=== PATIENT | male | born 1950 | race Caucasian/White ===

== ENCOUNTER 2018-09-20 21:56 | Inpatient (IN) | payer MEDICARE ==
[2018-09-20] MEDS ORDERED: Amoxicillin/Potassium Clav 500 MG TAB PO SCH (23:00)
[2018-09-21 05:20] LABS: #Basophils 0.1 thou/uL (0.0-0.2); #Eosinphils 0.2 thou/uL (0.0-0.7); #Lymphocytes 0.9 thou/uL (1.20-3.40); #Monocytes 0.8 thou/uL (0.11-0.59); #Neutrophils 5.7 thou/uL (1.40-6.50); %Basophils 1.1 % (0.0-1.0); %Eosinophils 2.2 % (0.0-10.0); %Lymphocytes 11.4 % (21.0-51.0); %Monocytes 10.7 % (0.0-10.0); %Neutrophils 74.6 % (42.0-75.0); Hemoglobin 10.6 g/dL (14.0-18.0); Mean Corpuscular HGB CONC 33.2 g/dL (32.0-36.0); Mean Corpuscular Hemoglobin 30.6 pg (27.0-31.0); Mean Corpuscular Volume 92.2 fL (78.0-98.0); Mean Platelet Volume 7.6 fL (7.4-10.4); Platelet Count 254 thou/uL (130-400); RBC Distribution Width 12.2 % (11.5-14.5); Red Blood Cell (RBC) Count 3.46 mill/uL (4.70-6.10); White Blood Cell (WBC) Count 7.6 thou/uL (4.8-10.8)
[2018-09-21 05:40] LABS: ALT (SGPT) 16 U/L (8-55); AST (SGOT) 21 U/L (5-34); Albumin 2.5 g/dL (3.4-4.8); Alkaline Phosphatase 82 U/L (40-150); Anion Gap 9 mmol/L (10-20); BUN (Urea Nitrogen) 5 mg/dL (8.4-25.7); Bilirubin, Total 0.6 mg/dL (0.2-1.2); Calc. Creatinine Clearance 105 mL/min (70-130); Calcium 8.5 mg/dL (7.8-10.44); Carbon Dioxide 27 mmol/L (23-31); Chloride 102 mmol/L (98-107); Estimated GFR-MDRD Greater than 90; Glucose 81 mg/dL (80-115); Potassium 3.6 mmol/L (3.5-5.1); Protein, Total 5.5 g/dL (5.8-8.1); Sodium 134 mmol/L (136-145)
[2018-09-21] MEDS: Amoxicillin/Potassium Clav 500 MG TAB PO SCH ×2 (08:55→21:02)
[2018-09-21] MEDS: Enoxaparin Sodium 40 MG/0.4 ML SYRINGE SC SCH (08:56)
[2018-09-21] MEDS: Thiamine 100 MG TAB PO SCH (08:56)
[2018-09-21] MEDS: Folic Acid 1 MG TAB PO SCH (08:56)
[2018-09-21] MEDS ORDERED: Prevnar 13-Val Conj/PF 0.5 ML SYRINGE IM ONE ×2 (09:00→12:00)
--- NOTE | 2018-09-21 18:13 | PRG ---
DATE OF SERVICE: 09/21/2018 SUBJECTIVE: The patient is sitting up, eating supper, eating poorly. Has eaten breakfast very well, up to 25% of lunch and supper. States he cannot eat much more. Denying any nausea or vomiting. He has been working with therapy, feels unstable, but is cooperating. However, he is having hallucinat ions, seeing mine wirer outside his window, but with no agitation and according to nurses he did not s leep well, but did not try and climb out of bed. OBJECTIVE: VITAL SIGNS: Shows his temperature is 98, pulse 69, respirations 16, O2 sats 97% on room air, blood pressure 152/85. HEENT: Pupils are equal, round, and react to light and accommodation. Sclerae are anicteric. Conju nctivae pale. Oral mucous membranes well hydrated. NECK: Supple. There are no nodes or masses. JVP is not elevated. LUNGS: Clear. CARDIAC: Regular rhythm. ABDOMEN: Soft, nontender. SKIN AND EXTREMITIES: Display no edema, clubbing, cyanosis. NEUROLOGIC: Cranial nerves intact. Deep tendon reflex 2+ and equal. There is diffusely decreased s trength, but no decreased sensation. There is no tremor. LABORATORY DATA: Shows white count 7600, hematocrit 31, hemoglobin 10, sodium 134, potassium 3.6, ch loride 102, bicarbonate 27, BUN 5, creatinine 0.6, albumin 2.5, protein 5.5, calcium 8.5, glucose 81, AST 21 and ALT 16. ASSESSMENT AND PLAN: 1. A 68-year-old white male with history of alcohol abuse and some hallucinations, but no severe wit hdrawal being monitored closely. Librium ordered as needed for agitation. 2. Aspiration pneumonia, resolving with Augmentin. 3. Severe deconditioning, improving slowly with therapy. 4. Significant malnutrition with low albumin and decreased oral intake and we will stress the patien t have dietary consult.
--- NOTE | 2018-09-21 19:05 | PRG ---
DATE OF SERVICE: 09/20/2018 HISTORY OF PRESENT ILLNESS: The patient is a 68-year-old white male, never before seen by myself who presented to [facility] on 09/14 after being found down on the floor unrespon lissa. He was found to have hypoxic respiratory failure, aspiration pneumonia requiring intubation, w as also found to be in shock requiring IV fluids and shock protocol. He responded to IV fluids intub ation, broad spectrum antibiotics and improved. He did have a prolonged QT, but this was found to be due to long-term alcohol abuse, no acute cardiac pathology. Cardiac enzymes returned negative. Blo od cultures returned negative. He awakened and responded, was extubated. Did have problems with con fusion with no agitation, not requiring any alcohol withdrawal therapy. He still refused to eat; how ever, was very weak and did have some problem with hallucinations confabulation, but with no agitatio n. He was started on PT and was cooperating very poorly and was felt not to be able to be discharged home. There was a problem with family and discharge planning, but apparently sister has agreed to chalo rasheed medical decisions for him as he is incompetent at this time. He will therefore be accepted to [facility] for PT, OT. On admission, he was taken thiamine 100 mg daily, folic acid 1 mg da carlos, Pepcid 20 every 12 hours, Lovenox 40 daily, Augmentin 500 q.12 hours for 7 days for possible asp iration pneumonia and Tylenol as needed. ALLERGIES: He has no known allergies. FAMILY MEDICAL HISTORY: Noncontributory. PAST MEDICAL HISTORY: Essentially negative obtained from the family. REVIEW OF SYSTEMS: HEENT: Denies any headaches, dizziness, change in vision or hearing, hoarseness or dysphagia. Pulmonary: Denies cough, sputum production, pneumonia, asthma, tuberculosis. Cardiov ascular: Denies chest pain, orthopnea, paroxysmal nocturnal dyspnea or edema. Gastrointestinal: He denies nausea, vomiting, diarrhea, constipation. He is having decreased appetite. Genitourinary: Denies dysuria, hematuria, nocturia. Musculoskeletal: He has some mild stiffness in joints and extr emities. Neurologic: Denies localized numbness, weakness in arms or extremities. PHYSICAL EXAMINATION: GENERAL: The patient is a thin middle-aged white male, appears in no acute distress, oriented x2 per son and place, but unable to give significant history. VITAL SIGNS: Show a temperature of 97.8, pulse 72, respirations 20, O2 sats 96% on room air, blood p ressure 128/78. HEENT: Pupils are equal, round, and react to light and accommodation. Sclerae are anicteric, Conjun ctivae pale. Oral mucous membranes well hydrated. NECK: Supple, no nodes or masses. JVP is not elevated. LUNGS: Clear, decreased breath sounds, no rales or rhonchi. CARDIAC: Shows regular rhythm. No gallops or murmurs. ABDOMEN: Soft, nontender with no masses or organomegaly. EXTREMITIES: Display no edema, clubbing, cyanosis. NEUROLOGICAL: Intact. No focal findings, but does appear to have problems with recent memory and so me confabulation . ASSESSMENT AND PLAN: A 68-year-old white male with a history of alcohol abuse, possibly had alcohol intoxication, subsequent aspiration pneumonia requiring admission to the hospital for septic shock, i ntubation, sepsis protocol has improved, but still not eating well. Still very weak and is therefore admitted to the [facility] for PT, OT, and monitoring of his nutrition. He is on ora l Augmentin at this time for his resolving aspiration pneumonia appears to be in no respiratory distr ess. He is having some mild confusion and we monitor closely for withdrawal. Discharge planning abebe l be started on admission.
[2018-09-21] MEDS: Acetaminophen 325 MG TAB PO PRN (21:02)
[2018-09-22] MEDS: Enoxaparin Sodium 40 MG/0.4 ML SYRINGE SC SCH (08:36)
[2018-09-22] MEDS: Folic Acid 1 MG TAB PO SCH (08:36)
[2018-09-22] MEDS: Amoxicillin/Potassium Clav 500 MG TAB PO SCH ×2 (08:36→21:02)
[2018-09-22] MEDS: Thiamine 100 MG TAB PO SCH (08:36)
--- NOTE | 2018-09-22 16:02 | PRG ---
DATE OF SERVICE: 09/22/2018 SUBJECTIVE: Mr. Eldridge is resting in bed comfortably. He is confused. He states that he has not seen me in a long time, and he has never seen me in the past. He also states that people keep bring ing him sweets every 30 minutes and I discussed with nursing and that is not happening. He is not blandon ving any tremors. He is not agitated. I did start him on some Librium p.r.n., although he is about 2 weeks out. OBJECTIVE: VITAL SIGNS: He is afebrile, heart rate 67, respirations 16, oxygen saturation 99% on room air, bloo d pressure 114/73. CARDIOVASCULAR: S1, S2 plus. RESPIRATORY SYSTEM: Normal vesicular breath sounds. ABDOMEN: Soft, nontender, bowel sounds heard in all quadrants. EXTREMITIES: Without cyanosis or clubbing. CENTRAL NERVOUS SYSTEM: Significant malnutrition and deconditioning. LABORATORY VALUES: White count of 7.6, H and H are 10.6 and 31.9. Sodium 134, potassium 3.6, BUN an d creatinine are 5 and 0.64. IMPRESSION: 1. Resolving aspiration pneumonitis. 2. Significant protein calorie malnutrition. 3. History of alcohol abuse. 4. Significant deconditioning. PLAN: 1. Nutritional support. 2. Complete Augmentin for a total of 10 days. 3. Monitor respiratory status. 4. Monitor for any signs or symptoms of alcohol withdrawal. 5. Librium p.r.n. 6. PT, OT evaluate and treat. 7. Routine laboratory values. 8. No family at bedside.
[2018-09-22] MEDS: Acetaminophen 325 MG TAB PO PRN (21:02)
[2018-09-22] MEDS: chlordiazePOXIDE HCl 25 MG CAP PO PRN (21:02)
[2018-09-23] MEDS: Folic Acid 1 MG TAB PO SCH (08:03)
[2018-09-23] MEDS: Amoxicillin/Potassium Clav 500 MG TAB PO SCH ×2 (08:03→20:23)
[2018-09-23] MEDS: Thiamine 100 MG TAB PO SCH (08:03)
[2018-09-23] MEDS: Enoxaparin Sodium 40 MG/0.4 ML SYRINGE SC SCH (08:03)
--- NOTE | 2018-09-23 15:31 | PRG ---
DATE OF SERVICE: 09/23/2018 SUBJECTIVE: Mr. Eldridge is still confused, but he is apparently eating better. No real symptoms s uggestive of alcohol withdrawal. No family at bedside. OBJECTIVE: VITAL SIGNS: He is afebrile, heart rate 63, respirations 18, oxygen saturation 99% on room air, bloo d pressure 139/78. CARDIOVASCULAR SYSTEM: S1 and S2 plus. RESPIRATORY SYSTEM: Normal vesicular breath sounds. ABDOMEN: Soft, nontender, bowel sounds heard in all quadrants. EXTREMITIES: Without cyanosis or clubbing. IMPRESSION: 1. Resolving aspiration pneumonitis. 2. History of alcohol abuse. 3. Protein-calorie malnutrition. 4. Deconditioning. PLAN: 1. Continue Augmentin. 2. Nutritional support. 3. DVT and stress ulcer prophylaxis. 4. Decubitus precautions. 5. Routine laboratory values.
[2018-09-23] MEDS: Acetaminophen 325 MG TAB PO PRN (20:23)
[2018-09-23] MEDS: chlordiazePOXIDE HCl 25 MG CAP PO PRN (23:21)
[2018-09-24] MEDS: Enoxaparin Sodium 40 MG/0.4 ML SYRINGE SC SCH (08:36)
[2018-09-24] MEDS: Folic Acid 1 MG TAB PO SCH (08:37)
[2018-09-24] MEDS: Thiamine 100 MG TAB PO SCH (08:37)
[2018-09-24] MEDS: Amoxicillin/Potassium Clav 500 MG TAB PO SCH ×2 (08:37→20:26)
[2018-09-24] MEDS: Acetaminophen 325 MG TAB PO PRN (20:25)
[2018-09-24] MEDS: chlordiazePOXIDE HCl 25 MG CAP PO PRN (21:34)
--- NOTE | 2018-09-25 07:31 | PRG ---
DATE OF SERVICE: 09/24/2018 SUBJECTIVE: The patient lying in the bed, sleeping, difficult to arouse, but does awaken and is aaron d at this time, but appears to be lethargic. OBJECTIVE: Vital signs show a blood pressure of 134/85, temperature is 98.6, pulse 84, respirations 18, O2 sats 99% on room air. Physical Therapy states that the patient is max assist on transfers, blandon ving difficulty with cognition and cooperation and may require 24-hour assistance and physical assist ance at discharge. ASSESSMENT: 1. Severe deconditioning and physically also cognitive deficits possibly related to long-term ETOH a buse 2. Resolving aspiration pneumonia with no evidence of dysphagia. 3. Severe protein calorie malnutrition, improving in the hospital with increased feeding. PLAN: Finish Augmentin for aspiration pneumonia. Continue PT, OT. Continue stress ulcer and DVT pr ophylaxis. Continue nutritional support. Consult case management for discharge planning.
[2018-09-25] MEDS: Acetaminophen 325 MG TAB PO PRN (08:21)
[2018-09-25] MEDS: Enoxaparin Sodium 40 MG/0.4 ML SYRINGE SC SCH (08:21)
[2018-09-25] MEDS: Amoxicillin/Potassium Clav 500 MG TAB PO SCH ×2 (08:21→20:26)
[2018-09-25] MEDS: Thiamine 100 MG TAB PO SCH (08:21)
[2018-09-25] MEDS: Folic Acid 1 MG TAB PO SCH (08:21)
[2018-09-25] MEDS: chlordiazePOXIDE HCl 25 MG CAP PO PRN (20:26)
[2018-09-26] MEDS: Amoxicillin/Potassium Clav 500 MG TAB PO SCH ×2 (08:06→20:36)
[2018-09-26] MEDS: Thiamine 100 MG TAB PO SCH (08:07)
[2018-09-26] MEDS: Folic Acid 1 MG TAB PO SCH (08:07)
[2018-09-26] MEDS: Enoxaparin Sodium 40 MG/0.4 ML SYRINGE SC SCH (08:07)
--- NOTE | 2018-09-26 18:12 | PRG ---
DATE OF SERVICE: 09/26/2018 SUBJECTIVE: The patient is lying in bed, awake and alert, fairly lucid. He states he is not against going to the skilled nursing. He has not been cooperating with therapy. OBJECTIVE: VITAL SIGNS: Blood pressure 132/73, O2 sats 98% on room air, temperature 98.7. ASSESSMENT: 1. 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 Resolving aspiration pneumonia. 3. Severe deconditioning. 4. Malnutrition, improving with good appetite. PLAN: 1. Discussed with PT, OT tomorrow. 2. Discussed with case management.
--- NOTE | 2018-09-26 18:47 | PRG ---
DATE OF SERVICE: 09/25/2018 SUBJECTIVE: The patient feels well, lying in the bed, but very confused and not cooperating well wit h therapy. OBJECTIVE: VITAL SIGNS: Temperature is 98.7, O2 sats 95% on room air, blood pressure 132/73. LUNGS: Clear. CARDIAC: Regular rhythm. ABDOMEN: Soft and nontender. The patient only activity, going to the bathroom with assistance, but not really cooperating with the rapy. Complains of burning pain in the feet. ASSESSMENT: 1. Possible Wernicke's encephalopathy causing confusion, nystagmus, and neuropathy. 2. Severe deconditioning with poor cooperation with physical therapy. 3. Resolved aspiration pneumonia. PLAN: 1. Continue PT and OT. 2. Discussed with physical therapy. 3. Consider alf placement.
[2018-09-26] MEDS: Acetaminophen 325 MG TAB PO PRN (20:36)
[2018-09-26] MEDS: chlordiazePOXIDE HCl 25 MG CAP PO PRN (20:36)
[2018-09-27] MEDS: Amoxicillin/Potassium Clav 500 MG TAB PO SCH ×2 (08:35→20:37)
[2018-09-27] MEDS: Folic Acid 1 MG TAB PO SCH (08:35)
[2018-09-27] MEDS: Acetaminophen 325 MG TAB PO PRN ×2 (08:35→16:31)
[2018-09-27] MEDS: Thiamine 100 MG TAB PO SCH (08:35)
[2018-09-27] MEDS: Enoxaparin Sodium 40 MG/0.4 ML SYRINGE SC SCH (08:35)
--- NOTE | 2018-09-28 07:41 | PRG ---
DATE OF SERVICE: 09/27/2018 SUBJECTIVE: The patient has been more sedated for the last several days. The nurses feels his Libri um can be decreased. He is not having any agitation. He is cooperating poorly with physical therapy . OBJECTIVE: VITAL SIGNS: Temperature 98.6, pulse 96, respirations 20, O2 sats 98% on room air, blood pressure 13 7/81. The patient is eating 40-100% of meals, getting stronger; however, still having ataxia, dizziness, an d neuropathy. He could not ambulate last visit secondary to the ataxia, we will discuss with PT. ASSESSMENT: 1. Wernicke's encephalopathy, persistent limiting therapy with cognitive and physical ability. 2. Severe deconditioning, poor cooperation, improving with therapy. 3. Resolved aspiration pneumonia on Augmentin until 09/29/2018.
[2018-09-28] MEDS: Folic Acid 1 MG TAB PO SCH (08:21)
[2018-09-28] MEDS: Thiamine 100 MG TAB PO SCH (08:21)
[2018-09-28] MEDS: Amoxicillin/Potassium Clav 500 MG TAB PO SCH ×2 (08:21→20:48)
[2018-09-28] MEDS: Acetaminophen 325 MG TAB PO PRN ×2 (08:48→19:34)
--- NOTE | 2018-09-28 13:50 | DIS ---
DATE OF ADMISSION: 09/21/2018 DATE OF TRANSFER: 09/28/2018 to [facility]. FINAL DIAGNOSES: 1. Wernicke-Korsakoff syndrome with encephalopathy and ataxia. 2. Severe deconditioning, poor cooperation with therapy. 3. Resolved aspiration pneumonia. HOSPITAL COURSE: The patient is a 68-year-old white male, never before seen by myself [facility] being found down on the floor with hypoxic respiratory failure, aspiration pneumonia, septic shock, responded to aggressive treatment with IV fluids, intubation, broad spectrum antibioti cs and improved daily, but was cooperating very poorly with PT and OT secondary to his weakness and a lso his mental status as he had problems with hallucination and confabulation. He was therefore velez sferred to [facility] on 09/20/2018 on thiamine, folic acid, and finishing Augmentin thera py for his aspiration pneumonia. He still had some hallucinations and confabulations on admission, b ut he was in no distress; however, he was unable to cooperate with therapy because of significant goldie corina and confusion and inability to follow directions and slowly progressed with this therapy until it was felt that he had reached maximum hospital benefit and was safe to be transferred to the [facility] for continued therapy. It is felt that he most likely is going to require long-te care. His aspiration pneumonia completely resolved. His laboratory on admission showed a white c ount 7600, hematocrit 31, hemoglobin 10, sodium 134, potassium 3.6, chloride 102, bicarbonate 27, BUN 5, creatinine 0.64, total protein 5.5, albumin 2.5. He will be followed by myself at the custodial. He will continue on the medications of folic acid 1 mg daily, thiamine 100 mg daily, Tylenol as neede d, handheld nebulizer with albuterol as needed, famotidine 20 twice daily. His Librium has been disc ontinued because of sedation and no significant agitation and his antibiotics have finished. His prognosis is poor and most likely this is chronic symptoms.
--- NOTE | 2018-09-29 08:26 | PRG ---
DATE OF SERVICE: 09/29/2018 DATE OF ADMISSION: 09/20/2018 HISTORY OF PRESENT ILLNESS: Mr. Eldridge is a 68-year-old white male admitted to Dr. Ruggiero after he presented to [facility] with being unresponsive. He was found to have hypoxic respirato ry failure, aspiration pneumonia requiring intubation, shock requiring IV fluids and shock protocol, Wernicke/Korsakoff syndrome and generalized weakness. The patient was stabilized and transferred to [facility] for physical therapy and occupational therapy and to finish his Augmentin for his aspiration pneumonia. Unfortunately, the patient has been unable to participate well with physical therapy and occupational therapy. He was supposed to be transferred yesterday to long-term care at the correction, but adam arently, his sister were resistant to sign the papers because then they were liable for his bills. A PS has become involved and hopefully we will be able to place this patient to where he can get some w ell needed care. PHYSICAL EXAMINATION: VITAL SIGNS: This morning reveal blood pressure 148/88, pulse 97-99, respirations 20, O2 sat 99% on room air, T-max 99.7. GENERAL: This is a well-developed, well-nourished, very thin, white haired, bearded male that was aw wili upon my walking in. Absolutely confused and oriented to self, not place, time or situation. Jerry ps mumbling that he does not like the idiots here, then keep walking around his room and he needs to get out of here. HEENT: Reveals normocephalic, nontraumatic cranium. The pupils are equally round. Nose and throat are dry. NECK: Supple, without mass, nodes or bruits. LUNGS: Chest is clear to auscultation. No rales, rhonchi, wheezes or cough is heard. HEART: Reveals a regular rate and rhythm without murmurs, gallops or rubs. ABDOMEN: Scaphoid, soft, nontender, without organomegaly, normal bowel sounds are noted. No rebound or guarding is noted. : Deferred. EXTREMITIES: Reveal no clubbing, cyanosis or edema. The patient is very thin and has some muscle wa sting. ASSESSMENT: 1. Wernicke-Korsakoff syndrome with encephalopathy and ataxia. 2. Severe deconditioning and weakness. 3. Poor cooperation and unable to follow commands. 4. Resolved aspiration pneumonia. PLAN: 1. The patient has been referred to Adult Protective Services for further evaluation and help in christine cement. 2. We will continue the patient here until he can be placed. 3. Patient will be continued to be followed by Dr. Ruggiero when he returns on Monday night.
[2018-09-29] MEDS: Amoxicillin/Potassium Clav 500 MG TAB PO SCH ×2 (08:47→20:25)
[2018-09-29] MEDS: Thiamine 100 MG TAB PO SCH (08:47)
[2018-09-29] MEDS: Folic Acid 1 MG TAB PO SCH (08:47)
[2018-09-29] MEDS: Acetaminophen 325 MG TAB PO PRN (09:59)
--- NOTE | 2018-09-30 07:09 | PRG ---
DATE OF SERVICE: 09/30/2018. SUBJECTIVE: Mr. Eldridge is a 68-year-old alcoholic white male that was brought to [facility] after being found on the ground unresponsive. He was found to have hypoxic respiratory failure, aspiration pneumonia requiring intubation, shock requiring IV fluids and shock protocol. He is noted to have Wernicke-Korsakoff syndrome and generalized weakness. He was transferred to [facility] after being stabilized for occupational therapy and physical therapy. He is also here to finish his Augmentin for his aspiration pneumonia. The patient has been unable to participate with therapy, because of his Wernicke-Korsakoff syndrome a nd his inability to follow commands. He is also significantly demented and confused. Adult [facility] has been called and is involved in finding placement for him, because his family members refused to take responsibility for him. PHYSICAL EXAMINATION: VITAL SIGNS: Today reveal blood pressure at 139/88, pulse 97, respirations 18, O2 sat 96%-97% on pamela m air, T-max 97.6. GENERAL: This is a well-developed, well-nourished, very thin white male resting, but awake, so that he makes all types of comments as soon as he walked into the room. Last night, the nurses reported t hat he said he was from another plan and he was only going to be here for a couple of months. He als o said that he was going to go play a round of tennis this morning. Generally, this is a well-develo ped, well-nourished, thin, bearded white male in no apparent distress. Absolutely confused and orien angelica only to self. HEENT: Reveals normocephalic, nontraumatic cranium. Pupils equal, round, and reactive. Extraocular movements intact. Nose and throat are moist this morning. NECK: Supple, without mass, nodes, bruits. LUNGS: Chest is clear to auscultation. No rales, no rhonchi, no wheezes are noted. No cough is not ed. HEART: Reveals a regular rate and rhythm without murmurs, gallops or rubs, although it is very dista nt. ABDOMEN: Soft, scaphoid, nontender, without organomegaly. Normal bowel sounds are noted in all 4 qu adrants. No rebound or guarding is noted. GENITOURINARY: Deferred. EXTREMITIES: Reveal no clubbing, cyanosis or edema, just generalized weakness. The patient is very thin, has muscle wasting. IMPRESSION: 1. Wernicke-Korsakoff syndrome with encephalopathy and ataxia. 2. Severe deconditioning and weakness. 3. Poor cooperation, unable to follow commands. 4. Resolved aspiration pneumonia. PLAN: 1. Patient has been referred to Adult Protective Services for placement. 2. Continue supportive care here. 3. Dr. Ruggiero will continue to follow the patient and will return compensation and benefits analyst tonight after 9:00.
[2018-09-30] MEDS: Acetaminophen 325 MG TAB PO PRN (09:06)
[2018-09-30] MEDS: Folic Acid 1 MG TAB PO SCH (09:06)
[2018-09-30] MEDS: Thiamine 100 MG TAB PO SCH (09:06)
[2018-10-01 05:43] LABS: #Basophils 0.1 thou/uL (0.0-0.2); #Eosinphils 0.2 thou/uL (0.0-0.7); #Lymphocytes 1.4 thou/uL (1.20-3.40); #Monocytes 0.9 thou/uL (0.11-0.59); #Neutrophils 4.2 thou/uL (1.40-6.50); %Basophils 1.1 % (0.0-1.0); %Lymphocytes 20.9 % (21.0-51.0); %Monocytes 12.6 % (0.0-10.0); %Neutrophils 62.5 % (42.0-75.0); Hemoglobin 9.9 g/dL (14.0-18.0); Mean Corpuscular HGB CONC 31.4 g/dL (32.0-36.0); Mean Corpuscular Hemoglobin 29.9 pg (27.0-31.0); Mean Corpuscular Volume 95.2 fL (78.0-98.0); Mean Platelet Volume 6.2 fL (7.4-10.4); Platelet Count 241 thou/uL (130-400); RBC Distribution Width 13.8 % (11.5-14.5); Red Blood Cell (RBC) Count 3.31 mill/uL (4.70-6.10); White Blood Cell (WBC) Count 6.8 thou/uL (4.8-10.8)
[2018-10-01 05:55] LABS: ALT (SGPT) 21 U/L (8-55); AST (SGOT) 25 U/L (5-34); Alkaline Phosphatase 141 U/L (40-150); Anion Gap 12 mmol/L (10-20); BUN (Urea Nitrogen) 19 mg/dL (8.4-25.7); Bilirubin, Total 0.2 mg/dL (0.2-1.2); Calc. Creatinine Clearance 101 mL/min (70-130); Carbon Dioxide 23 mmol/L (23-31); Chloride 109 mmol/L (98-107); Estimated GFR-MDRD Greater than 90; Globulin 3.1 g/dL (2.4-3.5); Glucose 112 mg/dL (80-115); Protein, Total 6.1 g/dL (5.8-8.1); Sodium 140 mmol/L (136-145)
[2018-10-01] MEDS: Thiamine 100 MG TAB PO SCH (08:50)
[2018-10-01] MEDS: Folic Acid 1 MG TAB PO SCH (08:50)
[2018-10-02] MEDS: Folic Acid 1 MG TAB PO SCH (08:28)
[2018-10-02] MEDS: Thiamine 100 MG TAB PO SCH (08:29)
[2018-10-03] MEDS: Folic Acid 1 MG TAB PO SCH (08:55)
[2018-10-03] MEDS: Thiamine 100 MG TAB PO SCH (08:55)
--- NOTE | 2018-10-03 19:33 | PRG ---
DATE OF SERVICE: 10/03/2018 SUBJECTIVE: The patient feels well, lying in bed, resting and is asking for Francois cigarettes now, b ecoming slightly agitated, but still confused and unwilling to cooperate, but in no distress. OBJECTIVE: VITAL SIGNS: Temperature 97.8, pulse 96, respirations 18, O2 sats 94% on room air, blood pressure is 135/84. ASSESSMENT: 1. Stable Wernicke's encephalopathy with no improvement 2. Nicotine abuse, requesting cigarettes. 3. Severe deconditioning. 4. Improved nutrition with good appetite. PLAN: Start nicotine patch. [facility] Apparently, they may [facility] the patient the family accepts.
--- NOTE | 2018-10-03 20:13 | PRG ---
DATE OF SERVICE: 10/01/2018 SUBJECTIVE: The patient is waiting discharge to custodial and has reached maximum hospital benefi t from PT secondary to cognitive deficits. Apparently, sister has not agreed to sign him in and ther efore the patient is here awaiting Adult Protective Services. OBJECTIVE: VITAL SIGNS: Temperature is 97.4, pulse 86, respirations 16, O2 sats 99% on room air, blood pressure is . LUNGS: Clear. CARDIAC: Showed regular rhythm. ABDOMEN: Soft and nontender. SKIN AND EXTREMITIES: Showed no edema, clubbing or cyanosis. Physical therapy states that the patient has been discontinued from therapy. ASSESSMENT: 1. Wernicke's encephalopathy with cognitive deficits limiting therapy, unable to progress and awaiti ng custodial placement. 2. Severe deconditioning and weakness, stable. 3. Resolved aspiration pneumonia. PLAN: Await results of Adult Protective Services. Continue supportive care.
--- NOTE | 2018-10-03 20:13 | PRG ---
DATE OF SERVICE: 10/02/2018 SUBJECTIVE: The patient feels well, lying in bed, in no distress. Apparently, however, Adult Protec tive Services felt that they did not want to take on his case [facility] care. OBJECTIVE: VITAL SIGNS: Blood pressure 134/91, O2 sats 94% on room air, pulse 99. LUNGS: Clear. CARDIAC: Shows regular rhythm. ABDOMEN: Soft and nontender. ASSESSMENT: Persistent Wernicke's encephalopathy and persistent deconditioning secondary to refusal to cooperate. PLAN: Possible referral to ethics committee for discharge planning.
[2018-10-04] MEDS: Folic Acid 1 MG TAB PO SCH (09:18)
[2018-10-04] MEDS: Nicotine 21 MG PATCH TD SCH (09:18)
[2018-10-04] MEDS: Thiamine 100 MG TAB PO SCH (09:18)
[2018-10-05] MEDS: Folic Acid 1 MG TAB PO SCH (08:03)
[2018-10-05] MEDS: Nicotine 21 MG PATCH TD SCH (08:04)
[2018-10-05] MEDS: Thiamine 100 MG TAB PO SCH (08:05)
[2018-10-06] MEDS: Nicotine 21 MG PATCH TD SCH (08:35)
[2018-10-06] MEDS: Folic Acid 1 MG TAB PO SCH (08:35)
[2018-10-06] MEDS: Thiamine 100 MG TAB PO SCH (08:35)
[2018-10-06] MEDS: Acetaminophen 325 MG TAB PO PRN ×2 (14:46→20:42)
--- NOTE | 2018-10-06 19:15 | PRG ---
DATE OF SERVICE: 10/06/2018 SUBJECTIVE: Mr. Eldridge is doing the same. He is pleasantly confused. No family at bedside. Dis cussed with nursing and no concerns. Apparently, [facility] are [facility]. OBJECTIVE: VITAL SIGNS: He is afebrile, heart rate is 100, respirations are 18, oxygen saturation is 97% on pamela m air, blood pressure 124/77. CARDIOVASCULAR: S1, S2 . RESPIRATORY SYSTEM: Normal vesicular breath sounds. ABDOMEN: Soft, nontender, bowel sounds heard in all quadrants. EXTREMITIES: Without cyanosis or clubbing. Peripheral pulses are palpable. IMPRESSION: 1. Wernicke's encephalopathy from significant alcohol abuse. 2. Resolved aspiration pneumonitis. 3. Protein calorie malnutrition. 4. Deconditioning. PLAN: 1. Continue nutritional support. 2. DVT and stress ulcer prophylaxis. 3. Decubitus precautions. 4. Routine laboratory values. 5. Placement.
[2018-10-07] MEDS: Thiamine 100 MG TAB PO SCH (08:47)
[2018-10-07] MEDS: Folic Acid 1 MG TAB PO SCH (08:47)
[2018-10-07] MEDS: Nicotine 21 MG PATCH TD SCH (08:47)
[2018-10-08] MEDS: Folic Acid 1 MG TAB PO SCH ×2 (09:10→09:11)
[2018-10-08] MEDS: Nicotine 21 MG PATCH TD SCH (09:10)
[2018-10-08] MEDS: Thiamine 100 MG TAB PO SCH ×2 (09:10→09:39)
[2018-10-08] MEDS ORDERED: cloNIDine 0.1 MG TAB PO SCH (13:45)
[2018-10-08] MEDS: cloNIDine 0.1mg/24 Hour PATCH TD SCH (17:59)
[2018-10-09] MEDS: Thiamine 100 MG TAB PO SCH (08:15)
[2018-10-09] MEDS: Folic Acid 1 MG TAB PO SCH (08:15)
[2018-10-09] MEDS: Nicotine 21 MG PATCH TD SCH (08:15)
[2018-10-09] MEDS: Acetaminophen 325 MG TAB PO PRN ×3 (08:15→23:54)
[2018-10-10] MEDS: Nicotine 21 MG PATCH TD SCH (08:23)
[2018-10-10] MEDS: Folic Acid 1 MG TAB PO SCH (08:23)
[2018-10-10] MEDS: Thiamine 100 MG TAB PO SCH (08:23)
--- NOTE | 2018-10-10 18:35 | PRG ---
DATE OF SERVICE: 10/05/2018 SUBJECTIVE: The patient feels well with no complaints, eating well. No nausea, vomiting, diarrhea, chest pain, shortness of breath. OBJECTIVE: GENERAL: Case management is working on [facility] versus a possible transfer to the [facility] if can be arranged here or locally, ethics committee in [place]. Case management is working also. VITAL SIGNS: Temperature is 98, pulse 82, respirations 20, O2 sats 98% on room air, blood pressure 1 45/91. LUNGS: Clear. CARDIAC: Shows regular rhythm. ABDOMEN: Soft and nontender. ASSESSMENT: Acute encephalopathy, stable, improving nutrition and strength, but persistent cognitive deficits, placement problem. PLAN: Continue to follow with case management and discharge when facility available.
--- NOTE | 2018-10-10 18:37 | PRG ---
DATE OF SERVICE: 10/04/2018 SUBJECTIVE: Patient is awake and alert, in no distress, but confused and confabulating. OBJECTIVE: VITAL SIGNS: Show temperature is 98.3, pulse 106, respirations 20, O2 sats 97% on room air, blood pr essure 132/75. GENERAL: Therapy has discontinued working with the patient as he is cognitively unable to follow dir ections. He is eating well, 50-100% of meals. LUNGS: Clear. CARDIAC: Shows regular rhythm. ABDOMEN: Soft and nontender. SKIN AND EXTREMITIES: Display no edema, clubbing, cyanosis. manager family is working on transfer to the [facility] long-term, but apparently, this is still being proce ssed and will be transferred when this is available. ASSESSMENT AND PLAN: 1. Acute encephalopathy with inability to maintain ADLs. 2. Deconditioning, minimal improvement with therapy secondary to cognitive deficits. 3. Good oral intake and appetite.
--- NOTE | 2018-10-10 18:45 | PRG ---
DATE OF SERVICE: 10/09/2018 SUBJECTIVE: The patient feels well, sitting up in the bed, cheerful, able to go to the bathroom with assistance. Has not fallen. Eating very well. OBJECTIVE: VITAL SIGNS: Temperature is 98.7, pulse 90, respirations 19, O2 sat is 98% on room air, blood pressu re 133/75. ASSESSMENT: Resolving deconditioning, was still very weak, improving nutrition, persistent confusion , encephalopathy secondary to Wernicke. PLAN: Await decision from ethics committee and arrange for letter to be sent to his bank documenting his incoherence and inability to maintain his financial condition.
--- NOTE | 2018-10-10 19:05 | PRG ---
DATE OF SERVICE: 10/10/2018 SUBJECTIVE: The patient feels well, sitting up in the bed, no complaints, resting, eating well today . OBJECTIVE: VITAL SIGNS: Blood pressure was 162/92, temperature is 98, pulse 87, respirations 18, O2 sat is 98% on room air. LUNGS: Clear. CARDIAC: Regular rhythm. ABDOMEN: Soft and nontender. SKIN AND EXTREMITIES: Display no edema, clubbing, cyanosis. NEUROLOGIC: Shows no focal findings, only diffuse weakness and diffuse confusion and only oriented t o person. ASSESSMENT: 1. Wernicke's encephalopathy, stable. 2. Improving nutrition. 3. Slowly improving conditioning. PLAN: Await decision of care home as well as patient and weather. Guardianship can be obta ined by case management.
--- NOTE | 2018-10-10 19:08 | PRG ---
DATE OF SERVICE: 10/08/2018 SUBJECTIVE: The patient feels well, lying in bed, no complaints, alert, and cheerful, but very confu sed. Ethics committee apparently is attempting to have the patient's declared incompetent and therefore [facility] able to draft from his checking in order to have him admitted to the [facility]. OBJECTIVE: VITAL SIGNS: Blood pressure is 149/103, temperature is 98.3, pulse 95, respirations 20, O2 saturatio n is 95%. LUNGS: Clear. CARDIAC: Showed regular rhythm. ABDOMEN: Soft, nontender. SKIN AND EXTREMITIES: Display no edema, clubbing, cyanosis. NEUROLOGICAL: Intact except for confusion, ambulation, but generalized weakness, no focal findings. The patient is eating 50%-100% of meals. ASSESSMENT: Stable Wernicke's encephalopathy with no Korsakoff psychosis, slowly improving appetite and strength, but persistent inability to maintain ADLs. PLAN: Follow with the ethics committee and case management about discharge planning. Continue to mo nitor closely for nutritional improvement.
[2018-10-11 05:30] LABS: #Basophils 0.1 thou/uL (0.0-0.2); #Eosinphils 0.2 thou/uL (0.0-0.7); #Lymphocytes 1.5 thou/uL (1.20-3.40); %Basophils 0.9 % (0.0-1.0); %Eosinophils 3.1 % (0.0-10.0); %Lymphocytes 19.4 % (21.0-51.0); %Monocytes 12.2 % (0.0-10.0); %Neutrophils 64.3 % (42.0-75.0); Mean Corpuscular HGB CONC 31.3 g/dL (32.0-36.0); Mean Corpuscular Hemoglobin 29.2 pg (27.0-31.0); Mean Corpuscular Volume 93.1 fL (78.0-98.0); Mean Platelet Volume 6.2 fL (7.4-10.4); Platelet Count 294 thou/uL (130-400); RBC Distribution Width 13.1 % (11.5-14.5); Red Blood Cell (RBC) Count 3.76 mill/uL (4.70-6.10); White Blood Cell (WBC) Count 7.7 thou/uL (4.8-10.8)
[2018-10-11 05:38] LABS: ALT (SGPT) 18 U/L (8-55); AST (SGOT) 21 U/L (5-34); Albumin 3.3 g/dL (3.4-4.8); Alkaline Phosphatase 91 U/L (40-150); Anion Gap 13 mmol/L (10-20); BUN (Urea Nitrogen) 17 mg/dL (8.4-25.7); Bilirubin, Total 0.4 mg/dL (0.2-1.2); Calc. Creatinine Clearance 103 mL/min (70-130); Calcium 9.3 mg/dL (7.8-10.44); Carbon Dioxide 23 mmol/L (23-31); Chloride 108 mmol/L (98-107); Estimated GFR-MDRD Greater than 90; Globulin 3.3 g/dL (2.4-3.5); Glucose 112 mg/dL (80-115); Potassium 3.9 mmol/L (3.5-5.1); Protein, Total 6.6 g/dL (5.8-8.1); Sodium 140 mmol/L (136-145)
[2018-10-11] MEDS: Nicotine 21 MG PATCH TD SCH (08:03)
[2018-10-11] MEDS: Thiamine 100 MG TAB PO SCH (08:04)
[2018-10-11] MEDS: Folic Acid 1 MG TAB PO SCH (08:04)
[2018-10-11] MEDS: Acetaminophen 325 MG TAB PO PRN (09:26)
--- NOTE | 2018-10-11 15:33 | CT ---
CT BRAIN WITHOUT CONTRAST: HISTORY: Altered mental status and encephalopathy. COMPARISON: 09/13/2018 FINDINGS: No acute infarct, hemorrhage, or hydrocephalus is present. There is generalized cerebral and cerebel lar atrophy. There is mild chronic small vessel white matter ischemic change. The mastoid air cells are clear. The skull is intact. IMPRESSION: No acute intracranial abnormality. POS: BOLA
[2018-10-12] MEDS: Folic Acid 1 MG TAB PO SCH (09:03)
[2018-10-12] MEDS: Thiamine 100 MG TAB PO SCH (09:03)
[2018-10-12] MEDS: Nicotine 21 MG PATCH TD SCH (09:04)
[2018-10-13] MEDS: Nicotine 21 MG PATCH TD SCH (09:02)
[2018-10-13] MEDS: Folic Acid 1 MG TAB PO SCH (09:03)
[2018-10-13] MEDS: Thiamine 100 MG TAB PO SCH (09:03)
--- NOTE | 2018-10-13 09:30 | PRG ---
DATE OF SERVICE: 10/11/2018 SUBJECTIVE: The patient had episode today of unresponsiveness, lasting for a few minutes. Code braulio richardson was called. ER physician evaluated the patient and was found to have no focal defects and responde d normally within a few minutes. He appeared to have no tonic-clonic movements, but it was felt this was possibly seizure activity from his Wernicke's encephalopathy. OBJECTIVE: VITAL SIGNS: Remained stable with a temperature of 97, pulse 85, respirations 24, O2 sat 96% on room air, blood pressure 123/82. NEUROLOGICAL: Showed no focal findings. No weakness or numbness in the arms or extremities. No rig idity. No tremor. The patient remained only oriented to person. IMAGING: CT scan was done showed no abnormality except for generalized cerebral and cerebellar atrop hy and chronic small vessel disease. LABORATORY DATA: Showed a white count of 7700, hematocrit 35, hemoglobin 11. Sodium was 140, potass ium 3.9, chloride 108, bicarbonate 23, BUN 17, creatinine 0.65, albumin 3.3, AST 21, ALT 18. ASSESSMENT: 1. Episode of unresponsive, possibly due to a seizure disorder secondary to Wernicke's encephalopath y versus transient ischemic attack, although feel most likely a seizure. 2. Wernicke's encephalopathy secondary to severe alcohol abuse. 3. Hypertension, controlled to goal on clonidine patch. PLAN: Start Dilantin 200 mg 3 times daily and check Dilantin level in the morning. Continue support yane care with clonidine patch, thiamine and Librium. Still await fpc placement.
--- NOTE | 2018-10-13 09:34 | PRG ---
DATE OF SERVICE: 10/12/2018 SUBJECTIVE: The patient feels well today. He is alert and at baseline. No change in his confusion, but no further episodes of unresponsiveness. No weakness. No nausea and vomiting. OBJECTIVE: VITAL SIGNS: Temperature is 97.9, pulse 84, respirations 20, O2 sats 98% on room air, blood pressure 123/83. NEUROLOGICAL: Shows no focal findings. LABORATORY DATA: Shows a Dilantin level still subtherapeutic at 4.2 on 200 of Dilantin 3 times daily for the first day. ASSESSMENT: Persistent Wernicke's encephalopathy with possible seizure disorder, controlled on Mannie tin, but with subtherapeutic level. PLAN: Continue Dilantin 200 three times daily and repeat level in the a.m.
--- NOTE | 2018-10-13 10:24 | PRG ---
DATE OF SERVICE: 10/13/2018 SUBJECTIVE: The patient feels well, sitting up, eating breakfast. Does state that he has had episod es of falling out in the past with also episodes of difficulty with vision and hearing. When describ ed this episode that he had yesterday that he may have had a seizure, he feels like this could have b een going on for a period of time. OBJECTIVE: VITAL SIGNS: Blood pressure 96/64, temperature is 99, pulse 96, respirations 20, O2 sat 95% on room air. NEUROLOGICAL: Shows no focal findings. The patient is still only oriented x1. LABORATORY DATA: Yesterday shows Dilantin level still subtherapeutic. It will be checked again loree rrow morning and we will continue on Dilantin 200 three times daily until that time. ASSESSMENT: 1. Persistent Wernicke's encephalopathy with no agitation with poor memory. Persistent confusion an d disorientation. 2. Episode of unresponsive yesterday, possibly due to seizures. Treated with Dilantin with subthera peutic level. PLAN: Repeat Dilantin level in the a.m. Continue Dilantin 200 three times daily. Apparently, the p minda is requiring court decision on his custody and awaiting this.
[2018-10-14] MEDS: Folic Acid 1 MG TAB PO SCH (09:14)
[2018-10-14] MEDS: Thiamine 100 MG TAB PO SCH (09:14)
[2018-10-14] MEDS: Nicotine 21 MG PATCH TD SCH (09:14)
[2018-10-15] MEDS: Nicotine 21 MG PATCH TD SCH (08:27)
[2018-10-15] MEDS: Folic Acid 1 MG TAB PO SCH (08:27)
[2018-10-15] MEDS: Thiamine 100 MG TAB PO SCH (08:27)
--- NOTE | 2018-10-15 09:00 | PRG ---
DATE OF SERVICE: 10/15/2018. SUBJECTIVE: The patient feels well, lying in the bed, still only oriented to person. Eating well, n ot able to get out of the bed and noncooperative, but in no distress and not agitated. OBJECTIVE: VITAL SIGNS: Blood pressure is 129/83, temperature is 97, pulse 85, respirations 20, O2 sats 99% on room air. LUNGS: Clear. CARDIAC: Shows regular rhythm. ABDOMEN: Soft, nontender. SKIN AND EXTREMITIES: Showed no edema. NEUROLOGICAL: Intact. ASSESSMENT: 1. Acute encephalopathy with recent seizure, controlled on Dilantin. We will maintain on Dilantin 3 00 daily, and check levels again tomorrow. 2. Placement difficulty as the patient required guardianship to be ordered by the court in order to be placed in a facility.
--- NOTE | 2018-10-15 09:15 | PRG ---
DATE OF SERVICE: 10/14/2018 SUBJECTIVE: The patient lying in the bed, feels well, no complaints, but still confused, only orient ed to person. He is eating well, but he is unable to get out of the bed or refuses to get out of the bed. OBJECTIVE: VITAL SIGNS: Shows temperature is 99, pulse 92, respirations 18, O2 sats 95% on room air, blood pres sure 136/70. LUNGS: Clear. CARDIAC EXAMINATION: Regular rhythm. ABDOMEN: Soft and nontender. NEUROLOGICAL: Shows no focal findings. ASSESSMENT: 1. Acute encephalopathy with possible recent seizure, controlled on Dilantin with therapeutic Dilant in level of 12.3 on 200 mg 3 times daily, but we will check again tomorrow and decrease dose to 300 m g tomorrow. 2. Placement in difficulty, being evaluated in the courts for guardianship prior to placement at a [facility].
[2018-10-15] MEDS: cloNIDine 0.1mg/24 Hour PATCH TD SCH (18:09)
[2018-10-16] MEDS: Thiamine 100 MG TAB PO SCH (08:39)
[2018-10-16] MEDS: Folic Acid 1 MG TAB PO SCH (08:39)
[2018-10-16] MEDS: Nicotine 21 MG PATCH TD SCH (08:39)
[2018-10-17] MEDS: Thiamine 100 MG TAB PO SCH (09:11)
[2018-10-17] MEDS: Folic Acid 1 MG TAB PO SCH (09:12)
[2018-10-17] MEDS: Nicotine 21 MG PATCH TD SCH (09:13)
--- NOTE | 2018-10-17 10:12 | PRG ---
DATE OF SERVICE: 10/17/2018 SUBJECTIVE: The patient feels well, no complaints, is a little bit confused and only oriented to per son. Has been eating, but he is not getting out of bed. Still awaiting court decision on guardiansh ip. OBJECTIVE: Shows, VITAL SIGNS: Blood pressure is 131/83, temperature 97, pulse 92, respirations 18, O2 sat is 96% on r oom air. LUNGS: Clear. CARDIAC EXAMINATION: Shows regular rhythm. ABDOMEN: Soft and nontender. ASSESSMENT: Wernicke's encephalopathy with recent seizure disorder, controlled now on Dilantin with therapeutic level 13.1 today. PLAN: Continue Dilantin. Continue supportive care. Await guardianship on patient and legal proceed ings.
--- NOTE | 2018-10-18 06:18 | PRG ---
DATE OF SERVICE: 10/17/2018 SUBJECTIVE: The patient feels same. Awake and alert, not getting out of bed, but eating well and on ly oriented to person, but in no distress. No agitation, no further episodes of unresponsiveness. OBJECTIVE: VITAL SIGNS: Blood pressure is 137/86, temperature 98, pulse 83, respirations 18, O2 sats 97% on pamela m air. LUNGS: Clear. CARDIAC EXAMINATION: Showed regular rhythm. ABDOMEN: Soft and nontender. SKIN AND EXTREMITIES: Showed no edema, clubbing, cyanosis. NEUROLOGICAL: Intact. No focal findings, but with diffuse confusion orientation only to 1, no furth er seizures, recent Dilantin level therapeutic at 13.1. ASSESSMENT: Acute encephalopathy, appears to be stable, possible seizure disorder, controlled with D ilantin with therapeutic levels. PLAN: Await legal decision on guardianship and placement in a facility. Continue to maintain Dilant in. Continue to monitor nutrition. Repeat laboratories in the a.m.
[2018-10-18 08:58] LABS: #Basophils 0.1 thou/uL (0.0-0.2); #Eosinphils 0.3 thou/uL (0.0-0.7); #Lymphocytes 1.5 thou/uL (1.20-3.40); #Neutrophils 5.4 thou/uL (1.40-6.50); %Basophils 1.6 % (0.0-1.0); %Eosinophils 3.8 % (0.0-10.0); %Lymphocytes 17.8 % (21.0-51.0); %Monocytes 11.5 % (0.0-10.0); %Neutrophils 65.3 % (42.0-75.0); Hemoglobin 11.1 g/dL (14.0-18.0); Mean Corpuscular Hemoglobin 30.1 pg (27.0-31.0); Mean Corpuscular Volume 91.2 fL (78.0-98.0); Mean Platelet Volume 6.6 fL (7.4-10.4); Platelet Count 313 thou/uL (130-400); RBC Distribution Width 12.5 % (11.5-14.5); Red Blood Cell (RBC) Count 3.68 mill/uL (4.70-6.10); White Blood Cell (WBC) Count 8.3 thou/uL (4.8-10.8)
[2018-10-18 09:07] LABS: ALT (SGPT) 16 U/L (8-55); AST (SGOT) 19 U/L (5-34); Albumin 3.5 g/dL (3.4-4.8); Alkaline Phosphatase 99 U/L (40-150); Anion Gap 14 mmol/L (10-20); BUN (Urea Nitrogen) 19 mg/dL (8.4-25.7); Bilirubin, Total 0.3 mg/dL (0.2-1.2); Calc. Creatinine Clearance 101 mL/min (70-130); Calcium 9.6 mg/dL (7.8-10.44); Carbon Dioxide 25 mmol/L (23-31); Chloride 105 mmol/L (98-107); Estimated GFR-MDRD Greater than 90; Globulin 3.4 g/dL (2.4-3.5); Glucose 115 mg/dL (80-115); Potassium 3.7 mmol/L (3.5-5.1); Protein, Total 6.9 g/dL (5.8-8.1); Sodium 140 mmol/L (136-145)
[2018-10-18] MEDS: Thiamine 100 MG TAB PO SCH (09:59)
[2018-10-18] MEDS: Nicotine 21 MG PATCH TD SCH (10:00)
[2018-10-18] MEDS: Folic Acid 1 MG TAB PO SCH (10:00)
[2018-10-18 10:05] LABS: Dilantin 10.5 ug/mL (10.0-20.0)
[2018-10-18] MEDS: Acetaminophen 325 MG TAB PO PRN (14:08)
[2018-10-19] MEDS: Thiamine 100 MG TAB PO SCH (09:26)
[2018-10-19] MEDS: Folic Acid 1 MG TAB PO SCH (09:26)
[2018-10-19] MEDS: Nicotine 21 MG PATCH TD SCH (09:26)
--- NOTE | 2018-10-19 09:53 | PRG ---
DATE OF SERVICE: 10/18/2018 SUBJECTIVE: The patient feels well with no complaints, but is confused, only oriented to person. He is eating fairly well. He is not getting out of bed. OBJECTIVE: VITAL SIGNS: Show him to have a temperature of 98, pulse 94, respirations 18, O2 sats 97% on room ai r, blood pressure 129/69. LUNGS: Clear. CARDIAC: Shows regular rhythm. ABDOMEN: Soft and nontender. LABORATORY DATA: White count is 8300, hematocrit 33, hemoglobin 11. Sodium 140, potassium 3.7, chlo ride 107, bicarbonate 25, BUN 19, creatinine 0.66, albumin up to 3.5. ASSESSMENT: 1. Wernicke encephalopathy, stable with persistent disorientation, but with no agitation. 2. Seizures secondary to Wernicke's controlled with Dilantin with most recent level today, therapeut ic at 10.5. 3. Malnutrition and deconditioning, improving daily with albumin up to 3.5. PLAN: 1. Await legal decision on guardianship and placement. 2. Continue nutrition monitoring. 3. Discuss possible attempt at more therapy with therapy, although cognitive deficits, most likely w ill prevent this.
--- NOTE | 2018-10-19 10:24 | PRG ---
DATE OF SERVICE: 10/19/2018 SUBJECTIVE: The patient feels well, lying in bed with no complaints, only oriented to person. No ag itation. He has had no further seizures. Tolerating Dilantin well. OBJECTIVE: VITAL SIGNS: Blood pressure 146/84, temperature is 98, pulse 83, respirations 18, O2 sats 97% on pamela m air. LUNGS: Clear. CARDIAC: Regular rhythm. ABDOMEN: Soft and nontender. ASSESSMENT: 1. Stable Wernicke's encephalopathy persistent disorientation, but no agitation 2. Seizure disorder secondary to Wernicke's, controlled with Dilantin with no recurrence. 3. Malnutrition, improving greatly. PLAN: Continue nutrition. Await placement. Discuss further therapy with PT.
--- NOTE | 2018-10-19 20:13 | CT ---
CT BRAIN WITHOUT IV CONTRAST: HISTORY: A 68-year-old male with a history of injury from fall. COMPARISON: 10/11/2018 FINDINGS: Atrophy and chronic white matter ischemic changes. No mass or midline shift. No acute hemorrhage. Very mild sinus mucosal congestion. IMPRESSION: Atrophy and chronic white matter ischemic changes. No mass or bleed. Stable appearance from 018. POS: RRE
--- NOTE | 2018-10-19 20:25 | CT ---
CT CERVICAL SPINE WITHOUT IV CONTRAST: HISTORY: A 68-year-old male with a history of a cervical injury following a fall. COMPARISON: 09/13/2018 FINDINGS: There is a stable circumscribed, subcutaneous soft tissue nodule on the left side, near the angle of the mandible. The mastoids are clear. There is mild sinus mucosal congestion. There is extensive d isk osteophytosis, particularly at C4, C5, C6, and C7, without evidence for acute fracture or disloca tion. IMPRESSION: Stable spondylosis. No acute fracture or dislocation. Other findings as above. POS: RRE
[2018-10-20] MEDS: Folic Acid 1 MG TAB PO SCH (08:42)
[2018-10-20] MEDS: Nicotine 21 MG PATCH TD SCH (08:42)
[2018-10-20] MEDS: Thiamine 100 MG TAB PO SCH (08:42)
[2018-10-21] MEDS: Nicotine 21 MG PATCH TD SCH (08:59)
[2018-10-21] MEDS: Thiamine 100 MG TAB PO SCH (08:59)
[2018-10-21] MEDS: Folic Acid 1 MG TAB PO SCH (08:59)
--- NOTE | 2018-10-21 18:04 | PRG ---
DATE OF SERVICE: 10/21/2018 SUBJECTIVE: The patient lying in the bed, feels well, have a sitter in place, however, because he is still on site and tends to get out of bed and has fallen with no abnormalities. He had no further s eizures. He is still very weak, but he is eating. OBJECTIVE: VITAL SIGNS: Temperature is 97.8, pulse 85, respirations 18, O2 sats 97% on room air, blood pressure 138/94. LUNGS: Clear. CARDIAC: Shows regular rhythm. NEUROLOGIC: Shows diffuse weakness, no focal findings. ABDOMEN: Soft and nontender. ASSESSMENT: 1. Wernicke encephalopathy, stable. Seizure disorder secondary to this, controlled with Dilantin wi th therapeutic levels. 2. Severe deconditioning and inability to maintain ADLs. PLAN: Await guardianship to place in a secure facility.
[2018-10-22] MEDS: Acetaminophen 325 MG TAB PO PRN ×2 (01:55→21:23)
[2018-10-22] MEDS: Folic Acid 1 MG TAB PO SCH (09:10)
[2018-10-22] MEDS: Thiamine 100 MG TAB PO SCH (09:10)
[2018-10-22] MEDS: Nicotine 21 MG PATCH TD SCH (09:10)
[2018-10-22] MEDS: cloNIDine 0.1mg/24 Hour PATCH TD SCH (17:07)
--- NOTE | 2018-10-22 17:47 | PRG ---
DATE OF SERVICE: 10/22/2018 SUBJECTIVE: The patient feels well, lying in bed, but confused and only oriented to person, in no di stress, has been unable to get out of bed because of risk of falling is requiring a sitter. OBJECTIVE: VITAL SIGNS: Shows blood pressure 144/89, temperature 98, pulse 84, respirations 18, O2 sats 96% on room air. LUNGS: Clear. CARDIAC: Shows regular rhythm. ABDOMEN : Soft, nontender. NEUROLOGIC: Showed no focal findings. ASSESSMENT: 1. Stable Wernicke's encephalopathy. 2. Stable seizure disorder, on Dilantin. 3. Deconditioning with minimal improvement. 4. Malnutrition, improving. PLAN: 1. Await guardianship. 2. Continue nutritional support. 3. Continue Dilantin for seizure disorder.
[2018-10-23] MEDS: Thiamine 100 MG TAB PO SCH (09:37)
[2018-10-23] MEDS: Nicotine 21 MG PATCH TD SCH (09:37)
[2018-10-23] MEDS: Folic Acid 1 MG TAB PO SCH (09:37)
[2018-10-24] MEDS: Thiamine 100 MG TAB PO SCH (08:48)
[2018-10-24] MEDS: Nicotine 21 MG PATCH TD SCH (08:48)
[2018-10-24] MEDS: Folic Acid 1 MG TAB PO SCH (08:48)
--- NOTE | 2018-10-24 12:17 | PRG ---
DATE OF SERVICE: 10/23/2018 SUBJECTIVE: The patient feels well. No complaints. Alert, but confused. Only oriented to person. In no distress, but unable to rise from the bed without falling. He is eating fairly well. OBJECTIVE: VITAL SIGNS: Show temperature is 97.6, pulse 79, respirations 18, O2 saturations 98% on room air, and blood pressure 116/74. LUNGS: Clear. CARDIAC: Shows regular rhythm. ABDOMEN: Soft and nontender. NEUROLOGIC: Shows no focal findings. ASSESSMENT: 1. Stable Wernicke encephalopathy with seizure disorder, controlled with Dilantin with therapeutic dilantin level of 10.5. 2. Severe deconditioning, stable. 3. Malnutrition, improving. PLAN: Await guardianship. Continue supportive care. Job ID: [id number]
[2018-10-25] MEDS: Nicotine 21 MG PATCH TD SCH (08:54)
[2018-10-25] MEDS: Thiamine 100 MG TAB PO SCH (08:54)
[2018-10-25] MEDS: Folic Acid 1 MG TAB PO SCH (08:54)
[2018-10-26 08:27] LABS: #Basophils 0.1 thou/uL (0.0-0.2); #Eosinphils 0.2 thou/uL (0.0-0.7); #Lymphocytes 1.5 thou/uL (1.20-3.40); #Monocytes 0.8 thou/uL (0.11-0.59); #Neutrophils 5.8 thou/uL (1.40-6.50); %Basophils 1.4 % (0.0-1.0); %Eosinophils 2.6 % (0.0-10.0); %Lymphocytes 17.5 % (21.0-51.0); %Monocytes 9.6 % (0.0-10.0); Hemoglobin 11.8 g/dL (14.0-18.0); Mean Corpuscular HGB CONC 32.6 g/dL (32.0-36.0); Mean Corpuscular Hemoglobin 29.7 pg (27.0-31.0); Mean Corpuscular Volume 90.9 fL (78.0-98.0); Mean Platelet Volume 6.4 fL (7.4-10.4); Platelet Count 311 thou/uL (130-400); RBC Distribution Width 12.6 % (11.5-14.5); Red Blood Cell (RBC) Count 3.97 mill/uL (4.70-6.10); White Blood Cell (WBC) Count 8.4 thou/uL (4.8-10.8)
[2018-10-26 08:39] LABS: ALT (SGPT) 20 U/L (8-55); AST (SGOT) 23 U/L (5-34); Albumin 3.9 g/dL (3.4-4.8); Alkaline Phosphatase 97 U/L (40-150); Anion Gap 15 mmol/L (10-20); BUN (Urea Nitrogen) 15 mg/dL (8.4-25.7); Bilirubin, Total 0.4 mg/dL (0.2-1.2); Calc. Creatinine Clearance 103 mL/min (70-130); Calcium 9.7 mg/dL (7.8-10.44); Carbon Dioxide 24 mmol/L (23-31); Chloride 105 mmol/L (98-107); Estimated GFR-MDRD Greater than 90; Globulin 3.3 g/dL (2.4-3.5); Glucose 108 mg/dL (80-115); Protein, Total 7.2 g/dL (5.8-8.1); Sodium 140 mmol/L (136-145)
[2018-10-26] MEDS: Thiamine 100 MG TAB PO SCH (09:07)
[2018-10-26] MEDS: Nicotine 21 MG PATCH TD SCH (09:07)
[2018-10-26] MEDS: Folic Acid 1 MG TAB PO SCH (09:07)
[2018-10-27] MEDS: Thiamine 100 MG TAB PO SCH (09:19)
[2018-10-27] MEDS: Folic Acid 1 MG TAB PO SCH (09:19)
[2018-10-27] MEDS: Nicotine 21 MG PATCH TD SCH (09:19)
--- NOTE | 2018-10-27 16:30 | PRG ---
DATE OF SERVICE: 10/27/2018 SUBJECTIVE: This patient is a 68-year-old white male, alcoholic, brought to [facility] after being found unresponsive, lying on the ground. He had hypoxic respiratory failure, aspiration pneumonia, and required intubation. His shock required significant IV fluids and shock protocol. 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 Eventually, he was stabilized and transferred to [facility] for occupational therapy and physical therapy. The patient is awake and recognizes me from 3 weeks ago. He has no complaints today and states he is doing well. OBJECTIVE: VITAL SIGNS: Today reveal blood pressure 144/89 and 131/79 last night, pulse 87 to 94, respirations 18 to 20, O2 sat 96% to 97% on room air, T-max 99.5. GENERAL: This is a well-developed, well-nourished, thin, white male, in no apparent distress at this time. HEENT: Reveals normocephalic, nontraumatic cranium. Pupils are equally round and reactive. Extraocular movements are intact. Nose and throat are slightly dry. NECK: Supple without masses, nodes, or bruits. CHEST: Clear to auscultation. No rales, rhonchi, or wheezes are heard. HEART: Reveals a regular rate and rhythm without murmurs, gallops, or rubs. ABDOMEN: Scaphoid, soft, nontender, without organomegaly. Normal bowel sounds are noted. No rebound or guarding is noted. : Deferred. EXTREMITIES: Reveal no clubbing, cyanosis, or edema. NEUROLOGIC: No focal findings are noted. The patient waxes and wanes with his cognitive deficits. ASSESSMENT: 1. Wernicke-Korsakoff encephalitis, which is stable. 2. Seizure disorder, controlled with Dilantin. 3. Severe deconditioning. 4. Malnutrition, which is improving. 5. Aspiration pneumonia, which has resolved. PLAN: 1. Continue physical therapy and occupational therapy. 2. Continue supportive care. 3. The patient will be referred to Adult Protective Services. 4. We are awaiting placement. Job ID: [id number]
[2018-10-28] MEDS: Thiamine 100 MG TAB PO SCH (09:27)
[2018-10-28] MEDS: Nicotine 21 MG PATCH TD SCH (09:27)
[2018-10-28] MEDS: Folic Acid 1 MG TAB PO SCH (09:27)
[2018-10-28] MEDS: Acetaminophen 325 MG TAB PO PRN (21:59)
--- NOTE | 2018-10-29 07:51 | PRG ---
DATE OF SERVICE: 10/27/2018 SUBJECTIVE: Mr. Eldridge is a 68-year-old white male who was a severe alcoholic, brought to [facility] after being found unresponsive, lying on the ground. He was hypoxic in respiratory failure with aspiration pneumonia, and required intubation. He required significant IV fluids and steroids, and the shock protocol. He was diagnosed with Wernicke-Korsakoff syndrome and generalized weakness. Eventually, he was stabilized and transferred to [facility] for physical therapy, occupational therapy, and placement in a nursing care facility. The patient is awake today, but continues to be delusional. He states last night he went out drinking and got drunk again. Obviously he did not. OBJECTIVE: VITAL SIGNS: Today reveal blood pressure of 156/89, pulse 72 to 92, respirations 18 to 20, O2 sat 96% to 100% on room air, and T-max 98.3. GENERAL: This is a well-developed, well-nourished white male, in no apparent distress at this time. HEENT: Reveals normocephalic and nontraumatic cranium. The pupils are equally round and reactive. Extraocular movements are intact. Nose and throat are dry. NECK: Supple without masses, nodes, or bruits. CHEST: Clear to auscultation. No rales, rhonchi, or wheezes, or cough is heard. HEART: Reveals a regular rate and rhythm without murmurs, gallops, or rubs. ABDOMEN: Scaphoid, soft, and nontender without organomegaly. Normal bowel sounds are noted in all 4 quadrants. No rebound or guarding is noted. : Exam is deferred. EXTREMITIES: Reveal no clubbing, cyanosis, or edema. NEUROLOGIC: The patient has no focal findings. The patient's orientation waxes and wanes with cognitive deficits. ASSESSMENT: 1. Wernicke-Korsakoff encephalitis, which is stable. 2. Seizure disorder, controlled with Dilantin. 3. Severe deconditioning. 4. Malnutrition, improved. 5. Aspiration pneumonia, resolved. PLAN: 1. Continue physical therapy and occupational therapy. 2. Continue supportive care. 3. The patient is awaiting placement, but they have to await for a court-appointed guardian. Job ID: [id number]
[2018-10-29] MEDS: Folic Acid 1 MG TAB PO SCH (08:42)
[2018-10-29] MEDS: Nicotine 21 MG PATCH TD SCH (08:42)
[2018-10-29] MEDS: Thiamine 100 MG TAB PO SCH (08:42)
--- NOTE | 2018-10-29 13:19 | PRG ---
DATE OF SERVICE: 10/29/2018 SUBJECTIVE: The patient feels well, lying in the bed. Alert and oriented times person only, but in no distress and confused and occasionally confabulating. OBJECTIVE: VITAL SIGNS: Temperature 96.6, pulse 87, respirations 18, O2 saturation is 97% on room air, and blood pressure 149/89. LUNGS: Clear. CARDIAC: Regular rhythm. ABDOMEN: Soft and nontender. SKIN AND EXTREMITIES: No edema, clubbing, or cyanosis. NEUROLOGIC: Intact. ASSESSMENT: 1. Stable Wernicke encephalopathy on dilantin, with most recent level subtherapeutic at 6.9 and we will repeat dose and level tomorrow. 2. Severe deconditioning and inability to maintain ADLs. PLAN: Await guardianship. Repeat dilantin level and possibly adjust dilantin and ensure that he has been given on an empty stomach. Job ID: [id number]
[2018-10-29] MEDS: cloNIDine 0.1mg/24 Hour PATCH TD SCH (19:54)
[2018-10-30] MEDS: Nicotine 21 MG PATCH TD SCH (09:19)
[2018-10-30] MEDS: Thiamine 100 MG TAB PO SCH ×2 (09:20→10:02)
[2018-10-30] MEDS: Folic Acid 1 MG TAB PO SCH ×2 (09:20→10:02)
[2018-10-30] MEDS: cloNIDine 0.1mg/24 Hour PATCH TD SCH (21:49)
[2018-10-31] MEDS: Thiamine 100 MG TAB PO SCH (09:59)
[2018-10-31] MEDS: Nicotine 21 MG PATCH TD SCH (09:59)
[2018-10-31] MEDS: Folic Acid 1 MG TAB PO SCH (09:59)
--- NOTE | 2018-10-31 12:10 | PRG ---
DATE OF SERVICE: 10/30/2018 SUBJECTIVE: The patient is lying in the bed. No distress. Eating well. Still, not getting up from the bed. States he feels that he might want to consider therapy now. OBJECTIVE: VITAL SIGNS: Temperature is 98.2, pulse 79, respirations 20, O2 saturation is 97% on room air, and blood pressure 157/86. NEUROLOGIC: Shows diffuse weakness. No focal finding. ASSESSMENT: 1. Wernicke encephalopathy, appears to be stable with only orientation x1, but with no agitation. 2. Seizure disorder secondary to the above, stable, controlled with Dilantin with subtherapeutic level of 7.6, repeated, so we will increase Dilantin dose to 200 mg twice daily and repeat level. 3. Continue to await for legal guardianship and transfer to chronic facility. Job ID: [id number]
[2018-11-01] MEDS: Acetaminophen 325 MG TAB PO PRN ×3 (02:00→19:37)
--- NOTE | 2018-11-01 08:48 | PRG ---
DATE OF SERVICE: 10/31/2018 SUBJECTIVE: The patient is awake and alert, lying on bed, in no distress, confused, but not agitated. OBJECTIVE: VITAL SIGNS: Temperature is 97.6, pulse 80, respirations 18, O2 saturations 98% on room air, and blood pressure 146/84. LUNGS: Clear. CARDIAC: Regular rhythm. ABDOMEN: Soft and nontender. Repeat Dilantin level on increased Dilantin dose of 200 twice daily, still subtherapeutic at 7.6, but no further seizures. ASSESSMENT: 1. Wernicke encephalopathy, stable. 2. Seizure disorder secondary to encephalopathy, not recurrent, but on subtherapeutic Dilantin, although recently increased Dilantin to 200 mg twice daily. PLAN: 1. Await guardianship and transfer to . 2. Repeat Dilantin level in 2 days as well as CBC and comprehensive and metabolic to ensure therapeutic range on increased dose. Job ID: [id number]
[2018-11-01] MEDS: Folic Acid 1 MG TAB PO SCH (09:20)
[2018-11-01] MEDS: Thiamine 100 MG TAB PO SCH (09:20)
[2018-11-01] MEDS: Nicotine 21 MG PATCH TD SCH (09:20)
[2018-11-02 05:26] LABS: #Basophils 0.1 thou/uL (0.0-0.2); #Eosinphils 0.3 thou/uL (0.0-0.7); #Lymphocytes 1.7 thou/uL (1.20-3.40); #Monocytes 0.9 thou/uL (0.11-0.59); #Neutrophils 7.8 thou/uL (1.40-6.50); %Basophils 1.3 % (0.0-1.0); %Eosinophils 2.4 % (0.0-10.0); %Lymphocytes 15.7 % (21.0-51.0); %Monocytes 8.6 % (0.0-10.0); Mean Corpuscular HGB CONC 31.5 g/dL (32.0-36.0); Mean Corpuscular Hemoglobin 29.1 pg (27.0-31.0); Mean Corpuscular Volume 92.5 fL (78.0-98.0); Mean Platelet Volume 6.5 fL (7.4-10.4); Platelet Count 280 thou/uL (130-400); RBC Distribution Width 12.5 % (11.5-14.5); Red Blood Cell (RBC) Count 3.77 mill/uL (4.70-6.10); White Blood Cell (WBC) Count 10.8 thou/uL (4.8-10.8)
[2018-11-02 05:45] LABS: ALT (SGPT) 18 U/L (8-55); AST (SGOT) 18 U/L (5-34); Albumin 3.6 g/dL (3.4-4.8); Alkaline Phosphatase 118 U/L (40-150); Anion Gap 13 mmol/L (10-20); BUN (Urea Nitrogen) 18 mg/dL (8.4-25.7); Bilirubin, Total 0.2 mg/dL (0.2-1.2); Calc. Creatinine Clearance 96 mL/min (70-130); Calcium 9.4 mg/dL (7.8-10.44); Carbon Dioxide 25 mmol/L (23-31); Chloride 105 mmol/L (98-107); Dilantin 7.8 ug/mL (10.0-20.0); Estimated GFR-MDRD Greater than 90; Glucose 103 mg/dL (80-115); Potassium 3.7 mmol/L (3.5-5.1); Protein, Total 6.6 g/dL (5.8-8.1); Sodium 139 mmol/L (136-145)
[2018-11-02] MEDS: Nicotine 21 MG PATCH TD SCH (09:09)
[2018-11-02] MEDS: Folic Acid 1 MG TAB PO SCH (09:09)
[2018-11-02] MEDS: Thiamine 100 MG TAB PO SCH (09:09)
[2018-11-02] MEDS: Acetaminophen 325 MG TAB PO PRN ×2 (09:18→20:55)
--- NOTE | 2018-11-02 10:28 | PRG ---
DATE OF SERVICE: 11/02/2018 SUBJECTIVE: Mr. Eldridge is doing the same. Denies any complaints. Waiting on placement. No family at bedside. OBJECTIVE: GENERAL: He is afebrile. VITAL SIGNS: Heart rate 82, respirations 18, oxygen saturation 97% on room air, and blood pressure 137/82. CARDIOVASCULAR: S1 and S2 plus. Rate and rhythm are regular. RESPIRATORY: Normal vesicular breath sounds. ABDOMEN: Soft, nontender. Bowel sounds in all quadrants. EXTREMITIES: Without cyanosis or clubbing. Peripheral pulses are palpable. CENTRAL NERVOUS SYSTEM: Cognitive deficits are present. IMPRESSION: 1. Wernicke encephalopathy. 2. Protein-calorie malnutrition. 3. Generalized weakness. PLAN: 1. Continue nutritional support. 2. DVT and stress ulcer prophylaxis. 3. Decubitus precautions. 4. Routine laboratory values. 5. Placement. 6. No family at bedside. Job ID: [id number]
[2018-11-02 22:30] LABS: Bilirubin Negative (Negative); Blood, Urine Negative (Negative); Clarity Cloudy (Clear); Glucose, Urine (Dipstick) Negative (Negative); Leukocyte Small (Negative); Nitrite Positive (Negative); Protein, Urine (Dipstick) Negative (Neg-Trace); Specific Gravity, Urine 1.015 (1.005-1.030); Urobilinogen 0.2 mg/dL (0.2-1.0)
[2018-11-02 22:35] LABS: Bacteria/HPF 1+ HPF (None Seen); RBC/HPF None Seen HPF (0-3); Squamous Epithelial 0-3 HPF (0-3)
[2018-11-03] MEDS: Thiamine 100 MG TAB PO SCH (09:53)
[2018-11-03] MEDS: Folic Acid 1 MG TAB PO SCH (09:53)
[2018-11-03] MEDS: Nicotine 21 MG PATCH TD SCH (09:53)
[2018-11-03] MEDS: Acetaminophen 325 MG TAB PO PRN ×2 (13:57→18:35)
--- NOTE | 2018-11-03 16:03 | PRG ---
DATE OF SERVICE: 11/03/2018 SUBJECTIVE: Mr. Eldridge is doing well. Denies any complaints. Remains confused. No changes. Apparently, he did have some cloudy urine, so urinalysis was done. I advised them to do a urine culture as well. OBJECTIVE: VITAL SIGNS: He is afebrile, heart rate 80, respirations 16, oxygen saturation 95% on room air, blood pressure 137/87. CARDIOVASCULAR: S1 and S2 plus. RESPIRATORY: Normal vesicular breath sounds. ABDOMEN: Soft, nontender. Bowel sounds heard in all quadrants. EXTREMITIES: Without cyanosis or clubbing. CENTRAL NERVOUS SYSTEM: Cognitive deficits. LABORATORY DATA: White count 10.8, H and H are 11 and 34. Sodium 139, potassium 3.7, BUN and creatinine are 18 and 0.7. Urinalysis shows positive nitrites, small leukocyte esterase, 7 to 10 wbc's, and 1+ bacteria. IMPRESSION: 1. Cognitive deficits due to Wernicke encephalopathy. 2. Chronic alcohol abuse. 3. Protein-calorie malnutrition. 4. Generalized weakness. PLAN: 1. Await urine culture. 2. Nutritional support. 3. DVT and stress ulcer prophylaxis. 4. Decubitus precautions. 5. Routine laboratory values. 6. Placement. Job ID: [id number]
[2018-11-04] MEDS: Acetaminophen 325 MG TAB PO PRN ×3 (05:19→16:02)
[2018-11-04] MEDS: Nicotine 21 MG PATCH TD SCH (08:49)
[2018-11-04] MEDS: Thiamine 100 MG TAB PO SCH (08:49)
[2018-11-04] MEDS: Folic Acid 1 MG TAB PO SCH (08:50)
--- NOTE | 2018-11-04 16:53 | PRG ---
DATE OF SERVICE: 11/04/2018 SUBJECTIVE: Mr. Eldridge is doing well except he is having some erythema around his left great toenail. He has significantly long toenails with the hyperkeratosis. No fever or chills. His urinalysis showing empiric Enterobacter, sensitivities are pending. OBJECTIVE: VITAL SIGNS: He is afebrile, heart rate 76, respirations 18, oxygen saturation 97% on room air, blood pressure 146/89. CARDIOVASCULAR: S1 and S2 plus. RESPIRATORY: Normal vesicular breath sounds. ABDOMEN: Soft, nontender. Bowel sounds heard in all quadrants. EXTREMITIES: Without cyanosis or clubbing. Possible ingrown toenail, left great toe versus secondary infection due to onychomycosis. IMPRESSION: 1. Cognitive deficits due to Wernicke encephalopathy and longstanding alcohol abuse. 2. Protein-calorie malnutrition. 3. Possible urinary tract infection. 4. Generalized weakness. 5. Possible secondary infection due to onychomycosis. PLAN: 1. Empiric Augmentin. 2. Await urine culture. 3. Nutritional support. 4. DVT and stress ulcer prophylaxis. 5. Decubitus precautions. 6. Toenail care as outpatient. 7. Discuss with patient and nursing in detail and all questions answered. Job ID: [id number]
[2018-11-04] MEDS: Amoxicillin/Potassium Clav 875 MG TAB PO SCH (20:27)
[2018-11-05] MEDS: Nicotine 21 MG PATCH TD SCH (08:16)
[2018-11-05] MEDS: Thiamine 100 MG TAB PO SCH (08:18)
[2018-11-05] MEDS: Amoxicillin/Potassium Clav 875 MG TAB PO SCH ×2 (08:18→20:11)
[2018-11-05] MEDS: Folic Acid 1 MG TAB PO SCH (08:18)
--- NOTE | 2018-11-05 10:15 | PRG ---
DATE OF SERVICE: 11/05/2018 SUBJECTIVE: The patient is awake and alert, in no distress, but is feeling very weak and unable to sit for more than a few minutes before asking to get back in bed. He is eating well, has not developed any bedsores, and he is turning in bed. OBJECTIVE: VITAL SIGNS: Blood pressure 161/91, temperature is 98, pulse 79, respirations 20, O2 sats 97% on room air. LUNGS: Clear. CARDIAC: Showed regular rhythm. ABDOMEN: Soft and nontender. LABORATORY DATA: Most recent Dilantin level was subtherapeutic at 7.8 and has had dose increased to 200 twice daily and we will repeat again today and ensure that patient is taking on empty stomach. ASSESSMENT AND PLAN: 1. Wernicke encephalopathy, stable with severe weakness secondary to refusal to cooperate, despite eating well. 2. 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 and ensure that Dilantin is given on empty stomach. 3. Placement problem and we will discuss with Case Management. Job ID: [id number]
[2018-11-05] MEDS: Acetaminophen 325 MG TAB PO PRN ×2 (13:03→20:11)
[2018-11-05] MEDS: cloNIDine 0.1mg/24 Hour PATCH TD SCH (18:01)
[2018-11-06] MEDS: Folic Acid 1 MG TAB PO SCH (09:12)
[2018-11-06] MEDS: Amoxicillin/Potassium Clav 875 MG TAB PO SCH (09:12)
[2018-11-06] MEDS: Thiamine 100 MG TAB PO SCH (09:12)
[2018-11-06] MEDS: Nicotine 21 MG PATCH TD SCH (09:12)
--- NOTE | 2018-11-06 20:12 | PRG ---
DATE OF SERVICE: 11/06/2018 SUBJECTIVE: The patient is sitting up in the chair, eating, in no distress, no agitation. Does appear to be stronger than suspected. He is able to sit up all day and was able to assist with transfers slightly. Nurses are asking for PT/OT consult again. OBJECTIVE: VITAL SIGNS: Also his blood pressure is stable at 130/86, temperature 97, pulse 74, respirations 20, and O2 sats 97% on room air. LUNGS: Clear. CARDIAC: Showed regular rhythm. ABDOMEN: Soft and nontender. LABORATORY DATA: Urinalysis; culture did show Klebsiella urinary tract infection, resistant to the Augmentin that he was on. ASSESSMENT: 1. Klebsiella urinary tract infection. We will start on Bactrim DS twice daily. 2. Deconditioning. We will start on PT/OT again and monitor. 3. Wernicke encephalopathy, stable with no agitation. 4. Seizure disorder secondary to Wernicke's, stable on Dilantin, and we will continue. Job ID: [id number]
[2018-11-06] MEDS: Acetaminophen 325 MG TAB PO PRN (20:16)
[2018-11-06] MEDS: Sulfameth/Trimethoprim DS 800-160mg TAB PO SCH (20:16)
[2018-11-07] MEDS: Nicotine 21 MG PATCH TD SCH (09:18)
[2018-11-07] MEDS: Sulfameth/Trimethoprim DS 800-160mg TAB PO SCH ×2 (09:18→20:58)
[2018-11-07] MEDS: Folic Acid 1 MG TAB PO SCH (09:18)
[2018-11-07] MEDS: Thiamine 100 MG TAB PO SCH (09:18)
--- NOTE | 2018-11-07 19:08 | PRG ---
DATE OF SERVICE: 11/07/2018 SUBJECTIVE: The patient is sitting up in the bed. States he is refusing therapy, but did walk to the bathroom with assistance of sitter. OBJECTIVE: VITAL SIGNS: Temperature 99.7, pulse 93, respirations 18, O2 saturation is 100% on room air, and blood pressure 130/78. Most recent Dilantin level therapeutic at 12.4. LUNGS: Clear. CARDIAC: Showed regular rhythm. NEUROLOGICAL: No focal findings. ASSESSMENT: 1. Stable Wernicke's encephalopathy. 2. Seizure disorder, controlled with Dilantin. 3. Severe deconditioning with refusal of cooperation with therapy. 4. Nutrition, improving. PLAN: Await guardianship and transfer to a long-term facility. Job ID: [id number]
[2018-11-08 05:45] LABS: #Basophils 0.1 thou/uL (0.0-0.2); #Eosinphils 0.5 thou/uL (0.0-0.7); #Lymphocytes 1.7 thou/uL (1.20-3.40); #Neutrophils 5.6 thou/uL (1.40-6.50); %Basophils 1.5 % (0.0-1.0); %Eosinophils 5.1 % (0.0-10.0); %Lymphocytes 19.4 % (21.0-51.0); %Monocytes 11.6 % (0.0-10.0); %Neutrophils 62.4 % (42.0-75.0); Hemoglobin 11.5 g/dL (14.0-18.0); Mean Corpuscular HGB CONC 31.8 g/dL (32.0-36.0); Mean Corpuscular Hemoglobin 29.1 pg (27.0-31.0); Mean Corpuscular Volume 91.5 fL (78.0-98.0); Mean Platelet Volume 6.3 fL (7.4-10.4); Platelet Count 261 thou/uL (130-400); RBC Distribution Width 12.4 % (11.5-14.5); Red Blood Cell (RBC) Count 3.94 mill/uL (4.70-6.10)
[2018-11-08 05:48] LABS: Dilantin 12.5 ug/mL (10.0-20.0)
[2018-11-08 05:57] LABS: ALT (SGPT) 16 U/L (8-55); AST (SGOT) 17 U/L (5-34); Albumin 3.6 g/dL (3.4-4.8); Alkaline Phosphatase 99 U/L (40-150); Anion Gap 12 mmol/L (10-20); BUN (Urea Nitrogen) 12 mg/dL (8.4-25.7); Bilirubin, Total 0.2 mg/dL (0.2-1.2); Calc. Creatinine Clearance 98 mL/min (70-130); Calcium 9.4 mg/dL (7.8-10.44); Carbon Dioxide 23 mmol/L (23-31); Chloride 104 mmol/L (98-107); Estimated GFR-MDRD Greater than 90; Globulin 2.9 g/dL (2.4-3.5); Glucose 101 mg/dL (80-115); Potassium 3.5 mmol/L (3.5-5.1); Protein, Total 6.5 g/dL (5.8-8.1); Sodium 135 mmol/L (136-145)
[2018-11-08] MEDS: Folic Acid 1 MG TAB PO SCH (08:38)
[2018-11-08] MEDS: Sulfameth/Trimethoprim DS 800-160mg TAB PO SCH ×2 (08:38→20:40)
[2018-11-08] MEDS: Thiamine 100 MG TAB PO SCH (08:38)
[2018-11-08] MEDS: Nicotine 21 MG PATCH TD SCH (08:38)
[2018-11-08] MEDS: Acetaminophen 325 MG TAB PO PRN (15:24)
--- NOTE | 2018-11-08 18:40 | PRG ---
DATE OF SERVICE: 11/08/2018 SUBJECTIVE: The patient feels well, lying in bed, but refused to cooperate with therapy and get out of bed. He is eating well, but is doing nothing else. LABORATORY DATA: White count 9000, hematocrit 36, and hemoglobin 11. Sodium 135, potassium 3.5, chloride 104, bicarbonate 23, BUN 12, creatinine 0.72, and albumin 3.6. Dilantin level 12.5. OBJECTIVE: LUNGS: Clear. CARDIAC: Showed regular rhythm. ABDOMEN: Soft and nontender. ASSESSMENT: 1. Stable Wernicke encephalopathy, in no distress, but refusal to cooperate physical therapy. 2. Seizure disorder. Controlled with Dilantin with therapeutic levels. 3. Malnutrition and deconditioning, improved malnutrition but refusal of conditioning secondary to encephalopathy. PLAN: Consider transfer to retirement as soon as guardianship can be arranged. Job ID: [id number]
--- NOTE | 2018-11-09 09:21 | PRG ---
DATE OF SERVICE: 11/09/2018 SUBJECTIVE: The patient feels well, was lying in bed and refused to cooperate with therapy, although he is strong enough to transfer and sit by himself. OBJECTIVE: VITAL SIGNS: Blood pressure 152/73, temperature is 97, pulse 77, respirations 20, and O2 sats 97% on room air. LUNGS: Clear. CARDIAC: Regular rhythm. ABDOMEN: Soft and nontender. NEUROLOGIC: No focal findings. ASSESSMENT: 1. Wernicke encephalopathy, stable, with refusal to cooperate with PT and noncompliance. 2. Seizure disorder secondary to Wernicke, stable on Dilantin, no recurrence. 3. Severe deconditioning, improved, but still unable to maintain ADLs. PLAN: 1. Continue Dilantin and monitor procedures. 2. Continue nutritional support. 3. I discussed discharge planning with Case Management. Job ID: [id number]
[2018-11-09] MEDS: Folic Acid 1 MG TAB PO SCH (09:52)
[2018-11-09] MEDS: Sulfameth/Trimethoprim DS 800-160mg TAB PO SCH ×2 (09:52→21:21)
[2018-11-09] MEDS: Nicotine 21 MG PATCH TD SCH (09:52)
[2018-11-09] MEDS: Thiamine 100 MG TAB PO SCH (09:52)
[2018-11-09] MEDS: Acetaminophen 325 MG TAB PO PRN (14:35)
[2018-11-10] MEDS: Sulfameth/Trimethoprim DS 800-160mg TAB PO SCH ×2 (08:54→20:45)
[2018-11-10] MEDS: Thiamine 100 MG TAB PO SCH (08:56)
[2018-11-10] MEDS: Folic Acid 1 MG TAB PO SCH (08:56)
[2018-11-10] MEDS: Nicotine 21 MG PATCH TD SCH (09:05)
[2018-11-10] MEDS: Acetaminophen 325 MG TAB PO PRN (13:31)
--- NOTE | 2018-11-11 07:46 | PRG ---
DATE OF SERVICE: 11/10/2018 SUBJECTIVE: The patient is a 68-year-old white male with a history of Wernicke encephalopathy and recurrent seizures secondary to alcohol abuse, who has been stable for the last several weeks with no further seizures on Dilantin therapy and is awaiting placement and legal guardianship. He is refusing physical therapy, although he is getting stronger, is eating better with increasing serum albumin to 3.6, stable CBC, stable renal function, and a therapeutic Dilantin level of 12.5. OBJECTIVE: VITAL SIGNS: At this time show temperature 98, pulse 87, respirations 18, O2 sats 97% on room air, and blood pressure 136/86. LUNGS: Clear. CARDIAC: Showed regular rhythm. ABDOMEN: Soft and nontender. SKIN/EXTREMITIES: No edema, clubbing, or cyanosis. Increasing strength. PSYCHIATRIC: The patient is still refusing all therapy and occasionally agitated, but he is eating well and does assist with ADLs occasionally. ASSESSMENT: 1. Wernicke encephalopathy, stable. 2. Seizure disorder, controlled with Dilantin. 3. Deconditioning, minimally improved, secondary to noncompliance with therapy. PLAN: 1. Continue PT/OT. 2. Await group home placement. Job ID: [id number]
--- NOTE | 2018-11-11 09:03 | PRG ---
DATE OF SERVICE: 11/11/2018 SUBJECTIVE: The patient is sleeping, but awakens easily. No distress. No agitation. No complaints, but refuses to get out of bed. OBJECTIVE: VITAL SIGNS: Show temperature 97, pulse 92, respirations 18, O2 sats 99% on room air, and blood pressure 134/88. LUNGS: Clear. CARDIAC: Showed regular rhythm. ABDOMEN: Soft and nontender. SKIN/EXTREMITIES: Showed no edema, clubbing, or cyanosis. ASSESSMENT: 1. Seizure disorder, controlled on Dilantin with therapeutic level. 2. Wernicke encephalopathy, stable with occasional agitation and refusal to cooperate with therapy, but otherwise, no significant hallucinations or confabulation. PLAN: Continue nutritional support. Await intermediate placement once guardianship is obtained. Job ID: [id number]
[2018-11-11] MEDS: Sulfameth/Trimethoprim DS 800-160mg TAB PO SCH ×2 (09:34→20:41)
[2018-11-11] MEDS: Folic Acid 1 MG TAB PO SCH (09:34)
[2018-11-11] MEDS: Nicotine 21 MG PATCH TD SCH (09:35)
[2018-11-11] MEDS: Thiamine 100 MG TAB PO SCH (09:35)
[2018-11-12] MEDS: Sulfameth/Trimethoprim DS 800-160mg TAB PO SCH ×2 (09:30→20:47)
[2018-11-12] MEDS: Folic Acid 1 MG TAB PO SCH (09:30)
[2018-11-12] MEDS: Nicotine 21 MG PATCH TD SCH (09:30)
[2018-11-12] MEDS: Thiamine 100 MG TAB PO SCH (09:30)
--- NOTE | 2018-11-12 09:39 | PRG ---
DATE OF SERVICE: 11/12/2018 SUBJECTIVE: The patient feels well, but refused to do therapy. Still eating well, but pretty much is in the chair and in the bed at all times. He becomes slightly agitated once asked to do more. OBJECTIVE: VITAL SIGNS: Show temperature 97, pulse 88, respirations 20, O2 saturations 99% on room air, blood pressure 127/78. LUNGS: Clear. CARDIAC: Shows regular rhythm. ABDOMEN: Soft and nontender. LABORATORY DATA: Dilantin level is stable at 12.5. ASSESSMENT: 1. Stable Wernicke encephalopathy with refusal of compliance to physical therapy and occupational therapy. 2. 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 PLAN: Await placement after guardianship legally acquired. Job ID: [id number]
[2018-11-12] MEDS: cloNIDine 0.1mg/24 Hour PATCH TD SCH (18:00)
[2018-11-13] MEDS: Thiamine 100 MG TAB PO SCH (09:22)
[2018-11-13] MEDS: Folic Acid 1 MG TAB PO SCH (09:23)
[2018-11-13] MEDS: Sulfameth/Trimethoprim DS 800-160mg TAB PO SCH ×2 (09:23→20:22)
[2018-11-13] MEDS: Nicotine 21 MG PATCH TD SCH (09:23)
[2018-11-14] MEDS: Thiamine 100 MG TAB PO SCH (08:13)
[2018-11-14] MEDS: Sulfameth/Trimethoprim DS 800-160mg TAB PO SCH ×2 (08:13→20:02)
[2018-11-14] MEDS: Folic Acid 1 MG TAB PO SCH (08:13)
[2018-11-14] MEDS: Nicotine 21 MG PATCH TD SCH (08:13)
[2018-11-14] MEDS: Acetaminophen 325 MG TAB PO PRN ×3 (11:46→20:02)
--- NOTE | 2018-11-14 18:09 | PRG ---
DATE OF SERVICE: 11/14/2018 SUBJECTIVE: The patient feels well but he recently just had a probable absence seizure. Has been eating well, but has not been cooperating with therapy. . He has been taking his medications. OBJECTIVE: VITAL SIGNS: Shows temperature 97.8, pulse 80, respirations 20, O2 sats 97%, and blood pressure 126/79. LUNGS: Clear. CARDIAC: Regular rhythm. ABDOMEN: Soft and nontender. NEUROLOGICAL: Intact. LABORATORY DATA: Laboratory showed most recent Dilantin level was 12.5 one week ago. ASSESSMENT: 1. Wernicke encephalopathy, stable with confusion with no agitation. 2. 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 Job ID: [id number]
[2018-11-15] MEDS: Acetaminophen 325 MG TAB PO PRN ×3 (02:09→21:29)
[2018-11-15] MEDS: Sulfameth/Trimethoprim DS 800-160mg TAB PO SCH ×2 (08:32→20:58)
[2018-11-15] MEDS: Folic Acid 1 MG TAB PO SCH (08:33)
[2018-11-15] MEDS: Thiamine 100 MG TAB PO SCH (08:33)
[2018-11-15] MEDS: Nicotine 21 MG PATCH TD SCH (08:33)
[2018-11-16] MEDS: Sulfameth/Trimethoprim DS 800-160mg TAB PO SCH ×2 (09:25→20:36)
[2018-11-16] MEDS: Thiamine 100 MG TAB PO SCH (09:25)
[2018-11-16] MEDS: Folic Acid 1 MG TAB PO SCH (09:25)
[2018-11-16] MEDS: Nicotine 21 MG PATCH TD SCH (09:25)
[2018-11-16] MEDS: Acetaminophen 325 MG TAB PO PRN (20:36)
[2018-11-17] MEDS: Thiamine 100 MG TAB PO SCH (09:04)
[2018-11-17] MEDS: Folic Acid 1 MG TAB PO SCH (09:04)
[2018-11-17] MEDS: Nicotine 21 MG PATCH TD SCH (09:04)
[2018-11-17] MEDS: Sulfameth/Trimethoprim DS 800-160mg TAB PO SCH ×2 (09:04→20:40)
[2018-11-17] MEDS: Acetaminophen 325 MG TAB PO PRN ×2 (09:08→20:39)
--- NOTE | 2018-11-17 17:04 | PRG ---
DATE OF SERVICE: 11/17/2018 SUBJECTIVE: Mr. Eldridge is complaining of some sinus congestion. No fever or chills. No chest pain or shortness of breath. OBJECTIVE: VITAL SIGNS: He is afebrile. Heart rate is 73, respirations 18, oxygen saturation 99% on room air, and blood pressure 126/82. CARDIOVASCULAR: S1, S2 plus. RESPIRATORY: Normal vesicular breath sounds. ABDOMEN: Soft, nontender. Bowel sounds heard in all quadrants. EXTREMITIES: Without cyanosis or clubbing. Peripheral pulses are palpable. IMPRESSION: 1. Alcoholic encephalopathy. 2. Possible allergic rhinitis. 3. Deconditioning. 4. Improving malnutrition. PLAN: 1. Continue current medications. 2. Nutritional support. 3. DVT and stress ulcer prophylaxis. 4. Decubitus precautions. 5. Claritin 10 mg daily. 6. Discussed with the patient, caregiver, and nursing in detail. Job ID: [id number]
[2018-11-17] MEDS: Loratadine 10 MG TAB PO PRN (17:19)
[2018-11-18] MEDS: Folic Acid 1 MG TAB PO SCH (09:07)
[2018-11-18] MEDS: Sulfameth/Trimethoprim DS 800-160mg TAB PO SCH ×2 (09:07→20:31)
[2018-11-18] MEDS: Thiamine 100 MG TAB PO SCH (09:07)
[2018-11-18] MEDS: Nicotine 21 MG PATCH TD SCH (09:07)
[2018-11-18] MEDS: Loratadine 10 MG TAB PO PRN (14:13)
--- NOTE | 2018-11-18 17:08 | PRG ---
DATE OF SERVICE: 11/18/2018 SUBJECTIVE: Mr. Eldridge is doing the same. Claritin seem to help a little with his sinus congestion. Denies any other concerns or questions. No family at bedside. Awaiting placement. OBJECTIVE: VITAL SIGNS: He is afebrile. Heart rate 88, respirations 18, oxygen saturation 98% on room air, and blood pressure 124/81. CARDIOVASCULAR: S1, S2 plus. RESPIRATORY: Normal vesicular breath sounds. ABDOMEN: Soft, nontender. Bowel sounds heard in all quadrants. EXTREMITIES: Without cyanosis or clubbing. CENTRAL NERVOUS SYSTEM: Encephalopathy and generalized weakness. IMPRESSION: 1. Alcoholic encephalopathy. 2. Allergic rhinitis/sinusitis. 3. Deconditioning. 4. Improving malnutrition. PLAN: 1. Continue Claritin and other current medications. 2. Nutritional support. 3. DVT and stress ulcer prophylaxis. 4. Decubitus precautions. 5. Routine laboratory values. 6. Placement. Job ID: [id number]
[2018-11-18] MEDS: Acetaminophen 325 MG TAB PO PRN (20:31)
[2018-11-19] MEDS: Acetaminophen 325 MG TAB PO PRN ×2 (05:16→20:20)
[2018-11-19] MEDS: Sulfameth/Trimethoprim DS 800-160mg TAB PO SCH (09:01)
[2018-11-19] MEDS: Folic Acid 1 MG TAB PO SCH (09:01)
[2018-11-19] MEDS: Thiamine 100 MG TAB PO SCH (09:01)
[2018-11-19] MEDS: Nicotine 21 MG PATCH TD SCH (09:01)
--- NOTE | 2018-11-19 15:42 | PRG ---
DATE OF SERVICE: 11/19/2018 SUBJECTIVE: Mr. Eldridge is resting in bed. Denies any complaints. Caregiver/sitter is in the room. His sinuses are much improved with Claritin. No concerns or questions. OBJECTIVE: VITAL SIGNS: He is afebrile, heart rate is 92, respirations 18, oxygen saturation 98% on room air, and blood pressure 137/71. CARDIOVASCULAR: S1 and S2 plus. RESPIRATORY: Normal vesicular breath sounds. ABDOMEN: Soft and nontender. Bowel sounds heard in all quadrants. EXTREMITIES: Without cyanosis or clubbing. CENTRAL NERVOUS SYSTEM: Cognitive deficits and generalized weakness. IMPRESSION: 1. Alcoholic encephalopathy. 2. Improving protein-calorie malnutrition. 3. Allergic sinusitis. PLAN: 1. Continue current medications. 2. Nutritional support. 3. DVT and stress ulcer prophylaxis. 4. Decubitus precautions. 5. Discharge planning. Job ID: [id number]
[2018-11-19] MEDS: cloNIDine 0.1mg/24 Hour PATCH TD SCH (17:09)
[2018-11-19] MEDS: Loratadine 10 MG TAB PO PRN (18:06)
[2018-11-20] MEDS: Thiamine 100 MG TAB PO SCH (08:58)
[2018-11-20] MEDS: Nicotine 21 MG PATCH TD SCH (08:58)
[2018-11-20] MEDS: Folic Acid 1 MG TAB PO SCH (08:58)
[2018-11-20] MEDS: Loratadine 10 MG TAB PO PRN (14:24)
[2018-11-20] MEDS: Acetaminophen 325 MG TAB PO PRN (20:38)
[2018-11-21] MEDS: Nicotine 21 MG PATCH TD SCH (09:04)
[2018-11-21] MEDS: Folic Acid 1 MG TAB PO SCH (09:04)
[2018-11-21] MEDS: Thiamine 100 MG TAB PO SCH (09:04)
--- NOTE | 2018-11-21 18:05 | PRG ---
DATE OF SERVICE: 11/15/2018 SUBJECTIVE: The patient is lying in bed, resting well with no complaints. OBJECTIVE: LUNGS: Lungs are clear. CARDIAC: Showed regular rhythm. ABDOMEN: Soft and nontender. ASSESSMENT: 1. Persistent Wernicke encephalopathy with orientation x1, mild confusion, and no behavioral disturbances. 2. Seizure disorder. Controlled on Dilantin with a therapeutic level of 16.6. PLAN: 1. Continue seizure treatment with Dilantin. 2. Continue stress ulcer and DVT prophylaxis. 3. Attempt to obtain placement when guardianship was obtained. Job ID: [id number]
[2018-11-21] MEDS: Acetaminophen 325 MG TAB PO PRN (23:13)
[2018-11-22] MEDS: Thiamine 100 MG TAB PO SCH (08:53)
[2018-11-22] MEDS: Nicotine 21 MG PATCH TD SCH (08:53)
[2018-11-22] MEDS: Folic Acid 1 MG TAB PO SCH (08:53)
[2018-11-22] MEDS: Loratadine 10 MG TAB PO PRN (12:21)
--- NOTE | 2018-11-22 13:34 | PRG ---
DATE OF SERVICE: 11/16/2018 SUBJECTIVE: The patient lying in the bed, resting well, alert and oriented to person, but not agitated. OBJECTIVE: LUNGS: Clear. CARDIAC: Shows regular rhythm. ABDOMEN: Soft and nontender. VITAL SIGNS: Temperature is 98.2, pulse 72, respirations 20, O2 saturations 100% on room air, blood pressure 140/86. ASSESSMENT: 1. Stable Wernicke encephalopathy. No agitation. 2. Seizure disorder secondary to Wernicke's, controlled. 3. Deconditioning, stable. 4. Malnutrition, resolved. PLAN: Await placement. Continue supportive care. Job ID: [id number]
[2018-11-22] MEDS: Acetaminophen 325 MG TAB PO PRN (20:43)
[2018-11-23] MEDS: Nicotine 21 MG PATCH TD SCH (09:20)
[2018-11-23] MEDS: Thiamine 100 MG TAB PO SCH (09:20)
[2018-11-23] MEDS: Folic Acid 1 MG TAB PO SCH (09:20)
[2018-11-23] MEDS: Acetaminophen 325 MG TAB PO PRN (20:40)
[2018-11-24] MEDS: Nicotine 21 MG PATCH TD SCH (09:23)
[2018-11-24] MEDS: Folic Acid 1 MG TAB PO SCH (09:23)
[2018-11-24] MEDS: Thiamine 100 MG TAB PO SCH (09:23)
[2018-11-25] MEDS: Acetaminophen 325 MG TAB PO PRN ×3 (00:21→23:29)
[2018-11-25] MEDS: Folic Acid 1 MG TAB PO SCH (09:12)
[2018-11-25] MEDS: Thiamine 100 MG TAB PO SCH (09:12)
[2018-11-25] MEDS: Nicotine 21 MG PATCH TD SCH (09:12)
[2018-11-26] MEDS: Nicotine 21 MG PATCH TD SCH (08:37)
[2018-11-26] MEDS: Thiamine 100 MG TAB PO SCH (08:37)
[2018-11-26] MEDS: Folic Acid 1 MG TAB PO SCH (08:37)
[2018-11-26] MEDS: cloNIDine 0.1mg/24 Hour PATCH TD SCH (17:13)
[2018-11-26] MEDS ORDERED: Ibuprofen 400 MG TAB PO PRN (21:48)
[2018-11-26] MEDS: Ibuprofen 200 MG TAB PO PRN (23:13)
[2018-11-26] MEDS: Melatonin 3 MG TAB PO PRN (23:13)
[2018-11-27] MEDS: Folic Acid 1 MG TAB PO SCH (09:29)
[2018-11-27] MEDS: Thiamine 100 MG TAB PO SCH (09:29)
[2018-11-27] MEDS: Nicotine 21 MG PATCH TD SCH (09:29)
[2018-11-27] MEDS: Melatonin 3 MG TAB PO PRN (20:55)
[2018-11-27] MEDS: Ibuprofen 200 MG TAB PO PRN (20:56)
--- NOTE | 2018-11-27 21:07 | PRG ---
DATE OF SERVICE: 11/27/2018 SUBJECTIVE: The patient is lying in bed, resting. No complaints. Awake, alert, but totally confused, only oriented to person, in no distress and not agitated. OBJECTIVE: VITAL SIGNS: Shows temperature 98.9, pulse 76, respirations 16, O2 sats 98% on room air, and blood pressure 116/77. LUNGS: Clear. CARDIAC: Regular rhythm. ABDOMEN: Soft and nontender. ASSESSMENT: 1. Wernicke encephalopathy, stable. 2. Seizure disorder secondary to above, controlled on Dilantin. 3. Deconditioning with refusal to cooperate with physical therapy. PLAN: Await legal guardianship and transfer to a non-skilled facility. Job ID: [id number]
[2018-11-28] MEDS: Folic Acid 1 MG TAB PO SCH (09:23)
[2018-11-28] MEDS: Nicotine 21 MG PATCH TD SCH (09:23)
[2018-11-28] MEDS: Thiamine 100 MG TAB PO SCH (09:23)
[2018-11-28] MEDS: Melatonin 3 MG TAB PO PRN (20:16)
[2018-11-28] MEDS: Ibuprofen 200 MG TAB PO PRN (20:16)
[2018-11-29] MEDS: Thiamine 100 MG TAB PO SCH (09:49)
[2018-11-29] MEDS: Folic Acid 1 MG TAB PO SCH (09:49)
[2018-11-29] MEDS: Nicotine 21 MG PATCH TD SCH (09:49)
[2018-11-29] MEDS: Loratadine 10 MG TAB PO PRN (09:55)
[2018-11-29] MEDS: Melatonin 3 MG TAB PO PRN (20:22)
[2018-11-29] MEDS: Ibuprofen 200 MG TAB PO PRN (20:22)
[2018-11-30] MEDS: Folic Acid 1 MG TAB PO SCH (08:37)
[2018-11-30] MEDS: Nicotine 21 MG PATCH TD SCH (08:38)
[2018-11-30] MEDS: Thiamine 100 MG TAB PO SCH (08:39)
[2018-11-30] MEDS: Ibuprofen 200 MG TAB PO PRN (20:09)
[2018-11-30] MEDS: Melatonin 3 MG TAB PO PRN (20:09)
[2018-11-30] MEDS: Loratadine 10 MG TAB PO PRN (20:22)
[2018-12-01] MEDS: Thiamine 100 MG TAB PO SCH (08:50)
[2018-12-01] MEDS: Folic Acid 1 MG TAB PO SCH (08:50)
[2018-12-01] MEDS: Nicotine 21 MG PATCH TD SCH (08:52)
--- NOTE | 2018-12-01 09:29 | PRG ---
DATE OF SERVICE: 12/01/2018 SUBJECTIVE: Mr. Eldridge is a 68-year-old white male with severe alcoholic Wernicke's encephalitis. He was admitted to [facility] for physical therapy and occupational therapy. We have had difficulty finding placement for him. He remains here with a sitter and their placement will be done. This morning, the patient states he is doing well, although his sitter states he has some sinus drainage. OBJECTIVE: VITAL SIGNS: Today, reveal blood pressure 126/81, pulse 75 to 83, respirations 18, O2 saturation 97% to 98% on room air, T-max 98.7. GENERAL: This is a well-developed, well-nourished, thin white male, in no apparent distress at this time. HEENT: Reveals normocephalic, nontraumatic cranium. Pupils are equally round and reactive. Extraocular movements are intact. Nose and throat are moist. The patient has no frontal sinus tenderness or maxillary sinus tenderness. NECK: Supple without masses, nodes, or bruits. CHEST: Clear to auscultation. No rales, rhonchi, wheezes, or cough is heard. HEART: Reveals a regular rate and rhythm without murmurs, gallops, or rubs. ABDOMEN: Scaphoid, soft, nontender without organomegaly. Normal bowel sounds are noted in all 4 quadrants. The patient has no rebound or guarding. : Exam is deferred. EXTREMITIES: Revealed no clubbing, cyanosis, or edema. NEUROLOGIC: The patient has no focal findings. He is oriented to person today. He does have Wernicke's encephalopathy. ASSESSMENT: 1. Wernicke-Korsakoff encephalopathy. 2. Seizure disorder, controlled with Dilantin. 3. Severe deconditioning. 4. Aspiration pneumonia, resolved. 5. Malnutrition. PLAN: 1. Continue supportive care. 2. Continue physical therapy and occupational therapy. 3. Awaiting placement. Job ID: [id number]
[2018-12-01] MEDS: Loratadine 10 MG TAB PO PRN (11:50)
[2018-12-01] MEDS: Melatonin 3 MG TAB PO PRN (20:07)
[2018-12-01] MEDS: Ibuprofen 200 MG TAB PO PRN (23:15)
--- NOTE | 2018-12-02 08:46 | PRG ---
DATE OF SERVICE: 12/02/2018 SUBJECTIVE: This patient is a 68-year-old white male with severe alcoholic Wernicke's encephalopathy. He is admitted to [facility] for PT and OT. Unfortunately, the patient has not been able to be placed for discharge from the hospital. He continues to have to have a sitter and placement is still in process. The patient is sleeping this morning and really sleeping well. His sitter states that after 3 o'clock until about 9 o'clock, he is difficult to arouse, so will just let him sleep. OBJECTIVE: VITAL SIGNS: Today, reveal blood pressure 163/82, pulse 67 to 71, respirations 16 to 20, O2 saturation 96% to 98% on room air. T-max 97.3. GENERAL: This is a well-developed, well-nourished, thin white male in no apparent distress at this time. HEENT: Reveals normocephalic, nontraumatic cranium. Pupils are equally round and reactive. Extraocular movements are intact. Nose and throat are slightly dry. NECK: Supple without masses, nodes or bruits. CHEST: Clear to auscultation. No rales, rhonchi, wheezes, or cough is heard. HEART: Reveals a regular rate and rhythm without murmurs, gallops, or rubs. ABDOMEN: Scaphoid, soft, nontender without organomegaly. Normal bowel sounds are noted in all four quadrants. No rebound or guarding is noted. : Exam is deferred. EXTREMITIES: Reveal no clubbing, cyanosis, or edema. ASSESSMENT: 1. Wernicke-Korsakoff encephalopathy. 2. Seizure disorder, controlled well with Dilantin. 3. Severe deconditioning. 4. Resolved aspiration pneumonia, but still at risk. 5. Malnutrition. PLAN: 1. Continue PT and OT. 2. Continue supportive care. 3. Awaiting placement. Job ID: [id number] [facility]
[2018-12-02] MEDS: Nicotine 21 MG PATCH TD SCH (08:47)
[2018-12-02] MEDS: Thiamine 100 MG TAB PO SCH (08:47)
[2018-12-02] MEDS: Folic Acid 1 MG TAB PO SCH (08:47)
[2018-12-02] MEDS: Acetaminophen 325 MG TAB PO PRN (14:14)
[2018-12-02] MEDS: Melatonin 3 MG TAB PO PRN (20:51)
[2018-12-03] MEDS: Thiamine 100 MG TAB PO SCH (09:13)
[2018-12-03] MEDS: Folic Acid 1 MG TAB PO SCH (09:13)
[2018-12-03] MEDS: Nicotine 21 MG PATCH TD SCH (09:13)
[2018-12-03] MEDS: Loratadine 10 MG TAB PO PRN (09:13)
[2018-12-03] MEDS: Ibuprofen 200 MG TAB PO PRN ×2 (13:55→21:00)
[2018-12-03] MEDS: cloNIDine 0.1mg/24 Hour PATCH TD SCH (17:05)
--- NOTE | 2018-12-03 19:02 | PRG ---
DATE OF SERVICE: 11/29/2018 SUBJECTIVE: The patient feels well, no complaints. Lying in the bed. Refusing to get up and do therapy. Occasionally, sitting in the chair. OBJECTIVE: VITAL SIGNS: Showed blood pressure is 128/70, temperature is 95, pulse 69, respirations 18, and O2 saturations 96% on room air. LUNGS: Clear. CARDIAC: Showed regular rhythm. ABDOMEN: Soft and nontender. SKIN AND EXTREMITIES: No edema, clubbing, or cyanosis. ASSESSMENT: 1. Stable Wernicke encephalopathy. 2. Improving nutrition. 3. Persistent deconditioning secondary to refusal to cooperate. 4. Seizure disorder, controlled with Dilantin. Job ID: [id number]
--- NOTE | 2018-12-03 19:49 | PRG ---
DATE OF SERVICE: 11/28/2018 SUBJECTIVE: The patient is awake and alert, in no distress, cooperating minimally with nurses, but is eating well with no complaints. OBJECTIVE: VITAL SIGNS: Temperature is 98, pulse 79, respirations 18, O2 sats 98% on room air, blood pressure 124/73. LUNGS: Clear. CARDIAC: Regular rhythm. ABDOMEN: Soft and nontender. ASSESSMENT: 1. Stable Wernicke encephalopathy. 2. Stable seizure disorder, on Dilantin. 3. Significant weakness with refusal to cooperate with therapy. 4. Improving malnutrition with increasing albumin. PLAN: Continue PT/OT as tolerated and is agreeable. Await placement to a facility when guardianship is obtained. Job ID: [id number]
--- NOTE | 2018-12-03 19:52 | PRG ---
DATE OF SERVICE: 11/30/2018 SUBJECTIVE: The patient is awake and alert, but in no distress. Confused. Not agitated, but not cooperating with therapy and nurses. OBJECTIVE: VITAL SIGNS: Blood pressure 164/84, temperature 98.5, pulse 67, respirations 18, O2 sats 98% on room air. LUNGS: Clear. CARDIAC: Regular rhythm. ABDOMEN: Soft and nontender. SKIN/EXTREMITIES: No edema, clubbing, or cyanosis. ASSESSMENT: 1. Stable Wernicke encephalopathy. 2. Stable seizure disorder. 3. Improving nutrition. 4. Persistent deconditioning secondary to noncompliance. PLAN: Continue to await for guardianship and placement in a facility. Repeat labs next week to determine stability of electrolytes, CBC, and anticonvulsive therapy. Job ID: [id number]
--- NOTE | 2018-12-03 20:01 | PRG ---
DATE OF SERVICE: 12/03/2018 SUBJECTIVE: The patient feels well, in no distress, but no change in his cooperation. He is eating well. Still not getting out of bed. OBJECTIVE: VITAL SIGNS: Temperature 96.5, pulse 68, respirations 18, O2 sats 98% on room air, blood pressure 132/86. LUNGS: Clear. CARDIAC: Regular rhythm. ABDOMEN: Soft and nontender. SKIN/EXTREMITIES: No edema. NEUROLOGICAL: No focal findings. ASSESSMENT: 1. Stable Wernicke encephalopathy. 2. Stable seizure disorder, on Dilantin. 3. Improved nutrition. 4. Persistent deconditioning. PLAN: Await placement and guardianship. Job ID: [id number]
[2018-12-03] MEDS: Melatonin 3 MG TAB PO PRN (21:00)
[2018-12-04 05:30] LABS: #Basophils 0.1 thou/uL (0.0-0.2); #Eosinphils 0.5 thou/uL (0.0-0.7); #Lymphocytes 1.7 thou/uL (1.20-3.40); #Monocytes 0.9 thou/uL (0.11-0.59); #Neutrophils 4.4 thou/uL (1.40-6.50); %Basophils 0.8 % (0.0-1.0); %Lymphocytes 22.6 % (21.0-51.0); %Monocytes 11.7 % (0.0-10.0); %Neutrophils 57.9 % (42.0-75.0); Hemoglobin 11.4 g/dL (14.0-18.0); Mean Corpuscular Hemoglobin 29.5 pg (27.0-31.0); Mean Corpuscular Volume 89.3 fL (78.0-98.0); Mean Platelet Volume 6.8 fL (7.4-10.4); Platelet Count 223 thou/uL (130-400); RBC Distribution Width 12.4 % (11.5-14.5); Red Blood Cell (RBC) Count 3.88 mill/uL (4.70-6.10); White Blood Cell (WBC) Count 7.7 thou/uL (4.8-10.8)
[2018-12-04 05:53] LABS: ALT (SGPT) 14 U/L (8-55); AST (SGOT) 10 U/L (5-34); Albumin 3.6 g/dL (3.4-4.8); Alkaline Phosphatase 133 U/L (40-150); Anion Gap 12 mmol/L (10-20); BUN (Urea Nitrogen) 24 mg/dL (8.4-25.7); Bilirubin, Total 0.1 mg/dL (0.2-1.2); Calc. Creatinine Clearance 102 mL/min (70-130); Calcium 9.3 mg/dL (7.8-10.44); Carbon Dioxide 24 mmol/L (23-31); Chloride 106 mmol/L (98-107); Dilantin 20.1 ug/mL (10.0-20.0); Estimated GFR-MDRD Greater than 90; Globulin 2.5 g/dL (2.4-3.5); Glucose 104 mg/dL (80-115); Potassium 3.9 mmol/L (3.5-5.1); Protein, Total 6.1 g/dL (5.8-8.1); Sodium 138 mmol/L (136-145)
[2018-12-04] MEDS: Folic Acid 1 MG TAB PO SCH (09:24)
[2018-12-04] MEDS: Nicotine 21 MG PATCH TD SCH (09:24)
[2018-12-04] MEDS: Thiamine 100 MG TAB PO SCH (09:24)
--- NOTE | 2018-12-04 18:24 | PRG ---
DATE OF SERVICE: 12/04/2018 SUBJECTIVE: The patient is awake and alert, eating, in no distress. He is getting stronger, but is refusing to get up and cooperate with therapy. LABORATORY DATA: White count 7700, hematocrit 34, hemoglobin 11. Sodium is 138, potassium 3.9, chloride 106, bicarbonate 24, BUN 24, and creatinine 0.7. Bilirubin 0.1. ASSESSMENT: 1. Stable Wernicke encephalopathy. 2. Seizure disorder, controlled on Dilantin with slightly elevated Dilantin level. PLAN: 1. Nurses to trim toenails. 2. Decrease Dilantin to 300 mg daily. 3. Continue to stress oral intake, physical therapy. 4. Await legal guardianship. Job ID: [id number]
[2018-12-04] MEDS: Ibuprofen 200 MG TAB PO PRN (18:47)
[2018-12-05] MEDS: Ibuprofen 200 MG TAB PO PRN ×2 (02:34→20:49)
[2018-12-05] MEDS: Folic Acid 1 MG TAB PO SCH (08:55)
[2018-12-05] MEDS: Thiamine 100 MG TAB PO SCH (08:55)
[2018-12-05] MEDS: Nicotine 21 MG PATCH TD SCH (08:55)
[2018-12-05] MEDS: Loratadine 10 MG TAB PO PRN (20:47)
[2018-12-05] MEDS: Melatonin 3 MG TAB PO PRN (20:49)
--- NOTE | 2018-12-05 21:26 | PRG ---
DATE OF SERVICE: 12/05/2018 SUBJECTIVE: Patient feels well, sitting up in the bed. No complaints, but still not cooperating with therapy. OBJECTIVE: VITAL SIGNS: Show temperature is 97.9, pulse 79, respirations 18, O2 saturation is 98% on room air, and blood pressure 165/82. LUNGS: Clear. CARDIAC EXAMINATION: Regular rhythm. ABDOMEN: Soft and nontender. DATA REVIEWED: Dilantin level was 20.1 previously, but Dilantin has been decreased to 300. ASSESSMENT: 1. Stable seizure disorder on Dilantin. 2. Wernicke's encephalopathy, stable. 3. Improving nutrition. 4. Persistent deconditioning secondary to poor cooperation. PLAN: Await guardianship and placement in a senior living. Job ID: [id number]
[2018-12-06] MEDS: Ibuprofen 200 MG TAB PO PRN (09:07)
[2018-12-06] MEDS: Nicotine 21 MG PATCH TD SCH (09:07)
[2018-12-06] MEDS: Thiamine 100 MG TAB PO SCH (09:07)
[2018-12-06] MEDS: Folic Acid 1 MG TAB PO SCH (09:07)
--- NOTE | 2018-12-06 18:22 | PRG ---
DATE OF SERVICE: 12/06/2018 SUBJECTIVE: The patient is awake and alert, in no distress, sitting up, eating supper. Appears to be getting stronger, but is still not listening to therapy instructions. OBJECTIVE: VITAL SIGNS: Show blood pressure 136/75, temperature 98, pulse 85, respirations 18, and O2 sats 98% on room air. LUNGS: Clear. CARDIAC EXAMINATION: Showed regular rhythm. ABDOMEN: Soft and nontender. NEUROLOGICAL: Shows no focal findings. ASSESSMENT: 1. Stable seizure disorder, on Dilantin 300 mg daily. 2. Wernicke encephalopathy, stable. 3. Malnutrition, improving greatly. 4. Deconditioning, not improving secondary to the patient's refusal to cooperate. PLAN: Obtain Dilantin level on Monday morning. Continue Dilantin 300 daily. Continue to await guardianship and placement. Job ID: [id number]
[2018-12-06] MEDS: Melatonin 3 MG TAB PO PRN (21:38)
[2018-12-07] MEDS: Nicotine 21 MG PATCH TD SCH (09:25)
[2018-12-07] MEDS: Thiamine 100 MG TAB PO SCH (09:26)
[2018-12-07] MEDS: Folic Acid 1 MG TAB PO SCH (09:26)
[2018-12-07] MEDS: Loratadine 10 MG TAB PO PRN (09:26)
[2018-12-07] MEDS: Melatonin 3 MG TAB PO PRN (22:02)
[2018-12-08] MEDS: Thiamine 100 MG TAB PO SCH (10:05)
[2018-12-08] MEDS: Nicotine 21 MG PATCH TD SCH (10:07)
[2018-12-08] MEDS: Folic Acid 1 MG TAB PO SCH (10:08)
--- NOTE | 2018-12-08 16:18 | PRG ---
DATE OF SERVICE: 12/08/2018 SUBJECTIVE: Mr. Eldridge is doing well. Denies any complaints, resting comfortably. He apparently was able to walk from his room to the nurse's station. He had two bowel movements. His sitter is in the room, and no concerns. OBJECTIVE: VITAL SIGNS: He is afebrile. Heart rate 79, respirations 20, oxygen saturation 97% on room air, and blood pressure 142/68. CARDIOVASCULAR: S1 and S2 plus. RESPIRATORY: Normal vesicular breath sounds. ABDOMEN: Soft, nontender. Bowel sounds heard in all quadrants. EXTREMITIES: Without cyanosis, clubbing. CENTRAL NERVOUS SYSTEM: Pleasantly confused from his alcoholic encephalopathy. IMPRESSION: 1. Alcoholic encephalopathy. 2. Allergic sinusitis. 3. Protein calorie malnutrition, slow improvement and deconditioning. PLAN: 1. Continue current medications. 2. Nutritional support. 3. DVT and stress ulcer prophylaxis. 4. Decubitus precautions. 5. Routine laboratory values. 6. Discharge planning. Job ID: [id number]
[2018-12-08] MEDS: Loratadine 10 MG TAB PO PRN (20:48)
[2018-12-08] MEDS: Melatonin 3 MG TAB PO PRN (20:48)
[2018-12-08] MEDS: Ibuprofen 200 MG TAB PO PRN (20:48)
[2018-12-09] MEDS: Thiamine 100 MG TAB PO SCH (09:22)
[2018-12-09] MEDS: Folic Acid 1 MG TAB PO SCH (09:22)
[2018-12-09] MEDS: Nicotine 21 MG PATCH TD SCH (09:24)
--- NOTE | 2018-12-09 15:42 | PRG ---
DATE OF SERVICE: 12/09/2018 SUBJECTIVE: Mr. Eldridge is doing the same. He denies any complaints. No diarrhea. Tolerating p.o. intake. No fever or chills. Discussed with his sitter as well. OBJECTIVE: VITAL SIGNS: He is afebrile. Heart rate 68, respirations 20, oxygen saturation 96% on room air, blood pressure 129/77. CARDIOVASCULAR SYSTEM: S1, S2 plus. RESPIRATORY SYSTEM: Normal vesicular breath sounds. ABDOMEN: Soft, nontender. Bowel sounds all quadrants. EXTREMITIES: Without cyanosis, clubbing. Central nervous system is awake and responsive, pleasantly confused. Motor and sensatory examination is grossly nonfocal. IMPRESSION: 1. Alcoholic encephalopathy. 2. Allergic sinusitis. 3. Improving protein calorie malnutrition. Stable deconditioning. PLAN: 1. Continue current medications. 2. Nutritional support. 3. DVT and stress ulcer prophylaxis. 4. Decubitus precautions. 5. Claritin p.r.n. 6. Awaiting placement. Job ID: [id number]
[2018-12-09] MEDS: Loratadine 10 MG TAB PO PRN (17:11)
[2018-12-09] MEDS: Ibuprofen 200 MG TAB PO PRN (20:49)
[2018-12-10] MEDS: Nicotine 21 MG PATCH TD SCH (09:02)
[2018-12-10] MEDS: Folic Acid 1 MG TAB PO SCH (09:02)
[2018-12-10] MEDS: Thiamine 100 MG TAB PO SCH (09:02)
[2018-12-10] MEDS: Acetaminophen 325 MG TAB PO PRN (14:25)
[2018-12-10] MEDS: cloNIDine 0.1mg/24 Hour PATCH TD SCH (18:17)
--- NOTE | 2018-12-10 18:23 | PRG ---
DATE OF SERVICE: 12/10/2018 SUBJECTIVE: The patient feels well, in fact gets up, walks to the bathroom today, took some steps, is eating well, still irritable, but is cooperating a little better. OBJECTIVE: VITAL SIGNS: Show temperature of 99, pulse 82, respirations 18, O2 sats 98% on room air. Blood pressure 136/70. LUNGS: Clear. CARDIAC: Regular rhythm. ABDOMEN: Soft and nontender. ASSESSMENT: 1. Wernicke's encephalopathy, stable. 2. Seizure disorder, controlled. 3. Malnutrition, resolved. 4. Decondition, improved. PLAN: 1. Continue nutritional support. 2. Continue Dilantin for seizures. 3. Await guardianship and legal custody. Job ID: [id number]
[2018-12-11] MEDS: Folic Acid 1 MG TAB PO SCH ×2 (09:11→09:53)
[2018-12-11] MEDS: Nicotine 21 MG PATCH TD SCH ×2 (09:11→09:53)
[2018-12-11] MEDS: Thiamine 100 MG TAB PO SCH ×2 (09:12→09:53)
[2018-12-12] MEDS: Folic Acid 1 MG TAB PO SCH (09:51)
[2018-12-12] MEDS: Nicotine 21 MG PATCH TD SCH (09:51)
[2018-12-12] MEDS: Thiamine 100 MG TAB PO SCH (09:51)
[2018-12-12] MEDS: Loratadine 10 MG TAB PO PRN (09:51)
[2018-12-12] MEDS: Acetaminophen 325 MG TAB PO PRN (16:54)
[2018-12-12] MEDS: Ibuprofen 200 MG TAB PO PRN (22:08)
[2018-12-13] MEDS: Loratadine 10 MG TAB PO PRN (09:44)
[2018-12-13] MEDS: Folic Acid 1 MG TAB PO SCH (09:44)
[2018-12-13] MEDS: Nicotine 21 MG PATCH TD SCH (09:44)
[2018-12-13] MEDS: Thiamine 100 MG TAB PO SCH (09:44)
--- NOTE | 2018-12-13 17:31 | PRG ---
DATE OF SERVICE: 12/12/2018 SUBJECTIVE: The patient feels well. No complaints except agitated about people asking him to get up, wants to lie in bed. OBJECTIVE: VITAL SIGNS: Show blood pressure is 117/74, temperature 97, pulse 83, respirations 20, O2 saturations 97% on room air. HEENT: Pupils are equal, round, and reactive to light and accommodation. Sclerae anicteric. Conjunctivae pale. Oral mucous membranes well hydrated. NECK: Supple. There are no nodes or masses. JVP is not elevated. NEUROLOGIC: Shows no focal findings. The patient is still oriented only to person. ASSESSMENT: 1. Stable Wernicke encephalopathy. 2. Improving nutrition. 3. Improving conditioning. 4. Stable seizure disorder. PLAN: Await guardianship and discuss with Case Management about need to place patient. Job ID: [id number]
--- NOTE | 2018-12-13 17:39 | PRG ---
DATE OF SERVICE: 12/11/2018 SUBJECTIVE: The patient is up moving in the room, appears to be stronger, but is still irritable and noncooperative. He is eating very well. OBJECTIVE: VITAL SIGNS: Show blood pressure is 139/88, O2 sat is 99%, and pulse 82. LUNGS: Clear. CARDIAC: Showed regular rhythm. ABDOMEN: Soft and nontender. ASSESSMENT: 1. Stable Wernicke encephalopathy. 2. Stable seizure disorder. 3. Resolved malnutrition. 4. Persistent deconditioning, secondary to noncompliance, but improving. PLAN: Await guardianship and transfer to skilled facility. Continue to stress physical therapy and nutritional support. Continue Dilantin for control of seizures. Job ID: [id number]
--- NOTE | 2018-12-13 17:54 | PRG ---
DATE OF SERVICE: 12/13/2018 SUBJECTIVE: The patient feels well, but is somewhat agitated, and does not want to talk. OBJECTIVE: LUNGS: Clear. CARDIAC: Regular rhythm. NEUROLOGIC: Shows no focal findings. VITAL SIGNS: Show temperature 97.4, pulse 81, respirations 18, O2 saturations 97% on room air, and blood pressure 149/92. ASSESSMENT: 1. Stable Wernicke encephalopathy, persistent agitation with increasing strength. 2. Stable seizure disorder, no recurrence, several weeks. 3. Resolved malnutrition. PLAN: Discuss with Case Management about transfer to facility. Job ID: [id number]
[2018-12-14] MEDS: Thiamine 100 MG TAB PO SCH (08:41)
[2018-12-14] MEDS: Folic Acid 1 MG TAB PO SCH (08:41)
[2018-12-14] MEDS: Nicotine 21 MG PATCH TD SCH (08:42)
[2018-12-15] MEDS: Nicotine 21 MG PATCH TD SCH (10:09)
[2018-12-15] MEDS: Folic Acid 1 MG TAB PO SCH (10:10)
[2018-12-15] MEDS: Thiamine 100 MG TAB PO SCH (10:10)
[2018-12-15] MEDS: Guaifenesin DM 100-10/5 ML UDCUP PO PRN (21:21)
[2018-12-16] MEDS: Folic Acid 1 MG TAB PO SCH (08:51)
[2018-12-16] MEDS: Thiamine 100 MG TAB PO SCH (08:51)
[2018-12-16] MEDS: Nicotine 21 MG PATCH TD SCH (08:52)
[2018-12-16] MEDS: Loratadine 10 MG TAB PO PRN (09:48)
[2018-12-17 07:12] LABS: #Basophils 0.1 thou/uL (0.0-0.2); #Eosinphils 0.4 thou/uL (0.0-0.7); #Lymphocytes 1.3 thou/uL (1.20-3.40); #Monocytes 0.9 thou/uL (0.11-0.59); #Neutrophils 4.6 thou/uL (1.40-6.50); %Basophils 0.8 % (0.0-1.0); %Eosinophils 5.2 % (0.0-10.0); %Lymphocytes 18.2 % (21.0-51.0); %Monocytes 12.7 % (0.0-10.0); %Neutrophils 63.2 % (42.0-75.0); Hemoglobin 12.7 g/dL (14.0-18.0); Mean Corpuscular HGB CONC 32.8 g/dL (32.0-36.0); Mean Corpuscular Volume 88.2 fL (78.0-98.0); Mean Platelet Volume 6.2 fL (7.4-10.4); Platelet Count 244 thou/uL (130-400); RBC Distribution Width 11.9 % (11.5-14.5); Red Blood Cell (RBC) Count 4.39 mill/uL (4.70-6.10); White Blood Cell (WBC) Count 7.3 thou/uL (4.8-10.8)
[2018-12-17 07:27] LABS: ALT (SGPT) 20 U/L (8-55); AST (SGOT) 15 U/L (5-34); Albumin 3.7 g/dL (3.4-4.8); Alkaline Phosphatase 124 U/L (40-150); Anion Gap 12 mmol/L (10-20); BUN (Urea Nitrogen) 18 mg/dL (8.4-25.7); Bilirubin, Total 0.2 mg/dL (0.2-1.2); Calc. Creatinine Clearance 106 mL/min (70-130); Calcium 9.6 mg/dL (7.8-10.44); Carbon Dioxide 25 mmol/L (23-31); Chloride 106 mmol/L (98-107); Estimated GFR-MDRD Greater than 90; Globulin 2.8 g/dL (2.4-3.5); Glucose 104 mg/dL (80-115); Protein, Total 6.5 g/dL (5.8-8.1); Sodium 139 mmol/L (136-145)
--- NOTE | 2018-12-17 07:33 | PRG ---
DATE OF SERVICE: 12/14/2018 SUBJECTIVE: The patient is up in the chair. He is not doing any therapy, is not agitated, but is not cooperating. He is still eating well. OBJECTIVE: VITAL SIGNS: Temperature 97.6, pulse 74, respirations 16, O2 sats 97% on room air, blood pressure 161/88. LUNGS: Clear. CARDIAC: Showed regular rhythm. ABDOMEN: Soft and nontender. ASSESSMENT: 1. Wernicke encephalopathy, stable. 2. Seizure disorder, controlled, on Dilantin. 3. Improved malnutrition. 4. Persistent deconditioning secondary to refusal to cooperate. PLAN: Discuss with Case Management about guardianship and placement. Continue supportive care. Job ID: [id number]
--- NOTE | 2018-12-17 07:35 | PRG ---
DATE OF SERVICE: 12/15/2018 SUBJECTIVE: The patient feels well with no complaints. Resting in bed, but not very conversive, does not want to get out of bed. OBJECTIVE: VITAL SIGNS: Shows temperature 96.5, pulse 78, respirations 18, O2 saturations 97% on room air, blood pressure 165/90. LUNGS: Clear. CARDIAC: Regular rhythm. ABDOMEN: Soft and nontender. ASSESSMENT: 1. Stable Wernicke's encephalopathy. 2. Stable seizure disorder. 3. Resolved malnutrition. 4. Persistent deconditioning. PLAN: Continue to stress need to ambulate. Continue Dilantin for seizure control. Continue to monitor for behavioral changes and Wernicke encephalopathy. Job ID: [id number]
--- NOTE | 2018-12-17 07:39 | PRG ---
DATE OF SERVICE: 12/16/2018 SUBJECTIVE: The patient is up, out of the bed, somnolent mainly in the bed. No complaints. Eating well. OBJECTIVE: VITAL SIGNS: Blood pressure is 154/90, temperature is 98, pulse 85, respirations 16, O2 sats 100% on room air. LUNGS: Clear. CARDIAC: Showed regular rhythm. ABDOMEN: Soft and nontender. ASSESSMENT: 1. Stable Wernicke encephalopathy. 2. Controlled seizure disorder. 3. Resolved malnutrition. 4. Stable deconditioning. PLAN: Continue supportive care. Repeat labs tomorrow. Continue to cough search for guardianship and placement. Job ID: [id number]
--- NOTE | 2018-12-17 07:52 | PRG ---
DATE OF SERVICE: 12/17/2018 SUBJECTIVE: The patient feels well. No complaints, lying in the bed, sleeping, awakens very slowly, but does respond. OBJECTIVE: VITAL SIGNS: Show blood pressure is 144/87, temperature is 98, pulse is 83, respirations are 20, O2 sats are 99% on room air. LUNGS: Clear. CARDIAC: Showed regular rhythm. ABDOMEN: Soft and nontender. ASSESSMENT: 1. Stable Wernicke encephalopathy. 2. Stable seizure disorder. 3. Improved malnutrition. 4. Improving deconditioning. PLAN: Repeat CBC. Comment Dilantin level. Discussed with case management. Job ID: [id number]
[2018-12-17] MEDS: Folic Acid 1 MG TAB PO SCH (08:27)
[2018-12-17] MEDS: Thiamine 100 MG TAB PO SCH (08:27)
[2018-12-17] MEDS: Nicotine 21 MG PATCH TD SCH (08:29)
[2018-12-17 09:20] LABS: Dilantin 6.1 ug/mL (10.0-20.0)
[2018-12-17] MEDS: cloNIDine 0.1mg/24 Hour PATCH TD SCH (17:47)
[2018-12-18] MEDS: Thiamine 100 MG TAB PO SCH (09:49)
[2018-12-18] MEDS: Nicotine 21 MG PATCH TD SCH (09:49)
[2018-12-18] MEDS: Loratadine 10 MG TAB PO PRN (09:49)
[2018-12-18] MEDS: Folic Acid 1 MG TAB PO SCH (09:49)
--- NOTE | 2018-12-18 18:54 | PRG ---
DATE OF SERVICE: 12/18/2018 SUBJECTIVE: The patient is awake, alert, lying in bed, and eating well. Apparently has been eating snacks at night before Dilantin was given. OBJECTIVE: VITAL SIGNS: His temperature is 98, pulse 81, respirations 16, O2 sats 99% on room air, blood pressure is 138/87. Dilantin level was returned subtherapeutic 2 days in a row at 7.3 despite getting 300 mg supposedly on an empty stomach at 6:00 am. ASSESSMENT: 1. Wernicke encephalopathy, stable. Seizure disorder with subtherapeutic Dilantin levels. 2. Deconditioning secondary to refusal to cooperate with therapy. 3. Malnutrition, improving. PLAN: Ensure n.p.o. after midnight. Repeat Dilantin level in the a.m. Continue to stress oral intake and physical therapy. Job ID: [id number]
[2018-12-19] MEDS: Thiamine 100 MG TAB PO SCH (09:01)
[2018-12-19] MEDS: Nicotine 21 MG PATCH TD SCH (09:01)
[2018-12-19] MEDS: Folic Acid 1 MG TAB PO SCH (09:01)
[2018-12-19] MEDS: Loratadine 10 MG TAB PO PRN (09:01)
--- NOTE | 2018-12-19 18:51 | PRG ---
DATE OF SERVICE: 12/19/2018 SUBJECTIVE: The patient is up in the wheelchair, visiting with nurse at the nurses station, awake and alert. Still very weak, but is eating well and is not distressed or agitated. The patient did have absence seizure today, and his Dilantin level has returned low 2 days in a row despite increasing dose of Dilantin to 400 daily. OBJECTIVE: VITAL SIGNS: Temperature of 98.5, pulse 58, respirations 16, O2 sats 98% on room air, and blood pressure 127/65. ASSESSMENT: 1. Wernicke encephalopathy. 2. Current seizure disorder with subtherapeutic Dilantin level. 3. Improving malnutrition. 4. Stable deconditioning. PLAN: Repeat Dilantin level in the a.m. ensure on empty stomach and if still low, we will have to increase Dilantin to twice daily. Job ID: [id number]
[2018-12-20] MEDS: Folic Acid 1 MG TAB PO SCH (08:47)
[2018-12-20] MEDS: Thiamine 100 MG TAB PO SCH (08:47)
[2018-12-20] MEDS: Nicotine 21 MG PATCH TD SCH (08:48)
[2018-12-20] MEDS: Ibuprofen 200 MG TAB PO PRN (20:56)
[2018-12-21] MEDS: Thiamine 100 MG TAB PO SCH (08:45)
[2018-12-21] MEDS: Loratadine 10 MG TAB PO PRN (08:46)
[2018-12-21] MEDS: Nicotine 21 MG PATCH TD SCH (08:46)
[2018-12-21] MEDS: Folic Acid 1 MG TAB PO SCH (08:46)
[2018-12-21] MEDS: Acetaminophen 325 MG TAB PO PRN (19:05)
[2018-12-21] MEDS: Melatonin 3 MG TAB PO PRN (20:08)
[2018-12-22] MEDS: Thiamine 100 MG TAB PO SCH (09:49)
[2018-12-22] MEDS: Folic Acid 1 MG TAB PO SCH (09:49)
[2018-12-22] MEDS: Loratadine 10 MG TAB PO PRN (09:49)
[2018-12-22] MEDS: Nicotine 21 MG PATCH TD SCH (09:50)
--- NOTE | 2018-12-22 23:25 | PRG ---
DATE OF SERVICE: 12/22/2018 SUBJECTIVE: Mr. Eldridge is a 68-year-old white male with severe alcoholic Wernicke's encephalopathy. He was initially admitted to [facility] for therapy. He received physical therapy and occupational therapy, but unfortunately, the patient is still being unable to be placed for discharge from the hospital. We are waiting on guardianship at this time. He continues to have confusion and is unable to keep care of himself. OBJECTIVE: VITAL SIGNS: Vital signs today reveal blood pressure 140/87, pulse 80 to 81, respirations 18, O2 saturation 97% to 98% on room air, and T-max 98.6. GENERAL: This is a well-developed, well-nourished, very pleasant white male who is very confused and disoriented. HEENT: Reveals normocephalic, nontraumatic cranium. Pupils equally round, and reactive. Extraocular movements are intact. Nose and throat are clear and moist. NECK: Supple without masses, nodes or bruits. CHEST: Clear to auscultation. No rales, rhonchi, wheezes, or cough is heard. HEART: Reveals a regular rate and rhythm. No murmurs, gallops, or rubs are noted. ABDOMEN: Soft, nontender without organomegaly. Normal bowel sounds are noted in all four quadrants. No rebound or guarding is noted. : Deferred. EXTREMITIES: Reveal no clubbing, cyanosis, or edema. ASSESSMENT: 1. Wernicke-Korsakoff encephalopathy. 2. Seizure disorder, well controlled with Dilantin. 3. Resolved aspiration pneumonia. 4. Severe deconditioning. 5. Malnutrition. 6. Confusion. PLAN: 1. Continue supportive care. 2. Continue Physical Therapy and Occupational Therapy. 3. Continue awaiting guardianship and placement. Job ID: [id number]
--- NOTE | 2018-12-23 08:17 | PRG ---
DATE OF SERVICE: 12/23/2018 SUBJECTIVE: This patient is a 68-year-old white male with severe alcoholic Wernicke's encephalopathy. He was initially admitted to [facility] for Physical Therapy. Unfortunately, he was unable to be placed because his relatives refused to take responsibility for him. The hospital has contacted courts, so that they can get guardianship for him. He continues to have confusion and is unable to care for himself. He needs placement in a facility. OBJECTIVE: VITAL SIGNS: This morning reveal blood pressure 141/86, pulse 80 to 83, respirations 18 to 20, O2 saturation 96% to 98% on room air, T-max 98.6. PHYSICAL EXAMINATION: GENERAL: This is a well-developed, well-nourished, thin white male, in no apparent distress at this time. HEENT: Reveals normocephalic, nontraumatic cranium. Pupils equally round, and reactive. Extraocular movements are intact. Nose and throat are clear and moist. NECK: Supple without masses, nodes, or bruits. CHEST: Clear to auscultation. No rales, rhonchi, or wheezes are heard. No cough is noted. HEART: Reveals a regular rate and rhythm. No murmurs, gallops, or rubs are noted. ABDOMEN: Soft, nontender without organomegaly. Normal bowel sounds are noted in all 4 quadrants. No rebound or guarding is noted. : Deferred. EXTREMITIES: Reveal no clubbing, cyanosis, or edema. NEUROLOGIC: The patient is oriented to person, but not place or time. ASSESSMENT: 1. Wernicke-Korsakoff encephalopathy. The patient is unable to care for himself. 2. Seizure disorder, well controlled with Dilantin. 3. Resolved aspiration pneumonia. 4. Severe deconditioning. 5. Malnutrition. 6. Confusion. PLAN: 1. Continue supportive care. 2. Awaiting guardianship appointment by the courts. 3. Awaiting placement per the courts. Job ID: [id number]
[2018-12-23] MEDS: Folic Acid 1 MG TAB PO SCH (09:43)
[2018-12-23] MEDS: Thiamine 100 MG TAB PO SCH (09:43)
[2018-12-23] MEDS: Loratadine 10 MG TAB PO PRN (09:43)
[2018-12-23] MEDS: Nicotine 21 MG PATCH TD SCH (09:43)
[2018-12-23] MEDS: Acetaminophen 325 MG TAB PO PRN (21:48)
[2018-12-24] MEDS: Folic Acid 1 MG TAB PO SCH (09:43)
[2018-12-24] MEDS: Thiamine 100 MG TAB PO SCH (09:43)
[2018-12-24] MEDS: Nicotine 21 MG PATCH TD SCH (09:44)
--- NOTE | 2018-12-24 15:52 | PRG ---
DATE OF SERVICE: 12/21/2018 SUBJECTIVE: The patient feels well, up in the room, no complaints, not cooperating with therapy, however, but is eating well. OBJECTIVE: VITAL SIGNS: Temperature 98.3, pulse 68, respiration 18, O2 saturations 99% on room air, blood pressure 129/65. LUNGS: Clear. CARDIAC: Showed regular rhythm. ABDOMEN: Soft and nontender. ASSESSMENT: 1. Stable Wernicke's encephalopathy. Awaiting decision on domestic violence counselor, legal guardianship and placement. 2. Seizure disorder, uncontrolled on dilantin 400 mg every morning and I have recently increased to 250 every 12 with repeat Dilantin level in several days. Job ID: [id number]
--- NOTE | 2018-12-24 16:06 | PRG ---
DATE OF SERVICE: 12/24/2018 SUBJECTIVE: The patient is awake and alert in room. No complaints. No agitation. No lethargy or nausea. OBJECTIVE: VITAL SIGNS: Show temperature 96, pulse 83, respirations 20, O2 sats 97% on room air, and blood pressure 158/89. Dilantin level is therapeutic at 16.8. NEUROLOGIC: Shows no focal findings. ASSESSMENT: 1. Wernicke encephalopathy, stable. 2. Seizure disorder, controlled, on Dilantin. 3. Improved malnutrition. 4. Good oral intake. 5. Persistent deconditioning secondary to refusal to cooperate. PLAN: 1. Continue to discuss with associate juvenile court judge about guardianship and placement. 2. Continue Dilantin 250 twice daily and repeat level again in several days unless symptoms of toxicity occur. Job ID: [id number]
[2018-12-24] MEDS: Ibuprofen 200 MG TAB PO PRN (16:38)
[2018-12-24] MEDS: cloNIDine 0.1mg/24 Hour PATCH TD SCH (18:16)
--- NOTE | 2018-12-25 07:31 | PRG ---
DATE OF SERVICE: 12/20/2018 SUBJECTIVE: The patient is up in the chair, visiting with nurses, somewhat agitated, but in no distress. OBJECTIVE: VITAL SIGNS: Temperature is 98.4, pulse 75, respirations 18, O2 saturation 100% on room air, blood pressure 143/88. LUNGS: Clear. CARDIAC: Shows regular rhythm. ABDOMEN: Soft and nontender. The patient has had mild seizure. LABORATORY DATA: Laboratory showed a Dilantin level of 6.9, subtherapeutic. ASSESSMENT: 1. Wernicke encephalopathy, stable. 2. Seizures disorder, uncontrolled secondary to subtherapeutic Dilantin level. PLAN: Stress Dilantin is given on empty stomach and repeat level in 3 days and increase Dilantin to 250 mg twice daily. Job ID: [id number]
[2018-12-25] MEDS: Nicotine 21 MG PATCH TD SCH (09:58)
[2018-12-25] MEDS: Thiamine 100 MG TAB PO SCH (09:58)
[2018-12-25] MEDS: Folic Acid 1 MG TAB PO SCH (09:58)
[2018-12-25] MEDS: Loratadine 10 MG TAB PO PRN (09:58)
[2018-12-25] MEDS: Melatonin 3 MG TAB PO PRN (19:59)
--- NOTE | 2018-12-26 06:53 | PRG ---
DATE OF SERVICE: 12/25/2018 SUBJECTIVE: The patient feels the same, up in the chair, in no distress. Eating well, but not cooperating with the nurses as far as physical therapy, but is assisting somewhat in ADLs. No seizure activity for the last several days. OBJECTIVE: VITAL SIGNS: Shows temperature is 97.4, pulse is 81, respirations 20, O2 sats 99% on room air, blood pressure 129/81. LABORATORY DATA: Most recent Dilantin level, therapeutic at 16.8 on 250 twice daily Dilantin. ASSESSMENT AND PLAN: 1. Stable Wernicke encephalopathy with increased strength and nutrition, but inability to maintain ADLs secondary to cognitive dysfunction, inability to cooperate. 2. Seizure disorder, controlled with Dilantin increased dose and we will check a level in two days. 3. Deconditioning, improved slightly secondary to noncooperation with physical therapy. Job ID: [id number]
[2018-12-26] MEDS: Nicotine 21 MG PATCH TD SCH (09:33)
[2018-12-26] MEDS: Thiamine 100 MG TAB PO SCH (09:34)
[2018-12-26] MEDS: Folic Acid 1 MG TAB PO SCH (09:34)
[2018-12-26] MEDS: Loratadine 10 MG TAB PO PRN (09:34)
--- NOTE | 2018-12-27 06:01 | PRG ---
DATE OF SERVICE: 12/26/2018 SUBJECTIVE: The patient is awake and alert, somewhat agitated, but in no distress, is eating well. He is sitting up in the wheelchair long periods of time, but will not walk without assistance, but has not fallen. He has no further seizures. OBJECTIVE: VITAL SIGNS: Shows his temperature is 98.8, pulse 76, respirations 16, O2 sats 99% on room air, blood pressure 140/86. LUNGS: Clear. CARDIAC: Examination showed regular rhythm. ABDOMEN: Soft and nontender. NEUROLOGIC: Shows no focal findings. ASSESSMENT: 1. Stable Wernicke encephalopathy with failure to increase strength secondary to failure to cooperate with therapy with increased nutrition. 2. Seizure disorder, on 500 mg of Dilantin with no further seizures and we will check level in the a.m. Job ID: [id number]
[2018-12-27] MEDS: Nicotine 21 MG PATCH TD SCH (09:34)
[2018-12-27] MEDS: Folic Acid 1 MG TAB PO SCH (09:34)
[2018-12-27] MEDS: Thiamine 100 MG TAB PO SCH (09:34)
[2018-12-27] MEDS: Loratadine 10 MG TAB PO PRN (09:34)
[2018-12-28] MEDS: Thiamine 100 MG TAB PO SCH (09:38)
[2018-12-28] MEDS: Folic Acid 1 MG TAB PO SCH (09:38)
[2018-12-28] MEDS: Nicotine 21 MG PATCH TD SCH (09:38)
[2018-12-28] MEDS: Guaifenesin DM 100-10/5 ML UDCUP PO PRN (19:30)
[2018-12-28] MEDS: Loratadine 10 MG TAB PO PRN (19:30)
[2018-12-28] MEDS: Sodium Chloride 0.65% Nasal 44 ML BOT EA NARE SCH (21:07)
[2018-12-29] MEDS: Acetaminophen 325 MG TAB PO PRN (02:19)
[2018-12-29] MEDS ORDERED: Phenytoin Sodium 100 MG/2 ML VIAL ONE (10:19)
[2018-12-29] MEDS: Loratadine 10 MG TAB PO PRN (10:23)
[2018-12-29] MEDS: Thiamine 100 MG TAB PO SCH (10:23)
[2018-12-29] MEDS: Sodium Chloride 0.65% Nasal 44 ML BOT EA NARE SCH ×3 (10:24→21:06)
[2018-12-29] MEDS: Folic Acid 1 MG TAB PO SCH (10:24)
[2018-12-29] MEDS: Nicotine 21 MG PATCH TD SCH (10:25)
--- NOTE | 2018-12-29 14:08 | PRG ---
DATE OF SERVICE: 12/29/2018 SUBJECTIVE: Mr. Eldridge is doing the same. He does complain of some sinus congestion. No fever or chills. No chest pain or shortness of breath. Still awaiting placement. OBJECTIVE: VITAL SIGNS: He is afebrile, heart rate is 74, respirations 18, oxygen saturation 98% on room air, and blood pressure 118/70. CARDIOVASCULAR SYSTEM: S1 and S2 plus. RESPIRATORY SYSTEM: Normal vesicular breath sounds. ABDOMEN: Soft, scaphoid, nontender. Bowel sounds heard in all quadrants. EXTREMITIES: Without cyanosis or clubbing. CENTRAL NERVOUS SYSTEM: Cognitive deficits consistent with his alcoholic encephalopathy, no change. IMPRESSION: 1. Alcoholic encephalopathy. 2. Allergic sinusitis. 3. Improved protein-calorie malnutrition. PLAN: 1. Continue current medications. 2. Nutritional support. 3. Awaiting placement. 4. Routine laboratory values. 5. Decubitus precautions. 6. DVT and stress ulcer prophylaxis. Job ID: [id number]
[2018-12-30 03:30] LABS: Bilirubin Negative (Negative); Blood, Urine Negative (Negative); Glucose, Urine (Dipstick) Negative (Negative); Leukocyte Moderate (Negative); Nitrite Positive (Negative); Protein, Urine (Dipstick) Negative (Neg-Trace); Specific Gravity, Urine 1.025 (1.005-1.030); Urobilinogen 0.2 mg/dL (0.2-1.0)
[2018-12-30 03:31] LABS: Clarity Hazy (Clear); RBC/HPF None Seen HPF (0-3)
[2018-12-30 03:32] LABS: Bacteria/HPF 3+ HPF (None Seen); Squamous Epithelial 0-3 HPF (0-3)
[2018-12-30] MEDS: Folic Acid 1 MG TAB PO SCH (08:37)
[2018-12-30] MEDS: Nicotine 21 MG PATCH TD SCH (08:37)
[2018-12-30] MEDS: Thiamine 100 MG TAB PO SCH (08:37)
[2018-12-30] MEDS: Loratadine 10 MG TAB PO PRN (08:37)
[2018-12-30] MEDS: Sodium Chloride 0.65% Nasal 44 ML BOT EA NARE SCH ×3 (08:47→20:21)
[2018-12-31] MEDS: Thiamine 100 MG TAB PO SCH (09:31)
[2018-12-31] MEDS: Loratadine 10 MG TAB PO PRN (09:31)
[2018-12-31] MEDS: Folic Acid 1 MG TAB PO SCH (09:31)
[2018-12-31] MEDS: Nicotine 21 MG PATCH TD SCH (09:32)
[2018-12-31] MEDS: Sodium Chloride 0.65% Nasal 44 ML BOT EA NARE SCH ×3 (09:33→20:19)
--- NOTE | 2018-12-31 11:57 | PRG ---
DATE OF SERVICE: 12/28/2018 SUBJECTIVE: The patient feels well with no complaints, lying in bed. No agitation, but no cooperation with therapy. OBJECTIVE: VITAL SIGNS: Show his blood pressure is 117/76, pulse 99, respirations 20, and O2 saturations 99% on room air. LUNGS: Clear. CARDIAC: Showed regular rhythm. ABDOMEN: Soft and nontender. SKIN/EXTREMITIES: Showed no edema. LABORATORY DATA: Laboratory shows most recent Dilantin level was 24.7, but dose has been decreased. No toxicity noted and no seizures. ASSESSMENT: 1. Wernicke encephalopathy, stable. 2. Seizure disorder, controlled, but with excessive Dilantin level and we will continue to monitor on decreased dose. PLAN: Continue to arrange for placement on skilled facility. Job ID: [id number]
--- NOTE | 2018-12-31 12:02 | PRG ---
DATE OF SERVICE: 12/30/2018 SUBJECTIVE: The patient feels well, lying in bed, sleeping with no complaints, but has been eating well, not cooperating with therapy. OBJECTIVE: VITAL SIGNS: Show temperature is 97.8, pulse 79, respirations 20, O2 saturations 97% on room air, and blood pressure 131/82. LUNGS: Clear. CARDIAC: Showed regular rhythm. ABDOMEN: Soft and nontender. LABORATORY DATA: Dilantin level is 17.7. ASSESSMENT: 1. Stable Wernicke encephalopathy. 2. Stable seizure disorder, controlled with Dilantin with therapeutic level. 3. Resolved malnutrition. 4. Persistent deconditioning secondary to noncompliance. PLAN: Await community liaison officer's decision in 2 days for placement and guardianship into the [facility]. Job ID: [id number]
[2018-12-31] MEDS: Sodium Chloride 0.65% Nasal 44 ML BOT EA NARE PRN (12:49)
[2018-12-31] MEDS: cloNIDine 0.1mg/24 Hour PATCH TD SCH (17:44)
[2018-12-31] MEDS: Ibuprofen 200 MG TAB PO PRN (20:19)
[2019-01-01] MEDS: Sodium Chloride 0.65% Nasal 44 ML BOT EA NARE SCH ×3 (09:14→20:34)
[2019-01-01] MEDS: Nicotine 21 MG PATCH TD SCH (09:14)
[2019-01-01] MEDS: Loratadine 10 MG TAB PO PRN (09:14)
[2019-01-01] MEDS: Folic Acid 1 MG TAB PO SCH (09:14)
[2019-01-01] MEDS: Thiamine 100 MG TAB PO SCH (09:14)
[2019-01-01] MEDS ORDERED: Haloperidol Lactate 5 MG/ML VIAL ONE (11:13)
[2019-01-01] MEDS ORDERED: Haloperidol Lactate 5 MG/ML VIAL IM SCH (11:30)
--- NOTE | 2019-01-02 06:36 | PRG ---
DATE OF SERVICE: 01/01/2019 SUBJECTIVE: The patient feels well, but has become agitated today, more irritable and angry. Denying any fevers, chills, nausea, vomiting, or abdominal pain. OBJECTIVE: VITAL SIGNS: Shows vital signs with blood pressure 142/84, temperature 97.4, pulse 79, respirations 18, O2 sats 99% on room air. Urine culture, however, has returned showing Klebsiella with sensitivities to sulfa drugs, quinolones, and multiple other medications. LUNGS: Clear. CARDIAC EXAMINATION: Regular rhythm. ABDOMEN: Soft, nontender. ASSESSMENT: 1. Increased irritability, possibly due to urinary tract infection with metabolic encephalopathy. 2. Possible deterioration of Wernicke encephalopathy. We will start on Seroquel 25 twice daily as well as Bactrim DS twice daily for those causes of metabolic encephalopathy. PLAN: Bactrim DS twice daily, Seroquel 25 twice daily. Await judges decision on guardianship. Job ID: [id number]
[2019-01-02] MEDS: Sulfameth/Trimethoprim DS 800-160mg TAB PO SCH ×2 (09:06→21:10)
[2019-01-02] MEDS: Folic Acid 1 MG TAB PO SCH (09:06)
[2019-01-02] MEDS: Thiamine 100 MG TAB PO SCH (09:06)
[2019-01-02] MEDS: Nicotine 21 MG PATCH TD SCH (09:06)
[2019-01-02] MEDS: Sodium Chloride 0.65% Nasal 44 ML BOT EA NARE SCH ×3 (09:12→21:13)
[2019-01-03] MEDS: Sodium Chloride 0.65% Nasal 44 ML BOT EA NARE SCH (08:17)
[2019-01-03] MEDS: Sulfameth/Trimethoprim DS 800-160mg TAB PO SCH ×2 (08:17→21:40)
[2019-01-03] MEDS: Nicotine 21 MG PATCH TD SCH (08:17)
[2019-01-03] MEDS: Folic Acid 1 MG TAB PO SCH (08:18)
[2019-01-03] MEDS: Thiamine 100 MG TAB PO SCH (08:18)
[2019-01-03] MEDS ORDERED: Haloperidol Lactate 5 MG/ML VIAL IM SCH (10:45)
[2019-01-03] MEDS: Sodium Chloride 0.65% Nasal 44 ML BOT EA NARE PRN (14:40)
[2019-01-03] MEDS: Ibuprofen 200 MG TAB PO PRN (23:48)
[2019-01-04] MEDS: Acetaminophen 325 MG TAB PO PRN (00:38)
[2019-01-04] MEDS: Sulfameth/Trimethoprim DS 800-160mg TAB PO SCH ×2 (10:02→21:55)
[2019-01-04] MEDS: Folic Acid 1 MG TAB PO SCH (10:02)
[2019-01-04] MEDS: Thiamine 100 MG TAB PO SCH (10:03)
[2019-01-04] MEDS: Nicotine 21 MG PATCH TD SCH (10:04)
[2019-01-04] MEDS: Sodium Chloride 0.65% Nasal 44 ML BOT EA NARE PRN ×2 (14:28→18:02)
--- NOTE | 2019-01-04 18:52 | PRG ---
DATE OF SERVICE: 01/04/2019 SUBJECTIVE: The patient feels well, much more calm, appreciative, pleasant today with no agitation, sitting in the nurses station. OBJECTIVE: VITAL SIGNS: Show blood pressure is 130/79, temperature 97.5, pulse 85, respirations 16, and O2 saturations 99% on room air. LUNGS: Clear. CARDIAC: Shows regular rhythm. ABDOMEN: Soft and nontender. NEUROLOGIC: Shows no focal findings. ASSESSMENT: 1. Improved Wernicke encephalopathy with behavioral disturbance, on Seroquel 50 twice daily. 2. Stable seizure disorder, on Dilantin 200 twice daily. 3. Improved malnutrition. 4. Slowly improving deconditioning. PLAN: 1. Dilantin level in the a.m. to evaluate for toxicity. 2. Continue Bactrim DS empirically for one week. 3. Continue Seroquel 50 twice daily. Job ID: [id number]
--- NOTE | 2019-01-04 18:57 | PRG ---
DATE OF SERVICE: 01/03/2019 SUBJECTIVE: The patient is still agitated today, but is becoming more lethargic. We will continue on this medication as he is not combative with the nurses. OBJECTIVE: VITAL SIGNS: Blood pressure is 142/88, O2 sats 97%, respirations 20, temperature is 96, and pulse 78. LUNGS: Clear. CARDIAC: Regular rhythm. ABDOMEN: Soft, nontender. SKIN/EXTREMITIES: Displayed no edema, clubbing, or cyanosis. NEUROLOGICAL: Shows no focal finding. ASSESSMENT: 1. Wernicke encephalopathy with behavioral disturbance appears to be improved with increased Seroquel to 50 twice daily. 2. Seizure disorder, stable, on Dilantin 200 twice daily. PLAN: Continue to monitor behavioral disturbance on increased Seroquel. Await judges' decision on guardianship. Job ID: [id number]
--- NOTE | 2019-01-04 19:13 | PRG ---
DATE OF SERVICE: 01/02/2019 SUBJECTIVE: The patient has become much more agitated, requiring occasional parenteral Haldol with no relief on the Seroquel 25 twice daily or the Bactrim. He is eating well, but has become agitated and somewhat belligerent. OBJECTIVE: VITAL SIGNS: Shows blood pressure is 133/83, temperature is 98, pulse 77, respirations 20, and O2 saturations 98% on room air. LUNGS: Clear. CARDIAC: Showed regular rhythm. ABDOMEN: Soft and nontender. NEUROLOGIC: Shows no focal findings except for agitation and confusion. ASSESSMENT: Increased Wernicke encephalopathy with behavioral disturbance. PLAN: 1. Increase Seroquel to 50 mg p.o. b.i.d. tomorrow. 2. Continue sulfa twice daily. Possible urinary tract infection. Continue Dilantin 200 twice daily for seizure prophylaxis. 3. Continue Catapres patch for blood pressure control. Job ID: [id number]
[2019-01-05] MEDS: Thiamine 100 MG TAB PO SCH (09:46)
[2019-01-05] MEDS: Nicotine 21 MG PATCH TD SCH (09:46)
[2019-01-05] MEDS: Folic Acid 1 MG TAB PO SCH (09:46)
[2019-01-05] MEDS: Loratadine 10 MG TAB PO PRN (09:46)
[2019-01-05] MEDS: Sulfameth/Trimethoprim DS 800-160mg TAB PO SCH ×2 (09:46→20:39)
[2019-01-06] MEDS: Nicotine 21 MG PATCH TD SCH (09:23)
[2019-01-06] MEDS: Folic Acid 1 MG TAB PO SCH (09:27)
[2019-01-06] MEDS: Sulfameth/Trimethoprim DS 800-160mg TAB PO SCH ×2 (09:27→21:46)
[2019-01-06] MEDS: Loratadine 10 MG TAB PO PRN (09:28)
[2019-01-06] MEDS: Thiamine 100 MG TAB PO SCH (09:28)
[2019-01-06] MEDS ORDERED: Haloperidol Lactate 5 MG/ML VIAL IM SCH (14:30)
[2019-01-06] MEDS: Sodium Chloride 0.65% Nasal 44 ML BOT EA NARE PRN (14:32)
[2019-01-07] MEDS: Sulfameth/Trimethoprim DS 800-160mg TAB PO SCH ×2 (09:47→20:28)
[2019-01-07] MEDS: Folic Acid 1 MG TAB PO SCH (09:47)
[2019-01-07] MEDS: Thiamine 100 MG TAB PO SCH (09:47)
[2019-01-07] MEDS: Nicotine 21 MG PATCH TD SCH (09:49)
--- NOTE | 2019-01-07 17:52 | PRG ---
DATE OF SERVICE: 01/06/2019 SUBJECTIVE: The patient feels well, somewhat more agitated today, however, not as cooperative as yesterday. OBJECTIVE: VITAL SIGNS: His temperature is 97.6, pulse 74, respirations 18, O2 saturations 97% on room air, and blood pressure 116/61. NEUROLOGIC: Shows no focal findings. LUNGS: Clear. CARDIAC: Showed regular rhythm. LABORATORY DATA: No new labs today. ASSESSMENT: 1. Stable Wernicke encephalopathy. Awaiting guardianship from the court. 2. Seizure disorder with Dilantin toxicity with decreasing dose medication with Dilantin level to be drawn in the a.m. 3. Malnutrition, resolved. 4. Deconditioning, slowly improving. PLAN: 1. Continue to monitor for recurrent seizures and seizure prophylaxis. 2. Await machine load clerk's order on placement. Job ID: [id number]
[2019-01-07] MEDS: cloNIDine 0.1mg/24 Hour PATCH TD SCH (17:54)
--- NOTE | 2019-01-07 18:04 | PRG ---
DATE OF SERVICE: 01/05/2019 SUBJECTIVE: The patient feels well, much less agitated today, cheerful, and apologetic. Appears to be stronger and has been up at the nurses' station. OBJECTIVE: VITAL SIGNS: Show temperature is 97.8, pulse 65, respirations 18, O2 saturations 98% on room air, blood pressure 122/63. LUNGS: Clear. CARDIAC: Showed regular rhythm. ABDOMEN: Soft and nontender. SKIN AND EXTREMITIES: Showed no edema, clubbing, or cyanosis. ASSESSMENT: 1. Stable Wernicke encephalopathy. 2. Stable seizure disorder, controlled with Dilantin with decreased dose secondary to recent toxicity. 3. Improving behavior. 4. Improving malnutrition. PLAN: Await nursing care attendant's order on guardianship. Repeat Dilantin level in several days. Repeat labs in several days. Continue medications as ordered. Job ID: [id number]
[2019-01-07 18:20] LABS: #Basophils 0.1 thou/uL (0.0-0.2); #Eosinphils 0.4 thou/uL (0.0-0.7); #Neutrophils 5.8 thou/uL (1.40-6.50); %Basophils 0.7 % (0.0-1.0); %Eosinophils 4.8 % (0.0-10.0); %Lymphocytes 21.5 % (21.0-51.0); %Monocytes 10.3 % (0.0-10.0); %Neutrophils 62.8 % (42.0-75.0); Mean Corpuscular HGB CONC 32.7 g/dL (32.0-36.0); Mean Corpuscular Hemoglobin 28.8 pg (27.0-31.0); Mean Corpuscular Volume 88.2 fL (78.0-98.0); Mean Platelet Volume 6.3 fL (7.4-10.4); Platelet Count 294 thou/uL (130-400); RBC Distribution Width 12.3 % (11.5-14.5); Red Blood Cell (RBC) Count 4.84 mill/uL (4.70-6.10); White Blood Cell (WBC) Count 9.3 thou/uL (4.8-10.8)
[2019-01-07 18:38] LABS: ALT (SGPT) 23 U/L (8-55); AST (SGOT) 20 U/L (5-34); Albumin 4.3 g/dL (3.4-4.8); Alkaline Phosphatase 140 U/L (40-150); Anion Gap 16 mmol/L (10-20); BUN (Urea Nitrogen) 23 mg/dL (8.4-25.7); Bilirubin, Total 0.1 mg/dL (0.2-1.2); Calc. Creatinine Clearance 80 mL/min (70-130); Calcium 9.9 mg/dL (7.8-10.44); Carbon Dioxide 25 mmol/L (23-31); Chloride 103 mmol/L (98-107); Estimated GFR-MDRD 85; Globulin 3.2 g/dL (2.4-3.5); Glucose 102 mg/dL (80-115); Potassium 4.1 mmol/L (3.5-5.1); Protein, Total 7.5 g/dL (5.8-8.1); Sodium 140 mmol/L (136-145)
[2019-01-08] MEDS: Folic Acid 1 MG TAB PO SCH (07:24)
[2019-01-08] MEDS: Thiamine 100 MG TAB PO SCH (07:24)
[2019-01-08] MEDS: Sulfameth/Trimethoprim DS 800-160mg TAB PO SCH ×2 (07:24→22:20)
[2019-01-08] MEDS: Nicotine 21 MG PATCH TD SCH (07:24)
--- NOTE | 2019-01-08 18:32 | PRG ---
DATE OF SERVICE: 01/08/2019 SUBJECTIVE: The patient feels well, more alert and cheerful today, not agitated, and eating well. OBJECTIVE: VITAL SIGNS: Show temperature is 98, pulse 88, respirations 18, O2 saturation 98% on room air, and blood pressure 120/74. LUNGS: Clear. CARDIAC: Showed regular rhythm. No gallops or murmurs. ABDOMEN: Soft and nontender. ASSESSMENT: 1. Stable Wernicke encephalopathy, controlled behavior, on Seroquel. 2. Seizure disorder with recent toxic Dilantin level, now stable, on 300 mg a day and we will check levels in the a.m. 3. Improving malnutrition. 4. Improving deconditioning. PLAN: Await livestock farmers's order for custody. Continue Dilantin. Continue Seroquel. Job ID: [id number]
[2019-01-08] MEDS ORDERED: Haloperidol Lactate 5 MG/ML VIAL SLOW IVP SCH (21:00)
[2019-01-08] MEDS: Sodium Chloride 0.65% Nasal 44 ML BOT EA NARE PRN (22:22)
[2019-01-08] MEDS ORDERED: Haloperidol Lactate 5 MG/ML VIAL IM SCH (22:30)
[2019-01-09] MEDS: Sulfameth/Trimethoprim DS 800-160mg TAB PO SCH ×2 (09:45→21:12)
[2019-01-09] MEDS: Folic Acid 1 MG TAB PO SCH (09:45)
[2019-01-09] MEDS: Sodium Chloride 0.65% Nasal 44 ML BOT EA NARE PRN (09:46)
[2019-01-09] MEDS: Thiamine 100 MG TAB PO SCH (09:46)
[2019-01-09] MEDS: Loratadine 10 MG TAB PO PRN (09:46)
[2019-01-09] MEDS: Nicotine 21 MG PATCH TD SCH (09:46)
--- NOTE | 2019-01-09 18:29 | PRG ---
DATE OF SERVICE: 01/08/2019 SUBJECTIVE: The patient is alert, in no distress, became somewhat agitated tonight and acting out, required a dose of IM Haldol. He has been eating well. He has had no shortness of breath or chest pain. OBJECTIVE: VITAL SIGNS: Pulse 82, respirations 18, O2 sats 97% on room air, blood pressure 129/65. Dilantin level therapeutic at 17.2. LUNGS: Clear. CARDIAC: Regular rhythm. ASSESSMENT: 1. Persistent Wernicke encephalopathy with some behavioral disturbances. 2. Seizure disorder, controlled to goal. 3. Resolving malnutrition. 4. Improving deconditioning. PLAN: 1. Increase Seroquel 75 twice daily. 2. Continue Dilantin 300 daily. 3. Continue to await results of tree and shrub worker decision on guardianship. Job ID: [id number]
[2019-01-10] MEDS: Thiamine 100 MG TAB PO SCH (09:52)
[2019-01-10] MEDS: Sulfameth/Trimethoprim DS 800-160mg TAB PO SCH ×2 (09:52→21:45)
[2019-01-10] MEDS: Folic Acid 1 MG TAB PO SCH (09:52)
[2019-01-10] MEDS: Loratadine 10 MG TAB PO PRN (09:53)
[2019-01-10] MEDS: Nicotine 21 MG PATCH TD SCH (09:53)
[2019-01-10] MEDS: Sodium Chloride 0.65% Nasal 44 ML BOT EA NARE PRN (09:54)
--- NOTE | 2019-01-10 17:24 | PRG ---
DATE OF SERVICE: 01/09/2019 SUBJECTIVE: The patient feels well today, but became more agitated through the night last night. Today, I had his Seroquel increased to 75 twice daily with no increased sedation. OBJECTIVE: VITAL SIGNS: Show his blood pressure 177/89, pulse 106, temperature 98, respirations 22, O2 sats 98% on room air. LUNGS: Clear. CARDIAC: Showed regular rhythm. ABDOMEN: Soft and nontender. SKIN/EXTREMITIES: Show rash on the face. NEUROLOGIC: Shows no focal findings. ASSESSMENT: 1. Wernicke encephalopathy with behavioral disturbance, requiring increased Seroquel 75 twice daily. Monitor closely. 2. Seizure disorder, controlled on Dilantin. 3. Malnutrition, resolved. 4. Deconditioning, resolved. PLAN: Monitor on increased Seroquel. Continue Dilantin. Await guardianship decision. Job ID: [id number]
--- NOTE | 2019-01-10 17:30 | PRG ---
DATE OF SERVICE: 01/10/2019 SUBJECTIVE: The patient feels well, less agitated, comfortable cooperating with the nurses today. No extra sedation. OBJECTIVE: VITAL SIGNS: Temperature is 97, pulse 99, respirations 18, O2 saturation 98% on room air, and blood pressure 137/82. LUNGS: Clear. CARDIAC: Regular rhythm. ABDOMEN: Soft and nontender. ASSESSMENT: 1. Stable Wernicke encephalopathy with controlled agitation on Seroquel, increased to 75 twice daily with no sedation. 2. Seizure disorder, controlled on Dilantin 300 daily, therapeutic levels. 3. Malnutrition, resolved. 4. Deconditioning, resolving. PLAN: Continue on these medications for now. Monitor for agitation. Monitor for seizures. Await decision of cook specialty for discharge planning. Job ID: [id number]
[2019-01-11] MEDS: Folic Acid 1 MG TAB PO SCH (09:27)
[2019-01-11] MEDS: Sulfameth/Trimethoprim DS 800-160mg TAB PO SCH ×2 (09:28→20:15)
[2019-01-11] MEDS: Thiamine 100 MG TAB PO SCH (09:28)
[2019-01-11] MEDS: Nicotine 21 MG PATCH TD SCH (09:30)
[2019-01-11] MEDS: Sodium Chloride 0.65% Nasal 44 ML BOT EA NARE PRN (20:14)
[2019-01-12] MEDS: Acetaminophen 325 MG TAB PO PRN (02:30)
--- NOTE | 2019-01-12 08:03 | PRG ---
DATE OF SERVICE: 01/12/2019 SUBJECTIVE: This is a 69-year-old white male with severe alcoholic Wernicke encephalopathy. Initially, admitted to [facility] for PT. Unfortunately, he was unable to be placed. His relatives refused to take responsibility for him. The patient has contacted the court system, and the motors and generators inspector is trying to get him a guardianship. He continues to have confusion and is unable to care for himself. He needs placement in a facility. OBJECTIVE: VITAL SIGNS: This morning reveal blood pressure 137/81, pulse 80 to 86, respirations 18 to 20, O2 saturation 98% on room air, T-max 97.9. PHYSICAL EXAMINATION: GENERAL: This is a well-developed, well-nourished, pleasant, white male. The patient has been agitated, but about a week ago became very pleasant. HEENT: Reveals normocephalic and nontraumatic cranium, somewhat disheveled look. Pupils are equally round and reactive. Extraocular movements are intact. Nose and throat are moist. NECK: Supple without masses, nodes, or bruits. CHEST: Clear to auscultation. No rales, rhonchi, wheezes, or cough is heard. HEART: Reveals a regular rate and rhythm without murmurs, gallops, or rubs. ABDOMEN: Soft and nontender without organomegaly. Normal bowel sounds are heard. No rebound or guarding is noted. : Deferred. EXTREMITIES: Reveal no clubbing, cyanosis, or edema. NEUROLOGIC: The patient is oriented to person, but not place or time. ASSESSMENT: 1. Wernicke-Korsakoff encephalopathy. The patient is unable to care for self. 2. Seizure disorder, well controlled on Dilantin. 3. Resolving aspiration pneumonia. 4. Severe deconditioning. 5. Malnutrition. 6. Confusion. PLAN: 1. Continue supportive care. 2. Awaiting guardianship appointment by the courts. 3. Awaiting placement per the courts. Job ID: [id number]
[2019-01-12] MEDS: Nicotine 21 MG PATCH TD SCH ×2 (10:03→10:12)
[2019-01-12] MEDS: Sulfameth/Trimethoprim DS 800-160mg TAB PO SCH (10:04)
[2019-01-12] MEDS: Thiamine 100 MG TAB PO SCH (10:04)
[2019-01-12] MEDS: Folic Acid 1 MG TAB PO SCH (10:04)
[2019-01-12] MEDS: Sodium Chloride 0.65% Nasal 44 ML BOT EA NARE PRN (13:54)
--- NOTE | 2019-01-13 08:39 | PRG ---
DATE OF SERVICE: 01/13/2019 SUBJECTIVE: Mr. Eldridge is a very pleasant 69-year-old white male. He has severe alcoholic Wernicke encephalopathy. The patient was initially admitted to [facility] for physical therapy. Unfortunately, his relatives refused to take responsibility for him. He has been going to the court system for the engine assembler to get him guardianship. We are still awaiting for placement facility. The patient continues to have some confusion and is unable to care for himself at all. He remains in facility at [facility] at this time. OBJECTIVE: VITAL SIGNS: Reveal blood pressure 149/89, which is a little higher than his usual. It is usually 133/68. Pulse 77 to 87, respirations 18 to 20, O2 saturation 98% to 99% on room air, T-max 99. PHYSICAL EXAMINATION: VITAL SIGNS: This is a well-developed, very thin, white male, in no apparent distress at this time. HEENT: Reveals normocephalic and nontraumatic cranium. Pupils are equally round and reactive. Extraocular movements are intact. Nose and throat are dry this morning. The patient is somewhat disheveled this morning again. NECK: Supple without masses, nodes, or bruits. CHEST: Clear to auscultation. Breath sounds are distant. No rales, rhonchi, wheezes, or cough is heard. HEART: Reveals a regular rate and rhythm without murmurs, gallops, or rubs. ABDOMEN: Scaphoid, soft, and nontender without organomegaly. Normal bowel sounds are noted in all 4 quadrants. No rebound or guarding is noted. : Deferred. EXTREMITIES: Reveal no clubbing, cyanosis, or edema. NEUROLOGIC: The patient is oriented to person, but not place or time. ASSESSMENT: 1. Wernicke-Korsakoff encephalopathy. 2. Seizure disorder, controlled on Dilantin. 3. Resolving aspiration pneumonia. 4. Severe deconditioning. 5. Malnutrition. 6. Confusion. 7. Well controlled on Dilantin. PLAN: 1. Continue supportive care. 2. Awaiting guardianship appointment by the courts. 3. Awaiting placement. Job ID: [id number]
[2019-01-13] MEDS: Thiamine 100 MG TAB PO SCH (09:28)
[2019-01-13] MEDS: Folic Acid 1 MG TAB PO SCH (09:28)
[2019-01-13] MEDS: Nicotine 21 MG PATCH TD SCH (09:28)
[2019-01-13] MEDS: Sodium Chloride 0.65% Nasal 44 ML BOT EA NARE PRN ×2 (13:37→20:47)
[2019-01-14] MEDS: Ibuprofen 200 MG TAB PO PRN (05:44)
[2019-01-14] MEDS: Sodium Chloride 0.65% Nasal 44 ML BOT EA NARE PRN ×2 (07:38→20:41)
[2019-01-14] MEDS: Thiamine 100 MG TAB PO SCH (09:26)
[2019-01-14] MEDS: Folic Acid 1 MG TAB PO SCH (09:27)
[2019-01-14] MEDS: Nicotine 21 MG PATCH TD SCH (09:28)
[2019-01-14] MEDS: cloNIDine 0.1mg/24 Hour PATCH TD SCH (19:27)
[2019-01-15] MEDS: Nicotine 21 MG PATCH TD SCH (09:29)
[2019-01-15] MEDS: Thiamine 100 MG TAB PO SCH (09:30)
[2019-01-15] MEDS: Folic Acid 1 MG TAB PO SCH (09:30)
[2019-01-15] MEDS: Acetaminophen 325 MG TAB PO PRN (13:35)
[2019-01-15] MEDS: Sodium Chloride 0.65% Nasal 44 ML BOT EA NARE PRN (20:07)
[2019-01-16] MEDS: Thiamine 100 MG TAB PO SCH (08:59)
[2019-01-16] MEDS: Nicotine 21 MG PATCH TD SCH (08:59)
[2019-01-16] MEDS: Folic Acid 1 MG TAB PO SCH (09:00)
[2019-01-16] MEDS: Sodium Chloride 0.65% Nasal 44 ML BOT EA NARE PRN ×2 (13:09→20:40)
[2019-01-17] MEDS: Folic Acid 1 MG TAB PO SCH (09:08)
[2019-01-17] MEDS: Thiamine 100 MG TAB PO SCH (09:08)
[2019-01-17] MEDS: Sodium Chloride 0.65% Nasal 44 ML BOT EA NARE PRN (09:09)
[2019-01-17] MEDS: Nicotine 21 MG PATCH TD SCH (09:09)
--- NOTE | 2019-01-17 22:07 | PRG ---
DATE OF SERVICE: 01/14/2019 SUBJECTIVE: The patient is awake and alert, sitting up in bed. He has had his haircut, appears to be more cheerful with no agitation. OBJECTIVE: VITAL SIGNS: Temperature is 97.6, pulse is 80, respirations 18, O2 sats 99% on room air, blood pressure 152/99. LUNGS: Clear. CARDIAC: Regular rhythm. ABDOMEN: Soft and nontender. SKIN/EXTREMITIES: Display no edema, clubbing, cyanosis. NEUROLOGICAL: Shows no focal findings. ASSESSMENT: 1. Wernicke encephalopathy with behavioral agitation, appears to be improved on increased Seroquel dose of 75 mg twice daily. 2. Nicotine abuse, controlled with nicotine patch. 3. Seizure disorder, controlled with Dilantin 300 mg daily with therapeutic Dilantin level 17.2 last week. PLAN: Continue Dilantin 300 mg daily. Continue Seroquel 75 twice daily. Continue to attempt placement. Job ID: [id number]
--- NOTE | 2019-01-17 22:27 | PRG ---
DATE OF SERVICE: 01/15/2019 SUBJECTIVE: The patient feels well sitting up at the nurses' station with no complaints, having no cough, shortness of breath. Eating well. OBJECTIVE: VITAL SIGNS: Temperature is 99, pulse 81, respirations 18, O2 sats 98% on room air, blood pressure 137/80. LUNGS: Clear. CARDIAC: Regular rhythm. ABDOMEN: Soft and nontender. SKIN/EXTREMITIES: Display no edema, clubbing, cyanosis. NEUROLOGICAL: Intact. ASSESSMENT: 1. Wernicke encephalopathy, stable with behavioral disturbance controlled with Seroquel 75 twice daily. 2. Seizure disorder, controlled with Dilantin 300 mg daily. 3. Malnutrition, resolved. 4. Deconditioning improving daily. PLAN: 1. Continue supportive care. Continue Dilantin for seizure prophylaxis. 2. Continue Seroquel for control of aberration. 3. Discussed management placement with administration. Job ID: [id number]
--- NOTE | 2019-01-17 22:30 | PRG ---
DATE OF SERVICE: 01/16/2019 SUBJECTIVE: The patient feels well. He is up in his chair, asking when he is going to get out of the hospital, but still occasionally confused and agitated. OBJECTIVE: VITAL SIGNS: Blood pressure is 120/76, temperature 98, pulse 83, respirations 18, and O2 sats 96% on room air. LUNGS: Clear. CARDIAC: Shows regular rhythm. ABDOMEN: Soft and nontender. SKIN/EXTREMITIES: Show no edema. NEUROLOGIC: Shows no focal findings. ASSESSMENT: 1. Wernicke's encephalopathy with behavioral disturbance, controlled on Seroquel 75 twice daily. 2. Seizure disorder, controlled on Dilantin 300 daily. 3. Malnutrition, resolved. 4. Deconditioning, improving daily, but with refusal of PT. PLAN: 1. Continue Seroquel for control of agitation. 2. Continue Dilantin for control of seizures. 3. Continue to monitor nutrition. 4. Continue to get up out of the chair and bed safely as much as possible. Job ID: [id number]
--- NOTE | 2019-01-17 22:43 | PRG ---
DATE OF SERVICE: 01/17/2019 SUBJECTIVE: The patient feels well, up in the nurses' station, visiting with the nurses, less agitated, no distress. OBJECTIVE: VITAL SIGNS: Shows blood pressure 142/80, temperature is 98.9, pulse 85, respirations 18, O2 sats 96% on room air. LUNGS: Clear. CARDIAC: Shows regular rhythm. ABDOMEN: Soft and nontender. SKIN/EXTREMITIES: Display no edema, clubbing, cyanosis. NEUROLOGICAL: Shows no focal findings. ASSESSMENT: 1. Stable Wernicke encephalopathy with stable behavioral disturbance on Seroquel. 2. Seizure disorder, controlled with Dilantin. 3. Malnutrition, resolved. 4. Deconditioning, persistent, but improving. PLAN: 1. Obtain Dilantin level, CBC and comprehensive metabolic in the a.m. 2. Continue Dilantin 300 daily. 3. Continue Seroquel 75 twice daily. 4. Discussed placement again with administration. Job ID: [id number]
[2019-01-18 05:27] LABS: #Basophils 0.1 thou/uL (0.0-0.2); #Eosinphils 0.6 thou/uL (0.0-0.7); #Monocytes 1.1 thou/uL (0.11-0.59); #Neutrophils 5.2 thou/uL (1.40-6.50); %Basophils 0.9 % (0.0-1.0); %Eosinophils 6.6 % (0.0-10.0); %Lymphocytes 21.9 % (21.0-51.0); %Monocytes 11.9 % (0.0-10.0); %Neutrophils 58.7 % (42.0-75.0); Hemoglobin 12.4 g/dL (14.0-18.0); Mean Corpuscular HGB CONC 32.5 g/dL (32.0-36.0); Mean Corpuscular Hemoglobin 28.5 pg (27.0-31.0); Mean Corpuscular Volume 87.7 fL (78.0-98.0); Platelet Count 238 thou/uL (130-400); RBC Distribution Width 12.6 % (11.5-14.5); Red Blood Cell (RBC) Count 4.37 mill/uL (4.70-6.10); White Blood Cell (WBC) Count 8.9 thou/uL (4.8-10.8)
[2019-01-18 05:41] LABS: ALT (SGPT) 29 U/L (8-55); AST (SGOT) 20 U/L (5-34); Albumin 3.5 g/dL (3.4-4.8); Alkaline Phosphatase 115 U/L (40-150); Anion Gap 12 mmol/L (10-20); BUN (Urea Nitrogen) 12 mg/dL (8.4-25.7); Bilirubin, Total 0.2 mg/dL (0.2-1.2); Calc. Creatinine Clearance 106 mL/min (70-130); Calcium 9.5 mg/dL (7.8-10.44); Carbon Dioxide 24 mmol/L (23-31); Chloride 105 mmol/L (98-107); Estimated GFR-MDRD Greater than 90; Globulin 2.6 g/dL (2.4-3.5); Glucose 96 mg/dL (80-115); Potassium 3.9 mmol/L (3.5-5.1); Protein, Total 6.1 g/dL (5.8-8.1); Sodium 137 mmol/L (136-145)
[2019-01-18] MEDS: Sodium Chloride 0.65% Nasal 44 ML BOT EA NARE PRN ×3 (09:03→21:33)
[2019-01-18] MEDS: Loratadine 10 MG TAB PO PRN (09:04)
[2019-01-18] MEDS: Nicotine 21 MG PATCH TD SCH (09:04)
[2019-01-18] MEDS: Folic Acid 1 MG TAB PO SCH (09:04)
[2019-01-18] MEDS: Thiamine 100 MG TAB PO SCH (09:04)
[2019-01-18] MEDS: Calcium Carbonate 500 MG ChewTAB PO SCH (16:52)
[2019-01-19] MEDS: Sodium Chloride 0.65% Nasal 44 ML BOT EA NARE PRN ×2 (08:55→21:33)
[2019-01-19] MEDS: Folic Acid 1 MG TAB PO SCH (08:56)
[2019-01-19] MEDS: Calcium Carbonate 500 MG ChewTAB PO SCH ×3 (08:56→17:25)
[2019-01-19] MEDS: Nicotine 21 MG PATCH TD SCH (08:56)
[2019-01-19] MEDS: Thiamine 100 MG TAB PO SCH (08:56)
[2019-01-19] MEDS: Loratadine 10 MG TAB PO PRN (08:56)
[2019-01-20] MEDS: Calcium Carbonate 500 MG ChewTAB PO SCH ×3 (08:49→16:26)
[2019-01-20] MEDS: Thiamine 100 MG TAB PO SCH (08:49)
[2019-01-20] MEDS: Folic Acid 1 MG TAB PO SCH (08:49)
[2019-01-20] MEDS: Nicotine 21 MG PATCH TD SCH (08:49)
[2019-01-20] MEDS: Loratadine 10 MG TAB PO PRN (08:49)
--- NOTE | 2019-01-20 15:43 | PRG ---
DATE OF SERVICE: 01/20/2019 SUBJECTIVE: Mr. Eldridge is doing the same. Resting comfortably. Denies any complaints. Still waiting on placement. OBJECTIVE: VITAL SIGNS: He is afebrile. Heart rate 85, respirations 18, oxygen saturation 99% on room air, blood pressure 156/92. CARDIOVASCULAR: S1 and S2 plus. RESPIRATORY: Normal vesicular breath sounds. ABDOMEN: Soft, nontender. Bowel sounds heard in all quadrants. EXTREMITIES: Without cyanosis or clubbing. CENTRAL NERVOUS SYSTEM: Persistent encephalopathy. IMPRESSION: 1. Alcoholic encephalopathy, stable. 2. Allergic rhinosinusitis. 3. Improving protein calorie malnutrition. PLAN: 1. Continue current medications. 2. Nutritional support. 3. Placement. 4. Routine laboratory values. 5. DVT and stress ulcer prophylaxis. 6. Decubitus precautions. Job ID: [id number]
[2019-01-21] MEDS: Calcium Carbonate 500 MG ChewTAB PO SCH ×3 (08:29→17:56)
[2019-01-21] MEDS: Folic Acid 1 MG TAB PO SCH (08:30)
[2019-01-21] MEDS: Thiamine 100 MG TAB PO SCH (08:30)
[2019-01-21] MEDS: Nicotine 21 MG PATCH TD SCH (08:30)
[2019-01-21] MEDS: cloNIDine 0.1mg/24 Hour PATCH TD SCH (17:59)
[2019-01-22] MEDS: Calcium Carbonate 500 MG ChewTAB PO SCH ×3 (08:11→17:51)
[2019-01-22] MEDS: Thiamine 100 MG TAB PO SCH (08:12)
[2019-01-22] MEDS: Folic Acid 1 MG TAB PO SCH (08:13)
[2019-01-22] MEDS: Nicotine 21 MG PATCH TD SCH (08:18)
[2019-01-23] MEDS: Sodium Chloride 0.65% Nasal 44 ML BOT EA NARE PRN (09:13)
[2019-01-23] MEDS: Nicotine 21 MG PATCH TD SCH (09:14)
[2019-01-23] MEDS: Calcium Carbonate 500 MG ChewTAB PO SCH ×3 (09:14→16:47)
[2019-01-23] MEDS: Folic Acid 1 MG TAB PO SCH (09:15)
[2019-01-23] MEDS: Thiamine 100 MG TAB PO SCH (09:15)
[2019-01-23] MEDS: Loratadine 10 MG TAB PO PRN (09:16)
--- NOTE | 2019-01-24 08:09 | PRG ---
DATE OF SERVICE: 01/21/2019 SUBJECTIVE: The patient is less agitated, sitting up at the nurses station, lying in the bed. No complaints. Eating well and getting stronger, but still not cooperating with therapy. OBJECTIVE: VITAL SIGNS: Show temperature is 98.1, pulse 82, respirations 20, O2 saturations 98% on room air, blood pressure 129/82. LUNGS: Clear. CARDIAC: Showed regular rhythm. ABDOMEN: Soft and nontender. NEUROLOGIC: Intact. ASSESSMENT: 1. Stable Wernicke encephalopathy with controlled behavioral disturbances. 2. Stable seizure disorder, on Dilantin. 3. Placement. Difficulty with business systems analyst awarding placement to Adult Protective Services, but Adult Protective Services is still not arranging for placement of the patient. PLAN: Discussed with business systems analyst and Adult Protective Services. Continue protective care. Continue to monitor for recurrent seizures. Continue medication for behavioral disturbance. Job ID: [id number]
[2019-01-24] MEDS: Calcium Carbonate 500 MG ChewTAB PO SCH ×3 (08:54→16:59)
--- NOTE | 2019-01-24 08:58 | PRG ---
DATE OF SERVICE: SUBJECTIVE: The patient feels well, sitting up in the bed, very cheerful, visiting with sitters. States that he has been walking to the bathroom. The patient does agree to walk with sitters in the [place]. He is eating well. He is getting stronger. OBJECTIVE: VITAL SIGNS: Temperature is 98.8, pulse 78, respirations 18, O2 sats 97% on room air, and blood pressure 139/92. LUNGS: Clear. CARDIAC: Regular rhythm. ASSESSMENT: 1. Stable Wernicke encephalopathy with behavioral disturbance, controlled with medication. 2. Stable seizure disorder, on Dilantin. We will check Dilantin level in the a.m. 3. Improving deconditioning, and we will have the patient up and walk with sitters in the [place]. 4. Placement problem. Awaiting decision of [facility] and Adult Protective Services. Job ID: [id number]
[2019-01-24] MEDS: Loratadine 10 MG TAB PO PRN (09:01)
[2019-01-24] MEDS: Folic Acid 1 MG TAB PO SCH (09:01)
[2019-01-24] MEDS: Thiamine 100 MG TAB PO SCH (09:01)
[2019-01-24] MEDS: Nicotine 21 MG PATCH TD SCH (09:02)
--- NOTE | 2019-01-24 09:23 | PRG ---
DATE OF SERVICE: 01/22/2019 SUBJECTIVE: The patient in his room, resting, in no complaints, cheerful. OBJECTIVE: LUNGS: Clear. CARDIAC: Shows regular rhythm. ABDOMEN: Soft and nontender. NEUROLOGIC: Shows no focal findings. ASSESSMENT: 1. Stable Wernicke encephalopathy with stable behavioral disturbance, on medication. 2. Stable seizure disorder, on Dilantin. 3. Placement difficulty, awaiting decision from Adult Protective Services. PLAN: Continue to monitor for behavioral disturbances. Continue to monitor for seizures. Continue to stress Adult Protective Services to arrange placement. Job ID: [id number]
--- NOTE | 2019-01-24 09:24 | PRG ---
DATE OF SERVICE: 01/23/2019 SUBJECTIVE: The patient is sitting up in the chair, pleasant, discussing with nurses. No complaints. OBJECTIVE: VITAL SIGNS: Temperature is 98.1, pulse 82, respirations 18, O2 saturations 97% on room air, and blood pressure 139/79. LUNGS: Clear. Cardiac: Regular rhythm. ABDOMEN: Soft and nontender. SKIN/EXTREMITIES: Display no edema, clubbing, or cyanosis. NEUROLOGIC: No focal findings. ASSESSMENT: 1. Stable seizure disorder, on Dilantin and we will check Dilantin level in 2 days. 2. Stable Wernicke encephalopathy with behavioral disturbance, controlled on medication, now sleeping well with no agitation per nurses. 3. Placement disorder. Awaiting decision between the Adult Protective Services and job recruiter who have disagreed on placement. Job ID: [id number]
[2019-01-25] MEDS: Calcium Carbonate 500 MG ChewTAB PO SCH ×3 (09:14→17:31)
[2019-01-25] MEDS: Nicotine 21 MG PATCH TD SCH (09:14)
[2019-01-25] MEDS: Thiamine 100 MG TAB PO SCH (09:14)
[2019-01-25] MEDS: Folic Acid 1 MG TAB PO SCH (09:14)
[2019-01-25] MEDS: Sodium Chloride 0.65% Nasal 44 ML BOT EA NARE PRN ×3 (09:15→20:36)
[2019-01-26] MEDS: Calcium Carbonate 500 MG ChewTAB PO SCH ×3 (08:57→17:42)
[2019-01-26] MEDS: Folic Acid 1 MG TAB PO SCH (08:58)
[2019-01-26] MEDS: Nicotine 21 MG PATCH TD SCH (08:58)
[2019-01-26] MEDS: Thiamine 100 MG TAB PO SCH (08:58)
--- NOTE | 2019-01-26 19:13 | PRG ---
DATE OF SERVICE: 01/26/2019 SUBJECTIVE: The patient feels well. No complaints. Had no seizures and eating well. OBJECTIVE: VITAL SIGNS: Show temperature is 98.4, pulse 84, respirations 18, O2 sats 98% on room air, and blood pressure 137/79. LUNGS: Clear. CARDIAC: Regular rhythm. ABDOMEN: Soft and nontender. ASSESSMENT: 1. Stable Wernicke encephalopathy, resolving. 2. Deconditioning, resolved malnutrition. 3. Seizure disorder with subtherapeutic Dilantin level. PLAN: 1. Dilantin level in the a.m. 2. Continue to await placement from [employer] and [facility]PS. Job ID: [id number]
[2019-01-26] MEDS: Sodium Chloride 0.65% Nasal 44 ML BOT EA NARE PRN (21:26)
[2019-01-27] MEDS: Calcium Carbonate 500 MG ChewTAB PO SCH ×3 (08:51→18:28)
[2019-01-27] MEDS: Nicotine 21 MG PATCH TD SCH (08:51)
[2019-01-27] MEDS: Thiamine 100 MG TAB PO SCH (08:53)
[2019-01-27] MEDS: Folic Acid 1 MG TAB PO SCH (08:54)
--- NOTE | 2019-01-27 08:54 | PRG ---
DATE OF SERVICE: SUBJECTIVE: The patient feels well. No complaints. He is sleeping well last night up in the room. No agitation. No seizure activity. OBJECTIVE: VITAL SIGNS: Temperature 98.3, pulse 85, respirations 20, O2 sats 99% on room air, and blood pressure 149/90. LUNGS: Clear. CARDIAC: Regular rhythm. ABDOMEN: Soft and nontender. NEUROLOGICAL: Intact. LABORATORY DATA: Repeat Dilantin level still subtherapeutic at 9.2 this morning, on 300 mg of Dilantin every morning. ASSESSMENT: 1. Stable Wernicke encephalopathy with behavioral disturbance, controlled on Seroquel. 2. Seizure disorder. No recent/recurrent seizures, but now with subtherapeutic Dilantin level x2. We will increase Dilantin to 400 mg every day and stress the nurses need to give on empty stomach. 3. Deconditioning, resolved. 4. Malnutrition, resolved. PLAN: 1. Await placement by [facility] and adult protective services. 2. Increase Dilantin to 400 mg every morning and repeat Dilantin level tomorrow. Job ID: [id number]
[2019-01-27] MEDS: Sodium Chloride 0.65% Nasal 44 ML BOT EA NARE PRN (20:17)
[2019-01-28] MEDS: Thiamine 100 MG TAB PO SCH (08:37)
[2019-01-28] MEDS: Folic Acid 1 MG TAB PO SCH (08:37)
[2019-01-28] MEDS: Calcium Carbonate 500 MG ChewTAB PO SCH ×3 (08:37→16:24)
[2019-01-28] MEDS: Nicotine 21 MG PATCH TD SCH (08:38)
--- NOTE | 2019-01-28 11:24 | PRG ---
DATE OF SERVICE: 01/25/2019 SUBJECTIVE: The patient is lying in bed, resting with no complaints, and eating well. No difficulties. OBJECTIVE: VITAL SIGNS: Show temperature is 97.8, pulse 81, respirations 20, O2 sats 98% on room air, and blood pressure is 143/77. NEUROLOGIC: Shows no focal findings. LUNGS: Clear. CARDIAC: Regular rhythm. Recent Dilantin level is subtherapeutic at 8.7. ASSESSMENT: 1. Stable Wernicke encephalopathy with controlled behavioral agitation. 2. Seizure disorder with subtherapeutic Dilantin level. We will stress need to take this on empty stomach and repeat level in 2 days. May need to increase again. 3. Improving deconditioning. 4. Resolved malnutrition. PLAN: 1. Stress need to take Dilantin on empty stomach. N.p.o. after midnight. 2. Repeat Dilantin level in 2 days. Job ID: [id number]
[2019-01-28] MEDS: cloNIDine 0.1mg/24 Hour PATCH TD SCH (17:33)
--- NOTE | 2019-01-28 17:54 | PRG ---
DATE OF SERVICE: 01/28/2019 SUBJECTIVE: The patient is sitting on bed, eating well, finished his meals, going to the bathroom, doing ADLs without any assistance. He has had no agitation and no seizure disorder. OBJECTIVE: VITAL SIGNS: Show temperature is 98, pulse 74, respirations 16, O2 sats 94% on room air, and blood pressure is 132/82. LUNGS: Clear. CARDIAC: Regular rhythm. ABDOMEN: Soft and nontender. NEUROLOGIC: Shows no focal findings. Dilantin level is therapeutic at 10.7 on 400 mg every morning. ASSESSMENT: 1. Wernicke encephalopathy with behavioral disturbance, controlled on Seroquel 75 twice daily. 2. Seizure disorder, controlled with Dilantin with therapeutic level at this time, on 400 mg daily. 3. Hypertension, controlled to goal. 4. Nicotine abuse, stable. PLAN: 1. Decrease the nicotine patch to 14. 2. Continue Dilantin 400 mg daily and check Dilantin level. 3. Continue Seroquel 75 twice daily. 4. Await placement decision by [facility] and magisterial district judge. Job ID: [id number]
[2019-01-28] MEDS: Nicotine 14 MG PATCH TOP SCH (20:06)
[2019-01-28] MEDS: Sodium Chloride 0.65% Nasal 44 ML BOT EA NARE PRN (21:27)
[2019-01-29] MEDS: Thiamine 100 MG TAB PO SCH (09:00)
[2019-01-29] MEDS: Calcium Carbonate 500 MG ChewTAB PO SCH ×3 (09:00→17:31)
[2019-01-29] MEDS: Loratadine 10 MG TAB PO PRN (09:00)
[2019-01-29] MEDS: Folic Acid 1 MG TAB PO SCH (09:00)
[2019-01-29] MEDS ORDERED: Haloperidol Lactate 5 MG/ML VIAL IM SCH (10:45)
[2019-01-29] MEDS: Nicotine 14 MG PATCH TOP SCH (17:37)
[2019-01-30] MEDS: Calcium Carbonate 500 MG ChewTAB PO SCH ×3 (08:50→17:16)
[2019-01-30] MEDS: Thiamine 100 MG TAB PO SCH (08:52)
[2019-01-30] MEDS: Folic Acid 1 MG TAB PO SCH (08:54)
[2019-01-30] MEDS: Nicotine 14 MG PATCH TOP SCH (18:19)
--- NOTE | 2019-01-30 19:32 | PRG ---
DATE OF SERVICE: 01/29/2019 SUBJECTIVE: The patient became agitated today and then had absence seizure, unresponsiveness, and now has returned back to normal, although he is slightly confused. Laboratories have shown that his Dilantin level was 9.8, and he has been given an extra 200 mg of Dilantin. OBJECTIVE: VITAL SIGNS: Show temperature 97.9, pulse 79, respirations 20, O2 saturations 97% on room air, blood pressure 116/73. LUNGS: Clear. CARDIAC: Showed regular rhythm. ABDOMEN: Soft and nontender. SKIN/EXTREMITIES: Play no edema, clubbing, or cyanosis. ASSESSMENT AND PLAN: 1. Wernicke encephalopathy, recurrent agitation today, possibly due to recurrent seizures, now back to baseline. 2. Recurrent seizure secondary to subclinical Dilantin level. We will check again in 2 days after having Dilantin changed to 400 mg at night to ensure that he is taking this on empty stomach. Job ID: [id number]
--- NOTE | 2019-01-31 07:27 | PRG ---
DATE OF SERVICE: 01/30/2019 SUBJECTIVE: The patient feels well today with no agitation and no seizure activity. OBJECTIVE: VITAL SIGNS: Shows his temperature is 98.5, pulse 72, respirations 16, O2 sats 100% on room air, and blood pressure 133/85. LUNGS: Clear. CARDIAC: Showed regular rhythm. ABDOMEN: Soft and nontender. ASSESSMENT: 1. Wernicke encephalopathy, stable. 2. Seizure disorder controlled with Dilantin, but we will switch to nighttime to ensure ingesting on an empty stomach. PLAN: Change Dilantin to 300 mg at 8:00 p.m. every night with Dilantin level to be given tomorrow at 7:00 p.m. The patient has had Dilantin today and we will give half dose of Dilantin in the morning as levels may be low otherwise. Job ID: [id number]
[2019-01-31] MEDS: Thiamine 100 MG TAB PO SCH (08:49)
[2019-01-31] MEDS: Calcium Carbonate 500 MG ChewTAB PO SCH ×3 (08:52→17:46)
[2019-01-31] MEDS: Folic Acid 1 MG TAB PO SCH (08:52)
[2019-01-31] MEDS ORDERED: Haloperidol Lactate 5 MG/ML VIAL IM SCH (12:15)
[2019-01-31] MEDS: Nicotine 14 MG PATCH TOP SCH (17:47)
[2019-02-01] MEDS: Calcium Carbonate 500 MG ChewTAB PO SCH ×3 (09:25→17:45)
[2019-02-01] MEDS: Thiamine 100 MG TAB PO SCH (09:26)
[2019-02-01] MEDS: Sodium Chloride 0.65% Nasal 44 ML BOT EA NARE PRN (09:26)
[2019-02-01] MEDS: Folic Acid 1 MG TAB PO SCH (09:26)
[2019-02-01] MEDS: Loratadine 10 MG TAB PO PRN (09:26)
--- NOTE | 2019-02-01 09:55 | PRG ---
DATE OF SERVICE: 01/31/2019 SUBJECTIVE: The patient still agitated at times, but no further seizures. He is eating well, still occasionally confused. OBJECTIVE: VITAL SIGNS: Shows a blood pressure is 126/75, temperature is 97.6, pulse 78, respirations 18, O2 saturations 99% on room air. LUNGS: CLEAR. CARDIAC: Showed regular rhythm. ABDOMEN: Soft and nontender. LABORATORY DATA: Shows Dilantin level 13.2 today, being switched to nighttime Dilantin. ASSESSMENT: 1. Wernicke encephalopathy with increasing agitation, but the Seroquel has been decreased back to 50 and we will check on reason why, increased back up to 75 twice daily. 2. Recurrent seizures, possibly due to subtherapeutic Dilantin level secondary to not being given Dilantin on empty stomach. 3. Malnutrition, resolved. 4. Deconditioning, resolved. PLAN: 1. Continue Dilantin 300 at night and check Dilantin trough level prior to dose. 2. Restart Seroquel 75 twice daily tomorrow and give 5 mg of Haldol IM daily p.r.n. agitation. Job ID: [id number]
--- NOTE | 2019-02-01 10:05 | PRG ---
DATE OF SERVICE: 02/01/2019 SUBJECTIVE: The patient is awake, somewhat agitated. He states he did not sleep well last night, somewhat confused last night. He has had no further seizures. Has been eating well. OBJECTIVE: VITAL SIGNS: Show blood pressure is 111/67, temperature 98, pulse 74, respirations 18, and O2 saturations 97% on room air. LUNGS: Clear. CARDIAC: Examination showed regular rhythm. LABORATORY DATA: Show Dilantin level still therapeutic last night at 0700 hours at 12.0, prior to 0800 hours dose of 300 mg of Dilantin. ASSESSMENT: 1. Wernicke encephalopathy and increased agitation, possibly due to inadvertent decrease in dose of Seroquel and now back on 75 twice daily. We will monitor with p.r.n. Maureen. 2. Recurrent seizures, possibly due to Dilantin subtherapeutic level secondary to being given on a full stomach and we will continue to monitor on nighttime dose. PLAN: 1. Dilantin 300 mg at 0800 hours every night with trough level prior to this. 2. Continue Seroquel 75 twice daily and may need to increase to 100 twice daily. 3. Await decision of Adult Protective Services. Job ID: [id number]
[2019-02-01] MEDS: Nicotine 14 MG PATCH TOP SCH (17:51)
[2019-02-02] MEDS: Thiamine 100 MG TAB PO SCH (08:25)
[2019-02-02] MEDS: Sodium Chloride 0.65% Nasal 44 ML BOT EA NARE PRN (08:25)
[2019-02-02] MEDS: Calcium Carbonate 500 MG ChewTAB PO SCH ×3 (08:25→17:20)
[2019-02-02] MEDS: Acetaminophen 325 MG TAB PO PRN (08:25)
[2019-02-02] MEDS: Loratadine 10 MG TAB PO PRN (08:25)
[2019-02-02] MEDS: Folic Acid 1 MG TAB PO SCH (08:25)
--- NOTE | 2019-02-02 09:07 | PRG ---
DATE OF SERVICE: 02/02/2019 SUBJECTIVE: Mr. 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 He does not recognize me although seen every 2 to 3 weeks. The patient also does not remember Dr. Ruggiero asked to see him daily. Unfortunately, he has been in the hospital for multiple days. Awaiting the court system to wilfredo him guardianship, so we can place him in a facility. The patient continues with confusion this morning. He is not sure exactly where he is or what he is doing here. OBJECTIVE: VITAL SIGNS: Reveal blood pressure this morning 114/78, pulse 74 to 78, respirations 18, O2 saturation 96% to 97% on room air. T-max 98.4. GENERAL: This is a well-developed, well-nourished, very thin white male, in no apparent distress at this time. HEENT: Reveals normocephalic and nontraumatic cranium. Pupils equally round and reactive. Extraocular movements are intact. Nose and throat are dry this morning. NECK: Supple without masses, nodes, or bruits. CHEST: Clear to auscultation. No rales. No rhonchi. No wheezes or cough heard. Breath sounds are noted to be distant. HEART: Reveals a regular rate and rhythm without murmurs, gallops, or rubs. ABDOMEN: Scaphoid, soft, nontender without organomegaly. Normal bowel sounds are noted in all 4 quadrants. No rebound or guarding is noted. : Deferred. EXTREMITIES: Reveal no clubbing, cyanosis, or edema. NEURO: The patient is oriented to person, but not place or time. ASSESSMENT: 1. Wernicke-Korsakoff encephalopathy. 2. Seizure disorder, better controlled on Dilantin. 3. Resolving aspiration pneumonia. 4. Severe deconditioning. 5. Malnutrition. 6. Confusion. PLAN: 1. Continue supportive care. 2. Continue present medication. 3. Encourage the patient to eat well. 4. Awaiting guardianship to be granted by the court. 5. Awaiting placement. Job ID: [id number]
[2019-02-02] MEDS ORDERED: Haloperidol Lactate 5 MG/ML VIAL IM SCH (14:30)
[2019-02-02] MEDS: Nicotine 14 MG PATCH TOP SCH (18:01)
[2019-02-02] MEDS: Ibuprofen 200 MG TAB PO PRN (18:05)
[2019-02-02] MEDS: Melatonin 3 MG TAB PO PRN (20:28)
[2019-02-03] MEDS: Calcium Carbonate 500 MG ChewTAB PO SCH ×3 (08:42→18:01)
[2019-02-03] MEDS: Loratadine 10 MG TAB PO PRN (08:42)
[2019-02-03] MEDS: Thiamine 100 MG TAB PO SCH (08:42)
[2019-02-03] MEDS: Folic Acid 1 MG TAB PO SCH (08:42)
[2019-02-03] MEDS: Sodium Chloride 0.65% Nasal 44 ML BOT EA NARE PRN (08:43)
--- NOTE | 2019-02-03 09:28 | PRG ---
DATE OF SERVICE: 02/03/2019 SUBJECTIVE: Mr. 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 He does not recognize me although I saw him yesterday. He does not remember Dr. Ruggiero although he has been seeing him for the last 6 months. The patient continues with confusion this morning. He became very agitated yesterday. He had to have a 2 mg shot of Haldol. Nurses states he is becoming a little bit more agitated every day and may need to be placed on Haldol routinely. OBJECTIVE: VITAL SIGNS: Today reveal blood pressure 140/87, pulse 76 to 81, respirations 18 to 20, O2 saturation 97% to 98% on room air, T-max 97.8. GENERAL: This is a well-developed, well-nourished, thin, white male, in no apparent distress. He continues with confusion and was more agitated yesterday afternoon. HEENT: Reveals normocephalic and nontraumatic cranium. Pupils are equally round and reactive. Extraocular movements are intact. Nose and throat are slightly dry, but clear. NECK: Supple without masses, nodes, or bruits. CHEST: Clear to auscultation. No rales. No rhonchi. No wheezes or cough is heard. HEART: Reveals a regular rate and rhythm without murmurs, gallops, or rubs. ABDOMEN: Scaphoid, soft, and nontender without organomegaly. Normal bowel sounds are noted. No rebound or guarding is noted. : Deferred. EXTREMITIES: Reveal no clubbing, cyanosis, or edema. NEUROLOGIC: The patient is oriented to person, but not place or time. ASSESSMENT: 1. Wernicke-Korsakoff encephalopathy. 2. Seizure disorder, better controlled on Dilantin. 3. Resolving aspiration pneumonia. 4. Severe deconditioning. 5. Malnutrition. 6. Confusion. PLAN: 1. Continue supportive care. 2. Continue present medications. 3. Encourage the patient to eat well. 4. Awaiting guardianship to be granted by the court. 5. Awaiting placement. Job ID: [id number]
[2019-02-03] MEDS ORDERED: Haloperidol Lactate 5 MG/ML VIAL IM SCH (10:45)
[2019-02-03] MEDS: Nicotine 14 MG PATCH TOP SCH (18:02)
[2019-02-04] MEDS: Calcium Carbonate 500 MG ChewTAB PO SCH ×3 (08:50→18:29)
[2019-02-04] MEDS: Folic Acid 1 MG TAB PO SCH (08:51)
[2019-02-04] MEDS: Thiamine 100 MG TAB PO SCH (08:52)
--- NOTE | 2019-02-04 17:17 | PRG ---
DATE OF SERVICE: 02/04/2019 SUBJECTIVE: The patient feels well, resting in bed. No further agitation this weekend. He has been eating well. He is moving around and has had no further seizures. OBJECTIVE: VITAL SIGNS: Show his blood pressure is 122/73, temperature is 98, pulse 75, respirations 16, O2 saturations 94% on room air. LUNGS: Clear. CARDIAC: Showed regular rhythm. ABDOMEN: Soft and nontender. LABORATORY DATA: His Dilantin level has not been checked over the weekend and will be repeated. ASSESSMENT: 1. Wernicke encephalopathy with behavioral disturbances, controlled on Seroquel at a dose of 75 twice daily. 2. Seizure disorder controlled with Dilantin patch 300 mg nightly. PLAN: 1. Check Dilantin level tonight. 2. Continue Seroquel 75 twice daily. 3. Follow up with Case Management about discharge placement. Job ID: [id number]
[2019-02-04] MEDS: cloNIDine 0.1mg/24 Hour PATCH TD SCH (18:30)
[2019-02-04] MEDS: Nicotine 14 MG PATCH TOP SCH (18:30)
[2019-02-04] MEDS ORDERED: Haloperidol Lactate 5 MG/ML VIAL IM SCH (21:00)
[2019-02-04] MEDS: Haloperidol 5 MG TAB PO SCH (21:32)
[2019-02-05] MEDS: Haloperidol 5 MG TAB PO SCH (00:26)
[2019-02-05] MEDS: Calcium Carbonate 500 MG ChewTAB PO SCH ×3 (09:13→17:19)
[2019-02-05] MEDS: Thiamine 100 MG TAB PO SCH (09:13)
[2019-02-05] MEDS: Ibuprofen 200 MG TAB PO PRN (09:14)
[2019-02-05] MEDS: Folic Acid 1 MG TAB PO SCH (09:14)
[2019-02-05] MEDS: Nicotine 14 MG PATCH TOP SCH (17:20)
--- NOTE | 2019-02-05 19:04 | PRG ---
DATE OF SERVICE: 02/05/2019 SUBJECTIVE: The patient feels well, lying in the bed, sleeping, but has been agitated through the night requiring oral Haldol at night. OBJECTIVE: VITAL SIGNS: Today shows blood pressure is 157/84, temperature is 98, pulse 75, respirations 16, O2 sats 97% on room air. LUNGS: Clear. CARDIAC: Showed regular rhythm. ABDOMEN: Soft and nontender. SKIN/EXTREMITIES: Display no edema, clubbing, or cyanosis. NEUROLOGICAL: Shows no focal findings. LABORATORY DATA: Dilantin level is barely therapeutic at 11.4. ASSESSMENT: 1. Stable Wernicke encephalopathy with behavioral disturbance, requiring Seroquel 75 three times daily during the day and Haldol 5 mg at night to help rest. We will continue this. 2. Seizure disorder with barely therapeutic Dilantin level and breakthrough seizures periodically, on 300 mg daily. We will increase to 350 mg daily. 3. Placement problem. Awaiting decision of Adult Protective Services. Job ID: [id number]
[2019-02-06] MEDS: Calcium Carbonate 500 MG ChewTAB PO SCH ×3 (08:44→17:57)
[2019-02-06] MEDS: Thiamine 100 MG TAB PO SCH (08:45)
[2019-02-06] MEDS: Loratadine 10 MG TAB PO PRN (08:45)
[2019-02-06] MEDS: Folic Acid 1 MG TAB PO SCH (08:45)
[2019-02-06] MEDS: Sodium Chloride 0.65% Nasal 44 ML BOT EA NARE PRN (08:45)
[2019-02-06] MEDS: Nicotine 14 MG PATCH TOP SCH (18:04)
--- NOTE | 2019-02-06 18:37 | PRG ---
DATE OF SERVICE: 02/06/2019 SUBJECTIVE: The patient is sitting up in a chair after supper, pleasant, cheerful, but confused. He states he still not sleeping at night despite taking Seroquel and Haldol. OBJECTIVE: VITAL SIGNS: Shows temperature 98.8, pulse 77, respirations 16, O2 saturations 99% on room air, blood pressure 134/83. Dilantin has been increased to 350 today with level pending tonight. NEUROLOGIC: Shows no focal findings. LUNGS: Clear. CARDIAC: Regular rhythm. ASSESSMENT: 1. Wernicke encephalopathy with behavioral disturbances, requiring Seroquel 75 three times daily and Haldol p.r.n. at night. 2. Seizure disorder, controlled with Dilantin 350 daily with Dilantin level pending. 3. Placement difficulty. 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 Job ID: [id number]
[2019-02-06] MEDS ORDERED: Haloperidol 5 MG TAB PO SCH (18:45)
[2019-02-06] MEDS: Haloperidol 5 MG TAB PO SCH (20:21)
[2019-02-07] MEDS: Calcium Carbonate 500 MG ChewTAB PO SCH ×3 (08:45→17:30)
[2019-02-07] MEDS: Thiamine 100 MG TAB PO SCH (08:46)
[2019-02-07] MEDS: Sodium Chloride 0.65% Nasal 44 ML BOT EA NARE PRN ×3 (08:46→22:24)
[2019-02-07] MEDS: Folic Acid 1 MG TAB PO SCH (08:46)
[2019-02-07] MEDS: Nicotine 14 MG PATCH TOP SCH (18:00)
[2019-02-07] MEDS: Haloperidol 5 MG TAB PO SCH (20:36)
[2019-02-08] MEDS: Calcium Carbonate 500 MG ChewTAB PO SCH ×3 (08:42→17:51)
[2019-02-08] MEDS: Thiamine 100 MG TAB PO SCH (08:43)
[2019-02-08] MEDS: Folic Acid 1 MG TAB PO SCH (08:43)
[2019-02-08] MEDS: Sodium Chloride 0.65% Nasal 44 ML BOT EA NARE PRN (13:41)
[2019-02-08] MEDS: Nicotine 14 MG PATCH TOP SCH ×2 (17:51→17:52)
--- NOTE | 2019-02-08 17:53 | PRG ---
DATE OF SERVICE: 02/07/2019 SUBJECTIVE: The patient is less agitated, still has intermittent episodes, was seen by [facility] and has not been approved for transfer to [facility] secondary to organic problem. OBJECTIVE: VITAL SIGNS: Temperature 98.6, pulse 76, respirations 20, O2 sats 96% on room air, blood pressure 131/76. ASSESSMENT: 1. Stable Wernicke encephalopathy with behavioral disturbance, still requiring Seroquel and Haldol occasionally. 2. Seizure disorder controlled with Dilantin. PLAN: 1. Continue to monitor closely for increased behavioral disturbances. 2. Arrange for discharge planning. Job ID: [id number]
[2019-02-08] MEDS: Haloperidol 5 MG TAB PO SCH (20:41)
[2019-02-09] MEDS: Calcium Carbonate 500 MG ChewTAB PO SCH ×3 (08:38→16:42)
[2019-02-09] MEDS: Thiamine 100 MG TAB PO SCH (08:39)
[2019-02-09] MEDS: Folic Acid 1 MG TAB PO SCH (08:39)
--- NOTE | 2019-02-09 16:16 | PRG ---
DATE OF SERVICE: 02/09/2019 SUBJECTIVE: Mr. Eldridge is doing the same. Denies any complaints. Resting comfortably. Discussed with nursing. OBJECTIVE: VITAL SIGNS: He is afebrile. Heart rate 67, respirations 16, oxygen saturation 99% on room air, and blood pressure 110/54. CARDIOVASCULAR: S1 and S2 plus. RESPIRATORY: Normal vesicular breath sounds. ABDOMEN: Soft, nontender. Bowel sounds heard in all quadrants. EXTREMITIES: Without cyanosis or clubbing. CENTRAL NERVOUS SYSTEM: Awake and responsive. Cranial nerves 2 through 12 intact. Generalized weakness. IMPRESSION: 1. Alcoholic encephalopathy. 2. Allergic rhinitis. 3. Improving protein calorie malnutrition. 4. Placement issues. PLAN: 1. Continue current medications. 2. Nutritional support. 3. DVT and stress ulcer prophylaxis. 4. Decubitus precautions. 5. Continue to work on placement. Job ID: [id number]
[2019-02-09] MEDS: Sodium Chloride 0.65% Nasal 44 ML BOT EA NARE PRN (16:45)
[2019-02-09] MEDS: Nicotine 14 MG PATCH TOP SCH (20:10)
[2019-02-09] MEDS: Haloperidol 5 MG TAB PO SCH (20:22)
[2019-02-10] MEDS: Calcium Carbonate 500 MG ChewTAB PO SCH ×3 (09:01→18:10)
[2019-02-10] MEDS: Thiamine 100 MG TAB PO SCH (09:02)
[2019-02-10] MEDS: Folic Acid 1 MG TAB PO SCH (09:02)
[2019-02-10 16:35] VITALS: BMI 21.4
[2019-02-10] MEDS: Nicotine 14 MG PATCH TOP SCH (18:10)
[2019-02-10] MEDS: Haloperidol 5 MG TAB PO SCH (21:19)
[2019-02-11] MEDS: Calcium Carbonate 500 MG ChewTAB PO SCH ×3 (08:56→17:34)
[2019-02-11] MEDS: Thiamine 100 MG TAB PO SCH (09:55)
[2019-02-11] MEDS: Folic Acid 1 MG TAB PO SCH (09:55)
[2019-02-11] MEDS: Acetaminophen 325 MG TAB PO PRN (11:45)
[2019-02-11] MEDS: Nicotine 14 MG PATCH TOP SCH (20:31)
[2019-02-11] MEDS: cloNIDine 0.1mg/24 Hour PATCH TD SCH (20:31)
[2019-02-11] MEDS: Haloperidol 5 MG TAB PO SCH (20:32)
[2019-02-12] MEDS: Folic Acid 1 MG TAB PO SCH (09:33)
[2019-02-12] MEDS: Thiamine 100 MG TAB PO SCH (09:33)
[2019-02-12] MEDS: Calcium Carbonate 500 MG ChewTAB PO SCH ×3 (09:33→17:50)
[2019-02-12] MEDS: Nicotine 14 MG PATCH TOP SCH (17:50)
[2019-02-12] MEDS: Haloperidol 5 MG TAB PO SCH (21:38)
[2019-02-13] MEDS: Calcium Carbonate 500 MG ChewTAB PO SCH ×3 (08:59→17:51)
[2019-02-13] MEDS: Thiamine 100 MG TAB PO SCH (08:59)
[2019-02-13] MEDS: Folic Acid 1 MG TAB PO SCH (08:59)
[2019-02-13] MEDS: Haloperidol 5 MG TAB PO PRN (11:19)
[2019-02-13] MEDS: Nicotine 14 MG PATCH TOP SCH (19:27)
[2019-02-13] MEDS: Haloperidol 5 MG TAB PO SCH (20:51)
[2019-02-14] MEDS: Calcium Carbonate 500 MG ChewTAB PO SCH ×3 (08:50→17:58)
[2019-02-14] MEDS: Thiamine 100 MG TAB PO SCH (08:50)
[2019-02-14] MEDS: Folic Acid 1 MG TAB PO SCH (08:52)
[2019-02-14] MEDS: Nicotine 14 MG PATCH TOP SCH (18:06)
[2019-02-14] MEDS: Haloperidol 5 MG TAB PO SCH (20:38)
[2019-02-15] MEDS: Acetaminophen 325 MG TAB PO PRN (07:51)
[2019-02-15] MEDS: Calcium Carbonate 500 MG ChewTAB PO SCH ×3 (07:53→18:32)
[2019-02-15] MEDS: Folic Acid 1 MG TAB PO SCH (08:55)
[2019-02-15] MEDS: Thiamine 100 MG TAB PO SCH (08:55)
[2019-02-15] MEDS: Ibuprofen 200 MG TAB PO PRN (16:35)
[2019-02-15] MEDS: Nicotine 14 MG PATCH TOP SCH (18:32)
[2019-02-15] MEDS: Haloperidol 5 MG TAB PO SCH (20:40)
[2019-02-16] MEDS: Sodium Chloride 0.65% Nasal 44 ML BOT EA NARE PRN (09:04)
[2019-02-16] MEDS: Thiamine 100 MG TAB PO SCH (09:05)
[2019-02-16] MEDS: Loratadine 10 MG TAB PO PRN (09:05)
[2019-02-16] MEDS: Folic Acid 1 MG TAB PO SCH (09:05)
[2019-02-16] MEDS: Calcium Carbonate 500 MG ChewTAB PO SCH ×3 (09:05→16:56)
[2019-02-16] MEDS: Nicotine 14 MG PATCH TOP SCH (17:22)
[2019-02-16] MEDS: Haloperidol 5 MG TAB PO SCH (20:57)
[2019-02-17] MEDS: Calcium Carbonate 500 MG ChewTAB PO SCH ×3 (08:48→16:20)
[2019-02-17] MEDS: Thiamine 100 MG TAB PO SCH (08:48)
[2019-02-17] MEDS: Folic Acid 1 MG TAB PO SCH (08:48)
[2019-02-17] MEDS: Sodium Chloride 0.65% Nasal 44 ML BOT EA NARE PRN (08:48)
[2019-02-17] MEDS: Loratadine 10 MG TAB PO PRN (08:48)
--- NOTE | 2019-02-17 11:17 | PRG ---
DATE OF SERVICE: 02/17/2019 SUBJECTIVE: The patient became somewhat agitated today and required extra dose of Haldol with no injuries to himself or the nurses. OBJECTIVE: VITAL SIGNS: Still stable with a blood pressure 127/72, temperature is 98, pulse 74, respirations 16, O2 sats 99% on room air. GENERAL: The patient now stable and not agitated. No further complaints of shoulder pain. ASSESSMENT: 1. Wernicke encephalopathy with an occasional agitation requiring p.r.n. Haldol in addition to routine Seroquel. 2. Seizure disorder, controlled on Dilantin. 3. Resolved malnutrition. 4. Persistent deconditioning secondary to patient refusal to cooperate with therapy and underlying Wernicke encephalopathy and instability. PLAN: Continue to monitor closely for seizures. Continue fall risk. Job ID: [id number]
--- NOTE | 2019-02-17 11:32 | PRG ---
DATE OF SERVICE: 02/11/2019 SUBJECTIVE: The patient is feeling well, still somewhat confused, somewhat agitated, but in no distress. OBJECTIVE: VITAL SIGNS: Show temperature is 97, pulse 71, respirations 20, O2 sats 100% on room air, blood pressure 145/71. LUNGS: Clear. CARDIAC: Regular rhythm. ABDOMEN: Soft and nontender. ASSESSMENT: 1. Stable Wernicke encephalopathy with behavioral disturbance, on Seroquel 75 three times daily. 2. Seizure disorder with low normal, but therapeutic Dilantin levels. No further seizures. 3. Resolving malnutrition. 4. Persistent deconditioning as the patient refuses therapy. PLAN: 1. Await results of legal decision on discharge planning. 2. Continue Seroquel. 3. Continue Dilantin. 4. Monitor for falls. Job ID: [id number]
--- NOTE | 2019-02-17 11:41 | PRG ---
DATE OF SERVICE: 02/16/2019 SUBJECTIVE: The patient feels well today, resting. No complaints, but has become agitated again during the night. OBJECTIVE: VITAL SIGNS: Shows temperature is 97.7, pulse 75, respirations 18, O2 sats 96% on room air. LUNGS: Clear. CARDIAC: Examination is regular rhythm. ASSESSMENT: 1. Persistent behavioral disturbances, on Seroquel. 2. No further seizures on Dilantin. PLAN: Increase Seroquel to 100, three times daily, repeat laboratories next week and may need to add another antiepileptic. Job ID: [id number]
--- NOTE | 2019-02-17 11:42 | PRG ---
DATE OF SERVICE: 02/15/2019 SUBJECTIVE: Patient had an episode of unresponsiveness today, felt to possibly be seizure disorder, although he awakened with no difficulty and did not remember it. LABORATORY DATA: His laboratory repeated showed Dilantin level still therapeutic at 11.6. OBJECTIVE: NEUROLOGIC: Remained within normal limits. LUNGS: Clear. VITAL SIGNS: Show no changes. Temperature 96.3, pulse 82, respirations 18, O2 saturations 97%. ASSESSMENT: 1. Possible petit mal seizure, but with therapeutic Dilantin level. We will continue to monitor on this dose of Dilantin and repeat level again in several days. 2. Deconditioning persistent secondary to mental to cooperate with PT. 3. Malnutrition, resolved. 4. Persistent Wernicke encephalopathy. PLAN: 1. Continue to monitor closely recurrent seizures and may need to increase Dilantin or add another drug. 2. Continue Seroquel for control of agitation from Wernicke encephalopathy. 3. Continue to monitor for falls. Job ID: [id number]
[2019-02-17] MEDS: Nicotine 14 MG PATCH TOP SCH (17:00)
--- NOTE | 2019-02-17 19:33 | PRG ---
DATE OF SERVICE: 02/17/2019 SUBJECTIVE: The patient feels well, sleepy today, less agitated on increased Seroquel. OBJECTIVE: VITAL SIGNS: Show temperature is 97.8, pulse 84, respirations 18, O2 sats 97% on room air, and blood pressure 132/86. LUNGS: Clear. CARDIAC: Regular rhythm. ASSESSMENT: 1. Stable Wernicke encephalopathy with increased sedation, on Seroquel increased to 100 mg three times daily. 2. Seizure disorder. No recurrence on Dilantin and will check level tomorrow. 3. Deconditioning, improved, but still weak and prone to falls. 4. Malnutrition resolved. PLAN: Continue to monitor closely. Discuss discharge planning with administration. Job ID: [id number]
[2019-02-17] MEDS: Haloperidol 5 MG TAB PO SCH (20:40)
[2019-02-18] MEDS: Calcium Carbonate 500 MG ChewTAB PO SCH ×3 (05:45→12:43)
[2019-02-18] MEDS: Thiamine 100 MG TAB PO SCH (09:26)
[2019-02-18] MEDS: Folic Acid 1 MG TAB PO SCH (09:26)
[2019-02-18] MEDS: Ibuprofen 200 MG TAB PO PRN (09:32)
--- NOTE | 2019-02-18 12:13 | PRG ---
DATE OF SERVICE: 02/12/2019 SUBJECTIVE: The patient feels well with no complaints, not agitated today, eating well. OBJECTIVE: VITAL SIGNS: Shows blood pressure is 125/68, temperature is 97, pulse 67, respirations 18, O2 saturation is 100% on room air. LUNGS: Clear. CARDIAC: Showed regular rhythm. ABDOMEN: Soft and nontender. ASSESSMENT: 1. Stable Wernicke encephalopathy. 2. Stable seizure disorder. 3. Resolved malnutrition. 4. Persistent fall risk and deconditioning. PLAN: 1. Continue to monitor closely. Continue Dilantin. 2. Continue Seroquel. Job ID: [id number]
--- NOTE | 2019-02-18 12:14 | PRG ---
DATE OF SERVICE: 02/13/2019 SUBJECTIVE: The patient feels well, but apparently fell yesterday and hit his shoulder against the door with no complaints this time. OBJECTIVE: EXTREMITIES: Left shoulder shows some tenderness to palpation, but has good range of motion and no weakness. VITAL SIGNS: Show temperature 97.9, pulse 70, respirations 18, O2 sats 100% on room air, blood pressure 123/84. LUNGS: Clear. CARDIAC: Showed regular rhythm. ABDOMEN: Soft and nontender. NEUROLOGICAL: Shows no focal findings. ASSESSMENT: 1. Shoulder contusion secondary to fall with the patient still refusing therapy. 2. Wernicke encephalopathy, stable on Seroquel with no outbursts recently. 3. Seizure disorder, controlled on Dilantin. PLAN: 1. Continue Dilantin. 2. Continue Seroquel. 3. Monitor shoulder pain for improvement on Tylenol. Job ID: [id number]
[2019-02-18] MEDS: cloNIDine 0.1mg/24 Hour PATCH TD SCH (18:06)
[2019-02-18] MEDS: Nicotine 14 MG PATCH TOP SCH (18:06)
[2019-02-18] MEDS: Haloperidol 5 MG TAB PO SCH (20:34)
--- NOTE | 2019-02-19 05:59 | PRG ---
DATE OF SERVICE: 02/18/2019 SUBJECTIVE: Patient feels well, lying in the bed, states he is having some problems with his allergies, however, requesting antihistamine, which has been ordered. OBJECTIVE: Shows blood pressure is 110/70, temperature is 98, pulse 81, respirations 18, and O2 sats 96% on room air. ASSESSMENT: 1. Stable Wernicke encephalopathy with increased Seroquel. No further agitation in the last 2 days. 2. Seizure disorder, controlled, on Dilantin. 3. Malnutrition, resolved. 4. Deconditioning, persistent with persistent falls. PLAN: CBC, comp panel, Dilantin level in the a.m. Job ID: [id number]
[2019-02-19 06:00] LABS: #Basophils 0.1 thou/uL (0.0-0.2); #Eosinphils 0.4 thou/uL (0.0-0.7); #Monocytes 0.8 thou/uL (0.11-0.59); #Neutrophils 3.7 thou/uL (1.40-6.50); %Basophils 0.9 % (0.0-1.0); %Eosinophils 6.2 % (0.0-10.0); %Lymphocytes 28.3 % (21.0-51.0); %Monocytes 11.4 % (0.0-10.0); %Neutrophils 53.2 % (42.0-75.0); Hemoglobin 11.1 g/dL (14.0-18.0); Mean Corpuscular HGB CONC 32.2 g/dL (32.0-36.0); Mean Corpuscular Hemoglobin 29.1 pg (27.0-31.0); Mean Corpuscular Volume 90.4 fL (78.0-98.0); Mean Platelet Volume 5.8 fL (7.4-10.4); Platelet Count 234 thou/uL (130-400); RBC Distribution Width 13.2 % (11.5-14.5); Red Blood Cell (RBC) Count 3.83 mill/uL (4.70-6.10)
[2019-02-19 06:13] LABS: ALT (SGPT) 17 U/L (8-55); AST (SGOT) 17 U/L (5-34); Albumin 3.6 g/dL (3.4-4.8); Alkaline Phosphatase 122 U/L (40-150); Anion Gap 12 mmol/L (10-20); BUN (Urea Nitrogen) 24 mg/dL (8.4-25.7); Bilirubin, Total 0.2 mg/dL (0.2-1.2); Calc. Creatinine Clearance 100 mL/min (70-130); Calcium 9.1 mg/dL (7.8-10.44); Carbon Dioxide 24 mmol/L (23-31); Chloride 109 mmol/L (98-107); Estimated GFR-MDRD Greater than 90; Globulin 2.6 g/dL (2.4-3.5); Glucose 96 mg/dL (80-115); Potassium 3.9 mmol/L (3.5-5.1); Protein, Total 6.2 g/dL (5.8-8.1); Sodium 141 mmol/L (136-145)
[2019-02-19] MEDS: Calcium Carbonate 500 MG ChewTAB PO SCH ×3 (08:30→17:25)
[2019-02-19] MEDS: Thiamine 100 MG TAB PO SCH (08:30)
[2019-02-19] MEDS: Folic Acid 1 MG TAB PO SCH (08:33)
[2019-02-19] MEDS: Haloperidol 5 MG TAB PO PRN (11:20)
[2019-02-19] MEDS: Nicotine 14 MG PATCH TOP SCH (17:25)
[2019-02-19] MEDS ORDERED: Sodium Chloride 0.9% 0 ML ONE (20:53)
[2019-02-19] MEDS: Haloperidol 5 MG TAB PO SCH (21:02)
[2019-02-20] MEDS: Folic Acid 1 MG TAB PO SCH (08:49)
[2019-02-20] MEDS: Sodium Chloride 0.65% Nasal 44 ML BOT EA NARE PRN (08:49)
[2019-02-20] MEDS: Calcium Carbonate 500 MG ChewTAB PO SCH ×3 (08:49→17:53)
[2019-02-20] MEDS: Thiamine 100 MG TAB PO SCH (08:49)
[2019-02-20] MEDS: Loratadine 10 MG TAB PO PRN (08:49)
[2019-02-20] MEDS: Nicotine 14 MG PATCH TOP SCH (17:50)
[2019-02-20] MEDS: Haloperidol 5 MG TAB PO SCH (20:14)
--- NOTE | 2019-02-20 20:27 | PRG ---
DATE OF SERVICE: 02/19/2019 SUBJECTIVE: The patient feels well. No complaints, not agitated, but is confused, but not lethargic. OBJECTIVE: VITAL SIGNS: Show temperature is 98.2, pulse 76, respirations 18, O2 saturations 99% on room air, blood pressure 146/78. LUNGS: Clear. CARDIAC: Showed regular rhythm. ABDOMEN: Soft and nontender. SKIN AND EXTREMITIES: Show no edema, clubbing, or cyanosis. ASSESSMENT: 1. Stable Wernicke encephalopathy. 2. Stable seizure disorder. 3. Stable behavioral disturbances. 4. Improved nutrition. 5. Persistent deconditioning. PLAN: Check labs tomorrow and CBC, comprehensive metabolic profile, Dilantin level. Continue to discuss legal discharge plans with hospital. Job ID: [id number]
--- NOTE | 2019-02-21 07:53 | PRG ---
DATE OF SERVICE: 02/20/2019 SUBJECTIVE: The patient feels well. No complaints. Lying in the bed, resting, has not been agitated today. OBJECTIVE: VITAL SIGNS: Show temperature is 98, pulse 76, respirations 18, O2 saturations 95% on room air, and blood pressure 150/78. LABORATORY DATA: Laboratory shows white count 7000, hematocrit 34, hemoglobin 11. Sodium 141, potassium 3.9, chloride 109, bicarb 24, BUN 24, creatinine 0.76, glucose 96, calcium 9.1, total bilirubin 0.2. No urine was done. Toxicology shows Dilantin level still almost subtherapeutic at 10.5. ASSESSMENT: 1. Wernicke encephalopathy, stable on Seroquel. 2. Seizure disorder, minimally controlled on lower dose of Dilantin and we will increase to 400 mg daily. 3. Malnutrition, resolved. 4. Deconditioning, persistent. PLAN: Check Dilantin level 3 days, increase Dilantin to 400 mg nightly. Continue Seroquel. The patient refuses PT, OT. Job ID: [id number]
[2019-02-21] MEDS: Calcium Carbonate 500 MG ChewTAB PO SCH ×3 (09:01→16:29)
[2019-02-21] MEDS: Sodium Chloride 0.65% Nasal 44 ML BOT EA NARE PRN ×2 (09:02→20:41)
[2019-02-21] MEDS: Loratadine 10 MG TAB PO PRN (09:02)
[2019-02-21] MEDS: Thiamine 100 MG TAB PO SCH (09:02)
[2019-02-21] MEDS: Folic Acid 1 MG TAB PO SCH (09:02)
[2019-02-21] MEDS: Nicotine 14 MG PATCH TOP SCH (17:13)
[2019-02-21] MEDS: Haloperidol 5 MG TAB PO SCH (20:41)
[2019-02-22] MEDS: Folic Acid 1 MG TAB PO SCH (08:30)
[2019-02-22] MEDS: Calcium Carbonate 500 MG ChewTAB PO SCH ×3 (08:30→17:33)
[2019-02-22] MEDS: Thiamine 100 MG TAB PO SCH (08:30)
[2019-02-22] MEDS: Sodium Chloride 0.65% Nasal 44 ML BOT EA NARE PRN ×2 (11:19→15:18)
[2019-02-22] MEDS: Nicotine 14 MG PATCH TOP SCH (17:34)
[2019-02-22] MEDS: Haloperidol 5 MG TAB PO SCH (20:15)
[2019-02-23] MEDS: Ibuprofen 200 MG TAB PO PRN (00:01)
[2019-02-23] MEDS: Calcium Carbonate 500 MG ChewTAB PO SCH ×3 (08:05→17:06)
[2019-02-23] MEDS: Folic Acid 1 MG TAB PO SCH (08:06)
[2019-02-23] MEDS: Thiamine 100 MG TAB PO SCH (08:06)
--- NOTE | 2019-02-23 08:19 | PRG ---
DATE OF SERVICE: 02/23/2019 SUBJECTIVE: Mr. Eldridge is a 69-year-old white male with severe alcoholic Wernicke-Korsakoff encephalopathy. He does not recognize me again, although I have seen him several times. He apparently was admitted to the hospital and has no family members to take over his care. His care is being determined by the courts and he remains in the hospital indefinitely until he has placement. The patient states he has no complaints today and ate well and is ready for his breakfast. Occasionally he gets agitated, has to have a shot of Haldol, but so far this morning he is doing well. OBJECTIVE: VITAL SIGNS: Reveal blood pressure 146/72, pulse 76-77, respirations 18 to 19, and O2 saturation 98% to 99% on room air. T-max 98.1. GENERAL: This is a well-developed, well-nourished, thin white male, in no apparent distress at this time. HEENT: Normocephalic and nontraumatic cranium. Pupils are equal, round, and reactive. Extraocular movements are intact. Nose and throat are slightly dry. NECK: Supple without masses, nodes or bruits. CHEST: Clear to auscultation. No rales or rhonchi. No wheezes are heard. HEART: Reveals a regular rate and rhythm without murmurs, gallops, or rubs. ABDOMEN: Soft, scaphoid, nontender without organomegaly. Normal bowel sounds are noted in all 4 quadrants. No rebound or guarding is noted. : Deferred. EXTREMITIES: Reveal no clubbing, cyanosis, or edema. The patient is oriented to person, but not place or time. ASSESSMENT: 1. Severe Wernicke-Korsakoff encephalopathy. 2. The patient is unable to care for himself because of severe Wernicke-Korsakoff encephalopathy. 3. Seizure disorder, controlled on Dilantin. 4. Resolved aspiration pneumonia. 5. Severe deconditioning. 6. Malnutrition. 7. Confusion. PLAN: 1. Continue supportive care. 2. Continue present medications. 3. Encourage the patient to eat well. 4. Awaiting guardianship to be determined by the courts. 5. Awaiting placement. Job ID: [id number]
[2019-02-23] MEDS: Nicotine 14 MG PATCH TOP SCH (17:06)
[2019-02-23] MEDS: Haloperidol 5 MG TAB PO SCH (20:37)
[2019-02-24] MEDS: Haloperidol 5 MG TAB PO PRN (03:09)
[2019-02-24] MEDS: Ibuprofen 200 MG TAB PO PRN ×2 (03:10→17:53)
--- NOTE | 2019-02-24 07:54 | PRG ---
DATE OF SERVICE: 02/24/2019 SUBJECTIVE: Mr. Eldridge is a very pleasant 69-year-old white male with severe alcoholic Wernicke-Korsakoff encephalopathy. The patient was resting and ended up getting very agitated last night and had to have a dose of Haldol. He is being admitted to the hospital because he had no caregivers to take care of him and unfortunately, he remains within the hospital indefinitely because courts have not placed him in a facility yet. The patient has no complaints today, but he had to have a dose of Haldol late last night to keep him calm. OBJECTIVE: VITAL SIGNS: Today reveal blood pressure 129/71, pulse 73 to 74, respirations 20, O2 saturation 97% to 99% on room air, and T-max 98.1. GENERAL: This is a well developed, well nourished but thin 69-year-old white male, who occasionally gets very agitated for no reason. Most likely, it is his Wernicke-Korsakoff encephalopathy. HEENT: Reveals normocephalic and nontraumatic cranium. Pupils are equally round and reactive. Extraocular movements are intact. Nose and throat are slightly dry but clear. NECK: Supple without masses, nodes, or bruits. CHEST: Clear to auscultation. No rales, rhonchi, or wheezes are heard. No cough is noted. HEART: Reveals a regular rate and rhythm without murmurs, gallops, or rubs. ABDOMEN: Soft, nontender without organomegaly. Normal bowel sounds are noted in all 4 quadrants. No rebound or guarding is noted. : Deferred. EXTREMITIES: Reveal no clubbing, cyanosis, or edema. NEUROLOGIC: The patient is oriented to person, but not to place or time. ASSESSMENT: 1. Severe Wernicke-Korsakoff encephalopathy. 2. The patient is unable to care for himself because of above. 3. Seizure disorder, presently controlled on Dilantin. 4. Aspiration pneumonia, resolved. 5. Severe deconditioning. 6. Malnutrition. 7. Confusion. PLAN: 1. Continue supportive care. 2. Continue his present medications. 3. Encourage the patient to eat well. 4. Awaiting guardianship to be appointed by the courts. 5. Awaiting placement. Job ID: [id number]
[2019-02-24] MEDS: Calcium Carbonate 500 MG ChewTAB PO SCH ×3 (09:07→17:54)
[2019-02-24] MEDS: Sodium Chloride 0.65% Nasal 44 ML BOT EA NARE PRN ×2 (09:07→14:38)
[2019-02-24] MEDS: Thiamine 100 MG TAB PO SCH (09:08)
[2019-02-24] MEDS: Folic Acid 1 MG TAB PO SCH (09:08)
[2019-02-24] MEDS: Nicotine 14 MG PATCH TOP SCH (17:55)
[2019-02-24] MEDS: Haloperidol 5 MG TAB PO SCH (20:36)
[2019-02-25] MEDS: Folic Acid 1 MG TAB PO SCH (08:24)
[2019-02-25] MEDS: Thiamine 100 MG TAB PO SCH (08:25)
[2019-02-25] MEDS: Calcium Carbonate 500 MG ChewTAB PO SCH ×3 (08:27→18:20)
--- NOTE | 2019-02-25 11:41 | PRG ---
DATE OF SERVICE: 02/25/2019 SUBJECTIVE: The patient up in the walker, attempting to walk out of room without assistance, and had to be stopped, and monitored by the nurses. OBJECTIVE: VITAL SIGNS: Show him to have temperature of 98, pulse 80, respirations 16, O2 saturations 100% on room air, and blood pressure 146/76. LUNGS: Clear. CARDIAC: Regular rhythm. ABDOMEN: Soft and nontender. SKIN AND EXTREMITIES: No edema, clubbing, or cyanosis. ASSESSMENT: 1. Controlled seizure disorder, on increased Dilantin with Dilantin level last week of 13. 2. Wernicke encephalopathy with behavioral disturbance, controlled on Seroquel 100 three times daily, monitoring. No evidence of exacerbation recently. 3. Severe deconditioning with persistent fall risk and refusal of physical therapy. Continue to monitor. PLAN: 1. Continue seizure precautions. 2. Continue fall precautions. 3. Continue Seroquel for behavioral disturbance. 4. Continue Dilantin 400 nightly for seizure. Job ID: [id number]
--- NOTE | 2019-02-25 11:44 | PRG ---
DATE OF SERVICE: 02/22/2019 SUBJECTIVE: The patient feels well with no complaints, lying in the room, has not fallen, has not become agitated for the last several days, eating fairly well, but still fairly confused. OBJECTIVE: VITAL SIGNS: Temperature is 97.8, pulse 77, respirations 18, O2 saturations 99% on room air, and blood pressure is 119/73. LUNGS: Clear. CARDIAC: Showed regular rhythm. ABDOMEN: Soft and nontender. SKIN/EXTREMITIES: Show no edema, clubbing, or cyanosis. NEUROLOGIC: Intact. ASSESSMENT: 1. Stable Wernicke encephalopathy. 2. Stable seizure disorder. 3. Improving nutrition. 4. Persistent deconditioning. PLAN: 1. Continue Dilantin 400 mg nightly. 2. Continue Seroquel 100 three times daily. 3. Continue to monitor fall risk. 4. Continue seizure precautions. 5. Discussed with the hospital about ongoing negotiation is to have the patient placed in long term. Job ID: [id number]
--- NOTE | 2019-02-25 11:48 | PRG ---
DATE OF SERVICE: 02/21/2019 SUBJECTIVE: The patient feels well. No complaints. No agitation for the last several days. No significant increased lethargy. OBJECTIVE: VITAL SIGNS: Show blood pressure is 121/72, temperature is 98, pulse 85, respirations 20, and O2 sats 97% on room air. LUNGS: Clear. CARDIAC: Showed regular rhythm. ABDOMEN: Soft and nontender. ASSESSMENT: 1. Stable Wernicke encephalopathy. 2. Resolving malnutrition. 3. Persistent deconditioning with multiple falls. 4. Persistent seizure disorder, but now with increased Dilantin level of 13 in no recurrence. PLAN: 1. Continue nutritional support. 2. Continue to monitor for recurrent falls. 3. Continue Dilantin at 400 mg every night. 4. Continue Seroquel 100 mg three times daily. Job ID: [id number]
[2019-02-25] MEDS: cloNIDine 0.1mg/24 Hour PATCH TD SCH (18:21)
[2019-02-25] MEDS: Nicotine 14 MG PATCH TOP SCH (19:20)
[2019-02-25] MEDS: Ibuprofen 200 MG TAB PO PRN (20:16)
[2019-02-25] MEDS: Haloperidol 5 MG TAB PO SCH (20:16)
[2019-02-26] MEDS: Folic Acid 1 MG TAB PO SCH (08:44)
[2019-02-26] MEDS: Thiamine 100 MG TAB PO SCH (08:44)
[2019-02-26] MEDS: Loratadine 10 MG TAB PO PRN (08:44)
[2019-02-26] MEDS: Calcium Carbonate 500 MG ChewTAB PO SCH ×3 (08:44→16:50)
[2019-02-26] MEDS: Sodium Chloride 0.65% Nasal 44 ML BOT EA NARE PRN (08:45)
[2019-02-26] MEDS: Nicotine 14 MG PATCH TOP SCH (17:20)
[2019-02-26] MEDS: Haloperidol 5 MG TAB PO SCH (21:10)
[2019-02-26] MEDS: Ibuprofen 200 MG TAB PO PRN (21:10)
--- NOTE | 2019-02-27 07:51 | PRG ---
DATE OF SERVICE: 02/26/2019 SUBJECTIVE: The patient feels well, up in a walker, walking, but still unsteady with no recent falls. No increased agitation. OBJECTIVE: VITAL SIGNS: Show temperature is 98.2, pulse 68, respirations 16, O2 sats 99% on room air, blood pressure 134/73. LUNGS: Clear. CARDIAC: Showed regular rhythm. ABDOMEN: Soft and nontender. ASSESSMENT: 1. Stable Wernicke encephalopathy with behavioral disturbance, on Seroquel. 2. Seizure disorder, controlled with therapeutic Dilantin. 3. Resolving malnutrition. 4. Persistent deconditioning with inability to tolerate with physical therapy. PLAN: 1. Continue safety precautions. 2. Continue seizure precautions. 3. Continue Seroquel for behavioral disturbances. 4. Continue Dilantin as ordered 400 mg as therapeutic level. 5. Await discharge plan from hospital and batch analyst. Job ID: [id number]
[2019-02-27] MEDS: Thiamine 100 MG TAB PO SCH (08:18)
[2019-02-27] MEDS: Calcium Carbonate 500 MG ChewTAB PO SCH ×3 (08:18→17:49)
[2019-02-27] MEDS: Folic Acid 1 MG TAB PO SCH (08:18)
[2019-02-27] MEDS: Nicotine 14 MG PATCH TOP SCH (17:49)
[2019-02-27] MEDS: Haloperidol 5 MG TAB PO SCH (20:40)
[2019-02-28] MEDS: Ibuprofen 200 MG TAB PO PRN (05:02)
[2019-02-28] MEDS: Folic Acid 1 MG TAB PO SCH (08:31)
[2019-02-28] MEDS: Calcium Carbonate 500 MG ChewTAB PO SCH ×3 (08:31→18:15)
[2019-02-28] MEDS: Thiamine 100 MG TAB PO SCH (08:31)
[2019-02-28] MEDS: Sodium Chloride 0.65% Nasal 44 ML BOT EA NARE PRN (08:32)
[2019-02-28] MEDS: Haloperidol 5 MG TAB PO PRN (15:50)
[2019-02-28] MEDS: Nicotine 14 MG PATCH TOP SCH (18:15)
[2019-02-28 19:12] LABS: #Basophils 0.1 thou/uL (0.0-0.2); #Eosinphils 0.6 thou/uL (0.0-0.7); #Lymphocytes 1.9 thou/uL (1.20-3.40); #Monocytes 0.7 thou/uL (0.11-0.59); #Neutrophils 3.3 thou/uL (1.40-6.50); %Basophils 1.1 % (0.0-1.0); %Eosinophils 9.8 % (0.0-10.0); %Lymphocytes 28.6 % (21.0-51.0); %Monocytes 10.3 % (0.0-10.0); %Neutrophils 50.2 % (42.0-75.0); Hemoglobin 11.3 g/dL (14.0-18.0); Mean Corpuscular Hemoglobin 29.5 pg (27.0-31.0); Mean Corpuscular Volume 92.4 fL (78.0-98.0); Mean Platelet Volume 6.5 fL (7.4-10.4); Platelet Count 219 thou/uL (130-400); RBC Distribution Width 13.9 % (11.5-14.5); Red Blood Cell (RBC) Count 3.82 mill/uL (4.70-6.10); White Blood Cell (WBC) Count 6.5 thou/uL (4.8-10.8)
[2019-02-28 19:26] LABS: ALT (SGPT) 19 U/L (8-55); AST (SGOT) 21 U/L (5-34); Albumin 3.7 g/dL (3.4-4.8); Alkaline Phosphatase 133 U/L (40-150); Anion Gap 14 mmol/L (10-20); BUN (Urea Nitrogen) 29 mg/dL (8.4-25.7); Bilirubin, Total 0.2 mg/dL (0.2-1.2); Calc. Creatinine Clearance 88 mL/min (70-130); Calcium 9.2 mg/dL (7.8-10.44); Carbon Dioxide 25 mmol/L (23-31); Chloride 106 mmol/L (98-107); Estimated GFR-MDRD 88; Globulin 2.7 g/dL (2.4-3.5); Glucose 129 mg/dL (80-115); Potassium 4.1 mmol/L (3.5-5.1); Protein, Total 6.4 g/dL (5.8-8.1); Sodium 141 mmol/L (136-145)
[2019-02-28] MEDS: Haloperidol 5 MG TAB PO SCH (21:09)
[2019-03-01 07:28] VITALS: BP 135/95; TEMP 98.3
--- NOTE | 2019-03-01 07:39 | PRG ---
DATE OF SERVICE: 02/27/2019 SUBJECTIVE: The patient feels well with no complaints, lying in bed, no agitation, eating well. OBJECTIVE: VITAL SIGNS: Show temperature 96.9, pulse 75, respirations 18, O2 saturations 98% on room air, blood pressure is 108/58. LUNGS: Clear. CARDIAC: Showed regular rhythm. ABDOMEN: Soft and nontender. SKIN/EXTREMITIES: Displayed no edema, clubbing, or cyanosis. NEUROLOGIC: Intact. ASSESSMENT: 1. Stable Wernicke encephalopathy with behavioral disturbance, controlled on medications. 2. Seizure disorder, controlled on Dilantin with therapeutic level. 3. Malnutrition, resolved. 4. Physical deconditioning, persistent secondary to refusal to cooperate. PLAN: 1. Continue to evaluate for possible transfer to [facility] tomorrow. 2. Repeat Dilantin level tomorrow. 3. Repeat laboratories in the a.m. Job ID: [id number]
[2019-03-01] MEDS: Loratadine 10 MG TAB PO PRN (08:29)
[2019-03-01] MEDS: Folic Acid 1 MG TAB PO SCH (08:29)
[2019-03-01] MEDS: Sodium Chloride 0.65% Nasal 44 ML BOT EA NARE PRN (08:29)
[2019-03-01] MEDS: Thiamine 100 MG TAB PO SCH (08:29)
[2019-03-01] MEDS: Calcium Carbonate 500 MG ChewTAB PO SCH ×2 (08:29→11:21)
== END 2019-03-01 16:20 | DRG 640 ==
LOC: NAV ACUTE 21:56
PROVIDERS: ADMIT Internal Medicine; ATTEND Internal Medicine
DX: E51.2 Wernicke's encephalopathy (principal); J69.0 Pneumonitis due to inhalation of food and vomit; N39.0 Urinary tract infection, site not specified; E46 Unspecified protein-calorie malnutrition; R53.81 Other malaise; R53.1 Weakness; I10 Essential (primary) hypertension; G40.909 Epilepsy, unspecified, not intractable, without status epilepticus; F10.10 Alcohol abuse, uncomplicated; B96.1 Klebsiella pneumoniae [K. pneumoniae] as the cause of diseases classified elsewhere; G31.2 Degeneration of nervous system due to alcohol; J30.9 Allergic rhinitis, unspecified; T42.0X5A Adverse effect of hydantoin derivatives, initial encounter; F91.9 Conduct disorder, unspecified; R29.6 Repeated falls; R89.2 Abnormal level of other drugs, medicaments and biological substances in specimens from other organs, systems and tissues; S40.019A Contusion of unspecified shoulder, initial encounter; F17.200 Nicotine dependence, unspecified, uncomplicated; Z68.21 Body mass index [BMI] 21.0-21.9, adult; Z91.19 Patient's noncompliance with other medical treatment and regimen; W01.10XA Fall on same level from slipping, tripping and stumbling with subsequent striking against unspecified object, initial encounter; Y92.239 Unspecified place in hospital as the place of occurrence of the external cause
CPT/HCPCS: 36415; 36416; 70450; 72125; 80053; 80185; 81001; 85025; 87077; 87086; 87186; 90471; 90662; 90670; G0008; G0009; G8996-GN-CI; G8996-GN-CJ; G8997-GN-CI; G8998-GN-CI; J1165; J1630; J1650

== ENCOUNTER 2019-04-18 13:22 | Emergency (ER) | payer MEDICARE ==
[2019-04-18 14:09] LABS: #Basophils 0.1 thou/uL (0.0-0.2); #Eosinphils 1.3 thou/uL (0.0-0.7); #Lymphocytes 1.5 thou/uL (1.20-3.40); #Monocytes 0.6 thou/uL (0.11-0.59); #Neutrophils 5.2 thou/uL (1.40-6.50); %Basophils 0.6 % (0.0-1.0); %Eosinophils 14.7 % (0.0-10.0); %Lymphocytes 17.3 % (21.0-51.0); %Monocytes 6.7 % (0.0-10.0); %Neutrophils 60.8 % (42.0-75.0); Hemoglobin 12.7 g/dL (14.0-18.0); Mean Corpuscular HGB CONC 31.8 g/dL (32.0-36.0); Mean Corpuscular Hemoglobin 28.6 pg (27.0-31.0); Mean Corpuscular Volume 90.1 fL (78.0-98.0); Mean Platelet Volume 6.2 fL (7.4-10.4); Platelet Count 244 thou/uL (130-400); RBC Distribution Width 12.1 % (11.5-14.5); Red Blood Cell (RBC) Count 4.44 mill/uL (4.70-6.10); White Blood Cell (WBC) Count 8.5 thou/uL (4.8-10.8)
[2019-04-18 14:10] LABS: Bilirubin Negative (Negative); Blood, Urine Trace (Negative); Glucose, Urine (Dipstick) Negative (Negative); Leukocyte Large (Negative); Nitrite Positive (Negative); Protein, Urine (Dipstick) Negative (Neg-Trace); Urobilinogen 0.2 mg/dL (0.2-1.0); pH, Urine 7.5 (5.0-9.0)
--- NOTE | 2019-04-18 14:10 | CT ---
CT BRAIN WITHOUT CONTRAST: HISTORY: Trauma. Fell out of bed. Headache COMPARISON: 10/19/2018. FINDINGS: Changes of cortical atrophy and chronic small vessel ischemic disease are redemonstrated. No evidence of acute infarct, hemorrhage, midline shift or abnormal extra-axial fluid collections is seen. The ventricular size is stable and the basilar cisterns are patent. The bony calvarium is intact. There i s mucosal disease in the paranasal sinuses. IMPRESSION: No CT evidence of acute intracranial process.
[2019-04-18 14:24] LABS: Bacteria/HPF 4+ HPF (None Seen); Clarity SL HAZY (Clear)
[2019-04-18 14:28] LABS: ALT (SGPT) 12 U/L (8-55); AST (SGOT) 16 U/L (5-34); Albumin 3.8 g/dL (3.4-4.8); Alkaline Phosphatase 118 U/L (40-150); Anion Gap 13 mmol/L (10-20); BUN (Urea Nitrogen) 13 mg/dL (8.4-25.7); Bilirubin, Total 0.1 mg/dL (0.2-1.2); Calc. Creatinine Clearance 0 mL/min (70-130); Calcium 9.1 mg/dL (7.8-10.44); Carbon Dioxide 28 mmol/L (23-31); Chloride 106 mmol/L (98-107); Estimated GFR-MDRD Greater than 90; Globulin 2.6 g/dL (2.4-3.5); Glucose 112 mg/dL (80-115); Potassium 3.9 mmol/L (3.5-5.1); Protein, Total 6.4 g/dL (5.8-8.1); Sodium 143 mmol/L (136-145)
[2019-04-18] MEDS ORDERED: Sulfameth/Trimethoprim DS 800-160mg TAB ONE (14:52)
== END 2019-04-18 15:36 ==
LOC: NAV ERS 13:22
DX: F03.90 Unspecified dementia, unspecified severity, without behavioral disturbance, psychotic disturbance, mood disturbance, and anxiety (principal); N39.0 Urinary tract infection, site not specified; I10 Essential (primary) hypertension; Z79.899 Other long term (current) drug therapy; Z79.1 Long term (current) use of non-steroidal anti-inflammatories (NSAID); W06.XXXA Fall from bed, initial encounter
CPT/HCPCS: 70450; 80053; 81003; 81015; 84484; 85025; 93005; 94760

== ENCOUNTER 2020-07-04 09:52 | Emergency (ER) | payer MEDICARE, OTHER ==
[2020-07-06 13:03] LABS: SARS-CoV-2 MS2 Positive; SARS-CoV-2 N Gene Negative; SARS-CoV-2 S Gene Negative; SARS-CoV-2 by NAA Not Detected (NotDetected); SARS-CoV-2 orf1ab Negative
== END 2020-07-04 12:24 ==
LOC: NAV ERS 09:52
DX: R52 Pain, unspecified (principal); Z20.828 Contact with and (suspected) exposure to other viral communicable diseases; I10 Essential (primary) hypertension; Z79.899 Other long term (current) drug therapy
CPT/HCPCS: 87635; 99284; U0003

== ENCOUNTER 2020-12-27 12:30 | Emergency (ER) | payer MEDICAID, MEDICARE ==
[2020-12-27 13:04] LABS: #Basophils 0.1 thou/uL (0.0-0.2); #Eosinphils 0.3 thou/uL (0.0-0.7); #Lymphocytes 1.9 thou/uL (1.20-3.40); #Monocytes 0.5 thou/uL (0.11-0.59); #Neutrophils 3.5 thou/uL (1.40-6.50); %Lymphocytes 30.8 % (21.0-51.0); %Monocytes 8.2 % (0.0-10.0); %Neutrophils 56.1 % (42.0-75.0); Hemoglobin 13.3 g/dL (14.0-18.0); Mean Corpuscular HGB CONC 31.6 g/dL (32.0-36.0); Mean Corpuscular Hemoglobin 28.2 pg (27.0-31.0); Mean Corpuscular Volume 89.3 fL (78.0-98.0); Mean Platelet Volume 5.9 fL (7.4-10.4); Platelet Count 342 thou/uL (130-400); RBC Distribution Width 12.8 % (11.5-14.5); White Blood Cell (WBC) Count 6.3 thou/uL (4.8-10.8)
[2020-12-27 13:20] LABS: ALT (SGPT) 12 U/L (8-55); AST (SGOT) 16 U/L (5-34); Alkaline Phosphatase 142 U/L (40-110); Anion Gap 16 mmol/L (10-20); BUN (Urea Nitrogen) 15 mg/dL (8.4-25.7); Bilirubin, Total 0.2 mg/dL (0.2-1.2); CK (CPK) 88 U/L (30-200); Calc. Creatinine Clearance 0 mL/min (70-130); Calcium 8.3 mg/dL (7.8-10.44); Carbon Dioxide 23 mmol/L (23-31); Chloride 103 mmol/L (98-107); Globulin 3.1 g/dL (2.4-3.5); Glucose 105 mg/dL (80-115); Lipase 43 U/L (8-78); Magnesium 2.3 mg/dL (1.6-2.6); Protein, Total 7.1 g/dL (5.8-8.1); Sodium 138 mmol/L (136-145)
--- NOTE | 2020-12-27 13:30 | RAD ---
RADIOGRAPH CHEST 1 VIEW: DATE: 12/27/2020 HISTORY: 70-year-old male with chest pain FINDINGS: There are no airspace densities, pulmonary edema, pneumothorax, or cardiomegaly. The lateral costophr enic angles are sharp. IMPRESSION: No acute cardiopulmonary findings.
[2020-12-27] MEDS ORDERED: Aspirin Chewable 81 MG TAB ONE (13:51)
[2020-12-27 13:58] LABS: Bilirubin Negative (Negative); Blood, Urine Negative (Negative); Glucose, Urine (Dipstick) Negative (Negative); Ketone, Urine Negative (Negative); Leukocyte Small (Negative); Nitrite Positive (Negative); Protein, Urine (Dipstick) Negative (Neg-Trace); Urobilinogen 0.2 mg/dL (Less than 2); pH, Urine 7.5 (5.0-9.0)
[2020-12-27 14:13] LABS: Clarity SL HAZY (Clear)
[2020-12-27 14:17] LABS: Bacteria/HPF 3+ HPF (None Seen); Squamous Epithelial 0-3 HPF (0-3)
[2020-12-27] MEDS ORDERED: Cephalexin 250 MG CAP ONE (14:37)
[2020-12-27 15:10] LABS: Troponin I Less than 0.010 ng/mL (< 0.028)
== END 2020-12-27 16:54 ==
LOC: NAV ERS 12:30
DX: R07.89 Other chest pain (principal); N39.0 Urinary tract infection, site not specified; E51.2 Wernicke's encephalopathy; I10 Essential (primary) hypertension; Z79.1 Long term (current) use of non-steroidal anti-inflammatories (NSAID); Z79.899 Other long term (current) drug therapy
CPT/HCPCS: 71045; 80053; 81003; 81015; 82550; 83690; 83735; 84484; 85025; 87077; 87086; 87186; 93005; 94760

== ENCOUNTER 2022-01-16 14:11 | Emergency (ER) | payer MEDICAID, MEDICARE ==
[2022-01-16 14:46] LABS: #Basophils 0.1 thou/uL (0.0-0.2); #Eosinphils 0.3 thou/uL (0.0-0.7); #Lymphocytes 1.4 thou/uL (1.20-3.40); #Monocytes 0.9 thou/uL (0.11-0.59); #Neutrophils 5.7 thou/uL (1.40-6.50); %Basophils 0.6 % (0.0-1.0); %Eosinophils 3.9 % (0.0-10.0); %Lymphocytes 16.3 % (21.0-51.0); %Monocytes 10.3 % (0.0-10.0); %Neutrophils 68.8 % (42.0-75.0); Hemoglobin 14.3 g/dL (14.0-18.0); Mean Corpuscular HGB CONC 32.4 g/dL (32.0-36.0); Mean Corpuscular Volume 89.5 fL (78.0-98.0); Mean Platelet Volume 6.7 fL (7.4-10.4); Platelet Count 316 thou/uL (130-400); RBC Distribution Width 13.2 % (11.5-14.5); Red Blood Cell (RBC) Count 4.92 mill/uL (4.70-6.10); White Blood Cell (WBC) Count 8.3 thou/uL (4.8-10.8)
[2022-01-16 15:00] LABS: Bilirubin Negative (Negative); Blood, Urine Trace (Negative); Clarity Cloudy (Clear); Glucose, Urine (Dipstick) Negative (Negative); Ketone, Urine Trace mg/dL (Negative); Leukocyte Moderate (Negative); Nitrite Positive (Negative); Protein, Urine (Dipstick) 30 mg/dL (Neg-Trace); Urobilinogen 0.2 mg/dL (Less than 2); pH, Urine 5.5 (5.0-9.0)
[2022-01-16 15:03] LABS: Specific Gravity, Urine 1.028 (1.005-1.030)
[2022-01-16 15:04] LABS: Acetaminophen Less than 6.0 mcg/mL (10.0-30.0); Alcohol Less than 10 mg/dL (Less than 10); Salicylate Less than 8.0 mg/dL (15.0-30.0)
[2022-01-16 15:06] LABS: ALT (SGPT) 17 U/L (8-55); AST (SGOT) 14 U/L (5-34); Albumin 4.2 g/dL (3.4-4.8); Alkaline Phosphatase 149 U/L (40-110); Anion Gap 17 mmol/L (10-20); BUN (Urea Nitrogen) 20 mg/dL (8.4-25.7); Bilirubin, Total 0.2 mg/dL (0.2-1.2); Calc. Creatinine Clearance 0 mL/min (70-130); Calcium 9.3 mg/dL (7.8-10.44); Carbon Dioxide 24 mmol/L (23-31); Chloride 104 mmol/L (98-107); Globulin 3.3 g/dL (2.4-3.5); Glucose 118 mg/dL (83-110); Protein, Total 7.5 g/dL (5.8-8.1); Sodium 141 mmol/L (136-145)
[2022-01-16 15:06] LABS: Bacteria/HPF 4+ HPF (None Seen); WBC/HPF Greater than 50 HPF (0-3)
[2022-01-16 15:11] LABS: Amphetamine Not Detected (NotDetected); Barbiturates Screen Detected (NotDetected); Benzodiazepine Screen Not Detected (NotDetected); Cocaine Metabolite Screen Not Detected (NotDetected); Medtox Control Line Valid? VALID (VALID); Methadone Not Detected (NotDetected); Methamphetamine Not Detected (NotDetected); Opiate Screen Not Detected (NotDetected); Oxycodone Screen Not Detected (NotDetected); Phencyclidine (PCP) Not Detected (NotDetected); THC/Cannabinoid Screen Not Detected (NotDetected); Tricyclic Screen Not Detected (NotDetected)
[2022-01-16] MEDS ORDERED: Sulfameth/Trimethoprim DS 800-160mg TAB ONE (15:45)
== END 2022-01-16 18:30 ==
LOC: NAV ERS 14:11
DX: F03.90 Unspecified dementia, unspecified severity, without behavioral disturbance, psychotic disturbance, mood disturbance, and anxiety (principal); N39.0 Urinary tract infection, site not specified; I10 Essential (primary) hypertension; K21.9 Gastro-esophageal reflux disease without esophagitis; M81.0 Age-related osteoporosis without current pathological fracture; J32.9 Chronic sinusitis, unspecified; Z79.899 Other long term (current) drug therapy
CPT/HCPCS: 80053; 80306; 80307; 81003; 81015; 84443; 85025; 87077; 87086; 87186; 93005

== ENCOUNTER 2023-07-28 18:30 | Emergency (ER) | payer MEDICARE, OTHER ==
[~2023-07-28 18:30] MED LIST: Iopamidol 370 76% 100 ML VIAL ONE
[2023-07-28 19:16] LABS: #Eosinphils 0.2 thou/uL (0.0-0.7); #Lymphocytes 0.9 thou/uL (1.20-3.40); #Monocytes 0.5 thou/uL (0.11-0.59); #Neutrophils 5.6 thou/uL (1.40-6.50); %Basophils 0.5 % (0.0-1.0); %Eosinophils 2.2 % (0.0-10.0); %Monocytes 7.2 % (0.0-10.0); %Neutrophils 78.1 % (42.0-75.0); Mean Corpuscular HGB CONC 31.6 g/dL (32.0-36.0); Mean Corpuscular Hemoglobin 27.7 pg (27.0-31.0); Mean Corpuscular Volume 87.6 fl (78.0-98.0); Mean Platelet Volume 5.8 fL (7.4-10.4); Platelet Count 266 10x3/uL (130-400); RBC Distribution Width 13.4 % (11.5-14.5); Red Blood Cell (RBC) Count 4.68 mill/uL (4.70-6.10); White Blood Cell (WBC) Count 7.2 10x3/uL (4.8-10.8)
[2023-07-28] MEDS ORDERED: Sodium Chloride 0.9% 1,000 ML ONE ×2 (19:16→22:08)
[2023-07-28] MEDS ORDERED: Ondansetron PF 4 MG/2 ML Vial ONE (19:16)
[2023-07-28] MEDS ORDERED: Morphine 2 MG/ML VIAL ONE (19:16)
[2023-07-28 19:34] LABS: ALT (SGPT) 23 U/L (8-55); AST (SGOT) 20 U/L (5-34); Albumin 3.8 g/dL (3.4-4.8); Alkaline Phosphatase 104 U/L (40-110); Anion Gap 13 mmol/L (10-20); BUN (Urea Nitrogen) 14 mg/dL (8.4-25.7); Bilirubin, Total 0.2 mg/dL (0.2-1.2); Calc. Creatinine Clearance 0 mL/min (70-130); Calcium 8.9 mg/dL (7.8-10.44); Carbon Dioxide 25 mmol/L (23-31); Chloride 102 mmol/L (98-107); Estimated GFR 98; Globulin 3.1 g/dL (2.4-3.5); Glucose 112 mg/dL (83-110); Lipase 22 U/L (8-78); Potassium 3.9 mmol/L (3.5-5.1); Protein, Total 6.9 g/dL (5.8-8.1); Sodium 136 mmol/L (136-145)
[2023-07-28] MEDS ORDERED: Morphine 4 MG/ML VIAL ONE (19:55)
[2023-07-28] MEDS ORDERED: fentaNYL 50 mcg/mL 1 mL Vial ONE (21:16)
[2023-07-28 21:58] LABS: Bilirubin Negative (Negative); Blood, Urine Negative (Negative); Clarity Clear (Clear); Glucose, Urine (Dipstick) Negative (Negative); Ketone, Urine Negative (Negative); Leukocyte Trace (Negative); Nitrite Negative (Negative); Protein, Urine (Dipstick) Negative (Neg-Trace); Specific Gravity, Urine 1.015 (1.005-1.030); Urobilinogen 0.2 mg/dL (Less than 2)
[2023-07-28 22:06] LABS: CAUTI Indications for Culture Pelvic or flank pain; Squamous Epithelial 0-3 HPF (0-3)
[2023-07-28 22:07] LABS: Urine Culture Reflex No No
== END 2023-07-28 22:53 | disposition short-term general hospital (02) ==
LOC: NAV ERS 18:30
DX: K40.00 Bilateral inguinal hernia, with obstruction, without gangrene, not specified as recurrent (principal); K21.9 Gastro-esophageal reflux disease without esophagitis; I10 Essential (primary) hypertension; Z79.899 Other long term (current) drug therapy
CPT/HCPCS: 36415; 43762; 71045; 74177; 80053; 81001; 83690; 85025; 96374; 96375; 96376; J2270; J2272; J2405; J3010; J7050; Q9967